=== PATIENT | female | born 1950 | race Caucasian/White ===

== ENCOUNTER → 2017-09-10 09:46 | Outpatient (CLI) | payer MEDICARE, OTHER, SELFPAY ==
--- NOTE | 2017-09-10 | DI.MRI.S_ITS ---
PROCEDURE: MR LUMBAR SPINE WO CON INDICATIONS: LUMBAR REGION RADICULOPATHY TECHNIQUE: Noncontrast sagittal T1 spin echo and T2 fast echo, sagittal STIR, axial T1 and T2 fast spin echo through the lumbar spine. In cases with scoliosis, additional coronal T2 fast spin echo may be performed. COMPARISON: [facility], RG, SPINE LUMB 2 OR 3VW, 02/02/2015, 14:52. [facility], MR, L-SPINE W&WO CONTRAST, 10/25/2015, 15:01. [facility], MR, L-SPINE WITHOUT CONTRAST, 09/13/2016, 14:03. FINDINGS: Image quality: Excellent. Alignment and Curvature: There is grade 1 anterolisthesis of L4 on L5 and L5 on S1. Bone Marrow: There is spinal fusion at L4-L5 and L5-S1. Degenerative endplate signal changes are present in lumbar spine. No acute vertebral body compression fractures. Spinal Cord: Conus medullaris terminates at the L1-L2 level. Visualized cord demonstrates normal signal and size. Paraspinous Soft Tissues: No paravertebral masses. L1-L2: Normal appearance. L2-L3: Preserved disc height. Mild disc desiccation. There is minimal posterior disc bulge. Mild bilateral facet arthropathy. No central canal nor foraminal stenosis. L3-L4: Mild loss of disc height and disc desiccation. There is posterior disc bulge and posterior/left posterior lateral disc protrusion. The central canal is moderately narrowed, slightly increased compared to the last exam. Moderate to severe left and mild to moderate right foraminal stenosis, slightly increased compared to the last exam. L4-L5: There is left hemilaminectomy and posterior fusion. There is mild posterior osteophyte. The central canal is patent. Mild bilateral foraminal stenosis, unchanged. L5-S1: There is left hemilaminectomy and posterior fusion. There is mild posterior osteophyte. The central canal is patent. [id number] bilateral foraminal stenosis, unchanged. IMPRESSION: 1. Multilevel degenerative and post surgical changes in lumbar spine as described. 2. Moderate central canal stenosis at L3-L4, increased since the last exam. 3. Moderate to severe left and mild right foraminal stenosis at L3-L4, increased since the last exam. Dictated by: Jeanna Crowe M.D. on 09/10/2017 at 13:57 Approved by: Jeanna Crowe M.D. on 09/10/2017 at 14:57
== END ==
PROVIDERS: PCP Family Medicine; Visit Provider Orthopaedic Surgery
DX: M48.061 Spinal stenosis, lumbar region without neurogenic claudication (principal); M51.16 Intervertebral disc disorders with radiculopathy, lumbar region
CPT/HCPCS: 72148

== ENCOUNTER 2017-10-29 09:12 | Inpatient (IN) | payer MEDICARE, OTHER, SELFPAY ==
[2017-10-15 12:36] VITALS: BMI 48.9
[2017-10-29] VITALS (13 sets, daily range): BP systolic 140–168; BP diastolic 68–91; PULSE 59–73; RESP 11–20; TEMP 36.1–36.8; O2SAT 94–97; BMI 47.7
--- NOTE | 2017-10-29 | DI.RAD.S_ITS ---
PROCEDURE: XR LUMBAR SPINE 2-3V INDICATIONS: LUMBAR STENOSIS AND NEUROGENIC CLAUDICATION H/O LAMINECTOMY TECHNIQUE: AP and lateral views of the lumbar spine were acquired. COMPARISON: [facility], , -SPINE 2-3 VIEWS, 10/02/2011, 8:35. FINDINGS: Intraoperative fluoroscopy was provided for the referring service. Total fluoroscopy time was 142.9 seconds with a total cumulative dose of 140.73 mGy. Provided fluoroscopic images document the presence of intervertebral disc spacer devices and posterior spinal fusion hardware involving the lower lumbar spine. IMPRESSION: Intraoperative fluoroscopy was provided for the referring service. Please consult the operative note for further details. Dictated by: Ilan Caro M.D. on 10/29/2017 at 15:50 Approved by: Ilan Caro M.D. on 10/29/2017 at 15:52
--- NOTE | 2017-10-29 10:35 | PM.PREOP ---
Pre-operative Note Interval Note Pre-op Check: Yes History & Physical Reviewed by Physician and Yes Exam Performed Changes: No
--- NOTE | 2017-10-29 10:36 | PM.OP.1 ---
Operative Date/Time/Diagnoses Date of procedure: 10/29/17 Time of procedure: 13:55 Pre-op diagnosis: Lumbar stenosis Lumbar spondylolisthesis History of lumbar laminectomy Post-op diagnosis: same Procedure & Clinicians Procedure: L3-4 anterior fusion with cage L3-4 posterior fusion with screws Iliac crest bone graft L3-4 revision laminectomy Use of microscope Placement of epidural catheter Same procedure as scheduled: Yes Indications: [age] year old female with intractable pain from stenosis. They had failed conservative management and requested operative intervention. Risks and benefits of surgery were discussed and appropriate consents were obtained. Surgeon: Rohan Steel Social Insurance Specialist: Paula Driver Anesthesia Type: General Operative Notes Findings: None Closure Type: primary Specimen(s): none sent Implants & Drains: Nuvasive XLIF cage and MAS Reline screws Applied: catheter Estimated Blood Loss (mL): 30 Blood products transfused: none Procedure in detail: Patient was brought to the operating room and intubated on the table. Time-out was performed. They were then rolled over to the lateral decubitus position with the [id number]. The table was bent and they were taped down in the correct position. X-rays were taken to confirm a true AP and lateral. Preoperative antibiotics were given. The left flank was prepped and draped in standard sterile fashion. Using fluoroscopy, a 3 cm incision was made above the iliac crest. We bluntly dissected down with Metzenbaum scissors and split the 3 abdominal muscle layers. We dissected out the retroperitoneal space and using finger guidance, brought our 1st dilator down to the psoas muscle. Using neuromonitoring and fluoroscopy, we placed it through the psoas onto the L3-4 disc space in an anterior position and gradually pulled the dilator posteriorly along the disc space. We placed our guidewire and measured our depth for the retractor. We then dilated with the next 2 dilators and then placed our retractor over the dilators. Position was confirmed with fluoroscopy and the retractor was locked down to the bar. We opened up the retractor and checked with neuro monitoring. We then placed the maria victoria and again checked with neuro monitoring. The retractor was opened further and the ALL retractor was placed. An annulotomy was performed. We then performed a complete diskectomy with ring curette, pituitary, box osteotome. A Wilson was advanced across the disc space under fluoroscopy to release the lateral annulus on the opposite side. We then used sequentially larger trials and confirmed under fluoroscopy. An XLIF cage was packed with Osteocell bone graft and impacted into the L3-4 disc space with fluoroscopy for the anterior fusion at this level. The wound was irrigated. The retractor was closed down. The maria victoria was removed. We carefully removed the retractor with direct visualization to make sure there was no neurovascular or abdominal injury. Final x-rays were taken. The muscle fascia was closed, superficial tissue was closed. The skin was closed. Sterile dressing was placed. The patient was then rolled over on the well-padded prone position on the Irwin table. Using fluoroscopy for localization, a 4 cm incision was made to the right of the midline. We used Bovie to split the fascia. We then percutaneously placed Jamshidi needles down the right pedicles of L3 and L4 with neural monitoring and fluoroscopy. These were changed out 2 guidewires and then we tapped and placed our screw shanks. The retractor was opened and we cleared the transverse processes and lamina. The transverse processes were decorticated with a bur. We then brought in the microscope. A revision laminectomy was performed at L3-4 level with a bur and Kerrison rongeurs. We carefully depressed the dura but could just get past midline due to scarring from her previous surgery. We also completed a near total facetectomy. In the in the ball probe could be swept out to the neural foramen cephalad and caudally and everything was opened. An epidural catheter was primed with 4mL of 0.5% bupivacaine, 100 mcg fentanyl, 4 mg Duramorph, 1 mg Stadol. The dura was depressed under the cephalad lamina with a ball probe and the epidural catheter was gently advanced 2cm cephalad. It wouldn't go any futher from her previous scar tissue but this was what we could get. The wound was copiously irrigated. The retractor was removed and the screw heads placed. We measured and placed a benny and locked it down. A small stab incision was made over the PSIS and a Jamshidi needle was placed into the iliac crest and several mL of bone marrow was aspirated. This was mixed with our locally harvested bone graft as well as the remaining Osteocell and placed in the posterolateral gutter for fusion at L3-4. The fascia was then closed. The epidural was then injected without resistance. The catheter was pulled and we closed more over the fascia. Vancomycin powder was placed in the wound. The superficial and skin were closed. Sterile dressing was placed. The patient was then rolled over, extubated, brought to the recovery room with no complications. Complications: none Condition: stable Disposition: PACU Plan for aftercare: Inpatient. Up with physical therapy
[2017-10-29] MEDS: LACTATED RINGERS 1,000 ML 42 ML IV ×2 (10:37→13:18)
[2017-10-29] MEDS: CEFAZOLIN 2 GM/100 ML FROZ.PIGGY IV ×2 (11:07→18:28)
--- NOTE | 2017-10-29 12:15 | SUR.OPER ---
Right lateral on padded OR table. Head on pillow, gel axillary roll, pillow to support left arm. Legs flexed, pillows between legs, gel pad under down leg and ankle. Multiple passes of 3 inch cloth tape across shoulder, hip, upper and lower legs to secure patient on OR table.
--- NOTE | 2017-10-29 12:15 | SUR.OPER ---
Prone on spine table, head in foam head support, padded chest and pelvic supports, gel pad at knees, lower legs supported by pillows; nipples, genitalia and toes free of pressure, arms secured on foam padded arm boards at <90 degrees abduction. Tape over blanket at thigh secured to table.
[2017-10-29] MEDS: VANCOMYCIN 1,000 MG VIAL 1000 MG TOP (12:47)
[2017-10-29] MEDS: THROMBIN (BOVINE) 5,000 UNIT VIAL 5000 UNIT TOP (12:47)
[2017-10-29] MEDS: BUPIVACAINE 0.5% (PF) 4 ML, MORPHINE-PF 4 MG, BUTORPHANOL 1 MG, fentaNYL 100 MCG INJ (12:48)
[2017-10-29] MEDS: SODIUM CHLORIDE 0.9% 1,000 ML, GENTAMICIN 80 MG IRR (12:50)
[2017-10-29] MEDS: HYDROCODONE/ACET 5/325 TABLET 1 TAB PO (17:10)
[2017-10-29] MEDS: LACTATED RINGERS 1,000 ML 125 ML IV (17:11)
[2017-10-29] MEDS: CELECOXIB 200 MG CAPSULE 400 MG PO (18:28)
[2017-10-29] MEDS: DOCUSATE 100 MG CAPSULE PO (20:40)
[2017-10-29] MEDS: LOSARTAN 25 MG TABLET PO (20:41)
[2017-10-29] MEDS: SENNOSIDES 8.6 MG TABLET 17.2 MG PO (20:41)
[2017-10-29] MEDS: ESCITALOPRAM 10 MG TABLET PO (20:41)
[2017-10-29] MEDS: HYDROCODONE/ACET 5/325 TABLET 2 TAB PO (22:02)
[2017-10-30] MEDS: CEFAZOLIN 2 GM/100 ML FROZ.PIGGY IV (02:49)
--- NOTE | 2017-10-30 04:10 | PC.NURSE ---
shift note- Pt AOx3, reports no numbness beyond normal home baseline. Pedal pulses equal bilaterally. Dressings are CDI. Mcdonald clear yellow. Pt appears relaxed, appropriate, cooperative. Reports pain 5/10 and declines PO PRN pain meds. Educated pt about medications available. Call light in hand.
[2017-10-30] MEDS: HYDROCODONE/ACET 5/325 TABLET 2 TAB PO ×4 (04:25→21:11)
[2017-10-30 04:35] VITALS: BP 126/61; PULSE 61; RESP 18; TEMP 36.9; O2SAT 97
[2017-10-30 05:39] LABS: Hemoglobin 12.4 g/dL (12.0-16.0)
[2017-10-30] MEDS: LEVOTHYROXINE 75 MCG TABLET PO (05:39)
[2017-10-30 05:47] LABS: Blood Urea Nitrogen 14 mg/dL (7-17); Calcium 9.2 mg/dL (8.4-10.2); Carbon Dioxide 30 mmol/L (22-32); Chloride 100 mmol/L (98-107); Estimated Glomerular Filt Rate > 60.0 mL/min (>60); Glucose 165 mg/dL (80-110); HEMOLYSIS < 15 (0-50); Potassium 4.1 mmol/L (3.4-5.1); Sodium 139 mmol/L (137-145)
[2017-10-30 07:55] VITALS: BP 122/52; PULSE 60; RESP 16; TEMP 36.4; O2SAT 97
--- NOTE | 2017-10-30 08:02 | P.PN_ITS ---
Subjective Date Patient Seen: 10/30/17 Time Patient Seen: 08:00 Interval history: Pain is down to about a 6/10, mostly across the back. Exam Vital Signs (past 8 hours): - 10/30/17 04:35 Temperature 98.4 F Pulse Rate 61 Respiratory Rate 18 Blood Pressure 126/61 H Pulse Oximetry 97 Oxygen Delivery Method Nasal Cannula Oxygen Flow Rate 4 Const Orientation: alert and oriented x3 Back/Spine/Pelvis Other: Dressing clean dry intact, 5/5 motor both lower extremities except for 4/ 5 left hip flexor Objective Labs Result Diagrams: 10/30/17 05:05 10/30/17 05:05 Labs: Laboratory Results - last 24 hr 10/30/17 10/30/17 05:05 05:05 Hgb 12.4 Hct 37.0 Sodium 139 Potassium 4.1 Chloride 100 Carbon Dioxide 30 BUN 14 Creatinine 0.70 Estimated GFR > 60.0 BUN/Creatinine Ratio 20.0 Glucose 165 H Calcium 9.2 Assessment & Plan Post-op Postoperative Procedures Operation Date: 10/29/17 11:15 Actual Procedures Side Surgeon p L3-4 XLIF with Bone Graft. Redo L3-4 Rohan Steel MD She is progressing as expected. We will get her up with physical therapy and mobilize. Anticipate 1-2 more days. Her glucose is elevated and we will check this and treat with insulin if needed while in the hospital Time Spent With Patient less than 15 minutes Quality VTE Deep Vein Thrombosis/Pulmonary Embolism Present on Admission: No
[2017-10-30] MEDS: DOCUSATE 100 MG CAPSULE PO ×2 (08:57→21:11)
[2017-10-30] MEDS: CELECOXIB 200 MG CAPSULE PO ×2 (08:57→21:11)
[2017-10-30] MEDS: ASPIRIN EC 81 MG TABLET PO (08:58)
--- NOTE | 2017-10-30 10:02 | PT.IIE ---
Current Diagnoses Morbid (severe) obesity due to excess calories (10/29/17) Spinal stenosis, lumbar region with neurogenic claudication (10/29/17) Other specified postprocedural states (10/29/17) Surgery Performed Operation Date: 10/29/17 11:15 Actual Procedures p L3-4 XLIF with Bone Graft. Redo L3-4 - Rohan Steel MD Surgical History (Last Updated 10/15/17 @ 13:44 by Roxanna Maldonado, RN) History of ankle surgery (Acute) History of bilateral cataract extraction (Acute) History of bladder repair surgery (Acute) History of carpal tunnel release (Acute) History of partial hysterectomy (Acute) Hx of BSO (bilateral salpingo-oophorectomy) (Acute) Hx of abdominoplasty (Acute) Hx of bilateral breast reduction surgery (Acute) Hx of vitrectomy (Acute) Medical History (Last Updated 10/15/17 @ 13:45 by Roxanna Maldonado RN) Achilles tendon injury (Acute) Anxiety (Acute) Arthritis (Acute) Atypical chest pain (Acute) CHF (congestive heart failure) (Acute) Carotid artery stenosis (Acute) Chronic back pain (Acute) Chronic neck pain (Acute) Eczema (Acute) Edema extremities (Acute) Fatty liver disease, nonalcoholic (Acute) Fibromyalgia (Acute) Fusion of lumbar spine (Acute) Gout (Acute) HTN (hypertension) (Acute) Heart murmur (Acute) Hyperlipidemia (Acute) Hypothyroid (Acute) IBS (irritable bowel syndrome) (Acute) Kidney stones (Acute) LVH (left ventricular hypertrophy) (Acute) Lipoma (Acute) Migraines (Acute) Mosquito bite (Acute) Perforated ear drum (Acute) Seasonal allergies (Acute) Sleep apnea with use of continuous positive airway pressure (CPAP) (Acute) TIA (transient ischemic attack) (Acute) Venous insufficiency (Acute) Physical Therapy Inpatient Evaluation/Re-Eval M1 PT/OT-IP Prior Functional Status Start: 10/30/17 11:23 Freq: NEEDED Status: Active Protocol: Document 10/30/17 11:23 JOHN (Rec: 10/30/17 11:35 JOHN [id number]) Medical Review Prior Functional Status Medical History Reviewed Yes Diet/Fluid Consistency Regular Communication WNL Activities of Daily Living and IADL's Pt states she was independent with all self care and shared IADL's with . Pt did most of cooking, does cleaning and they grocery shop together. Both drive. Prior Functional Level (Other details) Capable can provide 24 hr assist at d/c. Social History Household Members spouse Living Arrangements House Number of Floors (Floors) One Floor Number of Stairs To Enter/Railing? 2 Home Environment Standard Height Toilet Walk in Shower Home Equipment Front Wheel Walker Four Wheel Walker Straight Cane Shower Seat without Backrest Hand Held Shower Long Handled Sponge Long Handled Shoe Horn Hand Etcher Grab Bars Near Toilet Grab Bars In Shower Additional Social History Comment Pt has adjustable power bed at home. Pt declines sock aid as she never wears socks. M1 PT/OT-IP Prior Functional Status Start: 10/30/17 11:51 Freq: NEEDED Status: Active Protocol: Document 10/30/17 10:02 AB (Rec: 10/30/17 12:05 AB [id number]) Medical Review Prior Functional Status Medical History Reviewed Yes Diet/Fluid Consistency Regular Communication WNL Mobility and Gait modified independent with mobilities and ambulation without AD but occasionally uses a SPC for ambulation depending on level of pain Activities of Daily Living and IADL's Pt states she was independent with all self care and shared IADL's with . Pt did most of cooking, does cleaning and they grocery shop together. Both drive. Prior Functional Level (Other details) Capable can provide 24 hr assist at d/c. Social History Household Members spouse Living Arrangements House Number of Floors (Floors) One Floor Number of Stairs To Enter/Railing? 2 steps with R rail/bench ( per pt) but sometimes uses a SPC on R to do stairs Home Environment Standard Height Toilet Walk in Shower Home Equipment Front Wheel Walker Four Wheel Walker Straight Cane Manual Wheelchair Shower Seat without Backrest Hand Held Shower Long Handled Sponge Long Handled Shoe Horn Hand Etcher Grab Bars Near Toilet Grab Bars In Shower Employment Status Retired Additional Social History Comment Pt has adjustable power bed at home. Pt declines sock aid as she never wears socks. M2 PT-IP Current Condition Start: 10/30/17 11:51 Freq: NEEDED Status: Active Protocol: Document 10/30/17 10:02 AB (Rec: 10/30/17 12:05 AB [id number]) Physical Therapy Current Condition Current Condition Evaluation Date 10/30/17 Treatment Diagnosis s/p L3-4 XLIF with bone graft and L3-4 laminectomy redo; difficulty in walk Onset Date 10/29/17 Precautions Lumbar Precautions Log Roll No Twisting Limit Bending Lifting Restriction of 10 lbs Gait Belt above Incisional Area M3 PT-IP Subjective Start: 10/30/17 11:51 Freq: NEEDED Status: Active Protocol: Document 10/30/17 10:02 AB (Rec: 10/30/17 12:05 AB [id number]) Subjective Physical Therapy Visit Type Type Initial Evaluation Visit Start Time 10:02 Visit Stop Time 10:49 Total Visit Minutes 47 Number of FREIGHT CALLER Visits 0 Physical Therapy Visit Comments Patient Comments pt agreeable to do therapy Therapy Pain Assessment Pain When Pain Assessed During Mobility Pain Present Pain Present Pain Reported Location Back Intensity 6 Scale Used Numeric (1 - 10) Pain Management Techniques Apply Cold Re-positioning Timing of Activity with Medications M4 PT-IP Mobility and Gait Start: 10/30/17 11:51 Freq: NEEDED Status: Active Protocol: Document 10/30/17 10:02 AB (Rec: 10/30/17 12:05 AB [id number]) PT-Bed Mobility Assessment Rolling Type of Rolling Log Rolling Level of Assist Standby Assistance Supine to Sit Supine to Sit Standby Assistance PT-Transfer Assessment Sit to and From Stand Sit to and from Stand Contact Guard Assistance Equipment Transfer Assistive Device Gait Belt Front Wheeled Walker Transfers Transfer Destination Chair Transfer Technique pt ambulated to the chair using FWW Transfer Ability Level of Assist Contact Guard Assistance Minimal Assistance Comments Mobility Comments pt with c/o lightheadedness during ambulation. BP prior to tx: 117/59 after ambulation: 129/61 Gait Assessment Gait Gait Assistance Required: Contact Guard Assist Minimum Assistance Distance (Feet) (feet) 15 Able to Maintain Weight Bearing Status Yes During Gait Assistive Devices Assistive Device Gait Belt Front Wheeled Walker Orthotic/Prosthetic Devices or Brace: No Gait Deviations General Gait Pattern Decreased Stride Length Decreased Feet Clearance Factors Limiting Gait Function Factors Limiting Gait Function Decreased Activity Tolerance Decreased Strength Pain Poor Balance Poor Safety Awareness PT-Balance Assessment Sitting Balance and Reactions Static Sitting Balance Ability Good Dynamic Sitting Balance Ability Good Standing Balance and Reactions Static Standing Balance Ability Fair Dynamic Standing Balance Ability Fair Device Used FWW M5 PT-IP Objective Assessments Start: 10/30/17 11:51 Freq: NEEDED Status: Active Protocol: Document 10/30/17 10:02 AB (Rec: 10/30/17 12:05 AB [id number]) Orientation Orientation/Cognition Level of Alertness Alert Orientation Name Age Birthday Month Date Year Day of Week Place Situation Safety Awareness Understands Safety Issues Gross Range of Motion Lower Extremity ROM Assessment Within Functional Limits Strength Lower Extremity Strength Assessment Bilaterally Impaired Hip 3+/5 Knee 4-/5 Sensation Assessment Sensation Gross Sensation Right LE Impaired Left LE Impaired Sensation Description Numbness Tingling Muscle Tone Muscle Tone WNL Yes M6 PT-IP Treatment Start: 10/30/17 11:51 Freq: NEEDED Status: Active Protocol: Document 10/30/17 10:02 AB (Rec: 10/30/17 12:05 AB [id number]) Physical Therapy Treatment Education Education Provided Precautions Weight Bearing Status Post-Op Packet Safety M7 PT-IP Assessment and Plan Start: 10/30/17 11:51 Freq: NEEDED Status: Active Protocol: Document 10/30/17 10:02 AB (Rec: 10/30/17 12:05 AB [id number]) PT Summary Assessment and Plan Potential Rehabilitation Potential Good Status of Condition at Evaluation Evolving Summary Impairments Pain ROM Strength Balance Coordination Sensation Tone Cognition Bed Mobility Transfers Gait Activity Tolerance Assessment Summary pt unable to tolerate much ambulation due to d/o lightheadedness but BP readyin/54. pt plans to go home with spouse to assist her. stair climbing training will be completed prior to d/c Goals Bed Mobility Goal Standby Assistance Transfer Goal Standby Assistance Gait Goal Standby Assistance Gait Distance 150 Other Goals up/down 2 steps with R rail ascending Frequency of Treatment Frequency Of Treatment Twice a Day Treatment Plan Physical Therapy Treatment Plan Bed Mobility Training Transfer Training Gait Training Therapeutic Exercise Balance Retraining Post Op Education Discharge Planning Hot or Cold Pack Neuromuscular Re-ed Coordination Retraining Manual Therapy Recommendations To Nursing Amount of Assist Needed 1 Person Assist Discharge Recommendations PT Discharge Recommendations Home with Assistance
--- NOTE | 2017-10-30 11:15 | OT.IP.EVAL ---
Current Diagnoses Morbid (severe) obesity due to excess calories (10/29/17) Spinal stenosis, lumbar region with neurogenic claudication (10/29/17) Other specified postprocedural states (10/29/17) Surgery Performed Operation Date: 10/29/17 11:15 Actual Procedures p L3-4 XLIF with Bone Graft. Redo L3-4 - Rohan Steel MD Past Medical History (Last Updated 10/15/17 @ 13:45 by Roxanna Maldonado, RN) Achilles tendon injury (Acute) Anxiety (Acute) Arthritis (Acute) Atypical chest pain (Acute) CHF (congestive heart failure) (Acute) Carotid artery stenosis (Acute) Chronic back pain (Acute) Chronic neck pain (Acute) Eczema (Acute) Edema extremities (Acute) Fatty liver disease, nonalcoholic (Acute) Fibromyalgia (Acute) Fusion of lumbar spine (Acute) Gout (Acute) HTN (hypertension) (Acute) Heart murmur (Acute) Hyperlipidemia (Acute) Hypothyroid (Acute) IBS (irritable bowel syndrome) (Acute) Kidney stones (Acute) LVH (left ventricular hypertrophy) (Acute) Lipoma (Acute) Migraines (Acute) Mosquito bite (Acute) Perforated ear drum (Acute) Seasonal allergies (Acute) Sleep apnea with use of continuous positive airway pressure (CPAP) (Acute) TIA (transient ischemic attack) (Acute) Venous insufficiency (Acute) Surgical History (Last Updated 10/15/17 @ 13:44 by Roxanna Maldonado, RN) History of ankle surgery (Acute) History of bilateral cataract extraction (Acute) History of bladder repair surgery (Acute) History of carpal tunnel release (Acute) History of partial hysterectomy (Acute) Hx of BSO (bilateral salpingo-oophorectomy) (Acute) Hx of abdominoplasty (Acute) Hx of bilateral breast reduction surgery (Acute) Hx of vitrectomy (Acute) Occupational Therapy Inpatient Evaluation/Re-Eval M1 PT/OT-IP Prior Functional Status Start: 10/30/17 11:23 Freq: NEEDED Status: Active Protocol: Document 10/30/17 11:23 JOHN (Rec: 10/30/17 11:35 JOHN [id number]) Medical Review Prior Functional Status Medical History Reviewed Yes Diet/Fluid Consistency Regular Communication WNL Activities of Daily Living and IADL's Pt states she was independent with all self care and shared IADL's with . Pt did most of cooking, does cleaning and they grocery shop together. Both drive. Prior Functional Level (Other details) Capable can provide 24 hr assist at d/c. Social History Household Members spouse Living Arrangements House Number of Floors (Floors) One Floor Number of Stairs To Enter/Railing? 2 Home Environment Standard Height Toilet Walk in Shower Home Equipment Front Wheel Walker Four Wheel Walker Straight Cane Shower Seat without Backrest Hand Held Shower Long Handled Sponge Long Handled Shoe Horn Dairy Tester Grab Bars Near Toilet Grab Bars In Shower Additional Social History Comment Pt has adjustable power bed at home. Pt declines sock aid as she never wears socks. M2 OT-IP Current Condition Start: 10/30/17 11:23 Freq: Status: Active Protocol: Document 10/30/17 11:23 PJM (Rec: 10/30/17 11:35 PJM [id number]) Occupational Therapy Current Condition Current Condition Evaluation Date 10/30/17 Treatment Diagnosis decreased self care/functional mobility after L 3-4 XLIF, redo lami Diagnosis Onset Date 10/29/17 Post Operative Precautions Lumbar Precautions Log Roll No Twisting Limit Bending Lifting Restriction of 10 lbs Gait Belt above Incisional Area M3 OT- IP Subjective and Pain Start: 10/30/17 11:23 Freq: Status: Active Protocol: Document 10/30/17 11:23 PJM (Rec: 10/30/17 11:35 PJM [id number]) OT- Subjective Occupational Therapy Visit Type Type Initial Evaluation Visit Start Time 10:40 Visit Stop Time 11:15 Total Visit Minutes 35 Occupational Therapy Visit Comments Patient Comments 'I don't want to go home until Saturday or Saturday in case something goes wrong. Patient/Caregiver Goals to go home, have less pain OT Pain Assessment Pain When Pain Assessed At Rest Pain Present Pain Present Pain Reported Location Back Intensity 7 Description Aching M4 OT- IP ADL's Start: 10/30/17 11:23 Freq: Status: Active Protocol: Document 10/30/17 11:23 PJM (Rec: 10/30/17 11:35 PJM [id number]) OT [id number] General Evaluation Self-Feeding Ability Independent OT ADL-Grooming General Evaluation Grooming Ability Standby Assistance Areas Needing Assistance Retrieving/Set-up of Grooming Items Comments OT Grooming Comments seated in chair OT ADL-Oral Care General Eval Oral Care Ability Standby Assistance Comments Oral Care Comments seated in chair after set up OT ADL-Dressing General Eval Upper Body Dressing Ability Standby Assistance Areas Needing Assistance Retrieving/Set-up of Clothing Comments OT Dressing Comments lower body dressing to be assessed after saldivar removed OT ADL-Toileting Comments OT Toileting Comments to be assessed after saldivar removed; provided education re : toilet paper aids and body mechanics OT ADL-Bathing Comments OT Bathing Comments to be assessed as activity tolerance improves, pt has long bath sponge and all necessary DME at home M5 OT- IP IADL's Start: 10/30/17 11:23 Freq: Status: Active Protocol: Document 10/30/17 11:23 PJ (Rec: 10/30/17 11:35 [facility] [id number]) OT-Instrumental Activities of Daily Living Deficits IADL Deficits Identified Deficits Home Safety Awareness Awareness of Need for Assistance at Home Good Awareness Ability to Problem Solve Emergency Able to Problem Solve Situations Medication Management Medication Management No Deficits Identified Money Management Money Management No Deficits Identified Meal Preparation Meal Preparation Caregiver Provides Assist Meal Preparation Comments can assist PRN until pt able Grade Checker Grade Checker Caregiver Provides Assist Grade Checker Comments can assist PRN until pt able Driving Driving Caregiver Provides Assist Driving Comments can assist PRN until pt able M6 OT- IP Functional Cognition Start: 10/30/17 11:23 Freq: Status: Active Protocol: Document 10/30/17 11:23 PJM (Rec: 10/30/17 11:35 [facility] [id number]) Cognitive Factors Limiting Selfcare Function Cognitive Ability Level of Alertness Drowsy Patient Orientation Name Age Birthday Month Date Year Day of Week Place Situation Attention Span Ability Capable of Focused Attention Ability to Follow Commands Able to Follow One Step Commands Memory Description No Deficits Noted Safety Awareness No Deficits Noted Problem Solving Ability No deficits Noted Cognitive Comments Cognitive Assessment Comments Pt recalls 3/3 lumbar precautions and familiar with them from previous lumbar surgery 6 years ago. OT- Vision and Hearing OT- Hearing Assessment OT- Hearing Assessment WFL OT- Vision Assessment Visual Acuity WFL Glasses All The Time M7 OT- IP Mobility and Balance Start: 10/30/17 11:23 Freq: Status: Active Protocol: Document 10/30/17 11:23 PJM (Rec: 10/30/17 11:35 [facility] [id number]) OT-Transfer Assessment Comments Mobility Comments see P.T. note OT- Gait Assessment Comments Gait Ability Comments see P.T. note OT- Balance Assessment Comments Other Balance Tests/Deviations/Treatment see P.T. note : M8 OT- IP Objective Assessments Start: 10/30/17 11:23 Freq: Status: Active Protocol: Document 10/30/17 11:23 PJM (Rec: 10/30/17 11:35 PJM [email or web address]) OT Gross Range of Motion Upper Extremity Range of Motion Assessment Within Functional Limits OT Strength Upper Extremity Strength Assessment Within Functional Limits OT- Coordination Assessment Comments Coordination Comments BUE WFL OT-Muscle Tone Assessment Muscle Tone WNL Yes OT Sensation Assessment Comments Summary Comments Pt denies deficits in BUE M9 OT- IP Assessment and Plan Start: 10/30/17 11:23 Freq: Status: Active Protocol: Document 10/30/17 11:23 PJM (Rec: 10/30/17 11:35 PJM [email or web address]) OT Summary Assessment and Plan Potential Rehabilitation Potential Good Analytic Complexity at Evaluation Low Summary OT Impairments Pain Functional Mobility Grooming Dressing Toileting Bathing Toilet Transfers Shower Transfers Assessment Summary Low complexity OT assessment completed with emphasis on self care skills within lumbar spine precautions. Began education re: adapted ADL techniques. Pt currently has performance deficits in standing grooming, lower body dressing, bathing and toileting and will benefit from 1-2 additional OT visits to address goals below. Anticipate pt will d/c home with 24 hr assist from capable at d/c. Goals Grooming Goal Independent Dressing Goal Independent Dairy Tester Toileting Goal Independent Toilet Paper Aid Bathing Goal Standby Assistance Toilet Transfer Goal Independent Shower Transfer Goal Standby Assistance Patient/Caregiver Education Goal Demonstrate Post-Op Precautions Caregiver Independent Assisting Patient OT-Other Goals Grooming to be done in standing with good body mechanics. Days to Meet Goals 3 Frequency of Treatment Frequency Of Treatment Once a Day Treatment Plan OT Treatment Plan ADL Training Functional Mobility Patient/Family Education Discharge Planning Discharge Recommendations OT Discharge Recommendations Home with Assistance Home Equipment Needs pt has all necessary equipt except possible need for toilet paper aid.
[2017-10-30 12:00] VITALS: BP 129/64; PULSE 51; RESP 18; TEMP 36.8; O2SAT 95
--- NOTE | 2017-10-30 14:08 | PT.IPTN ---
Current Diagnoses Morbid (severe) obesity due to excess calories (10/29/17) Spinal stenosis, lumbar region with neurogenic claudication (10/29/17) Other specified postprocedural states (10/29/17) Surgery Performed Operation Date: 10/29/17 11:15 Actual Procedures p L3-4 XLIF with Bone Graft. Redo L3-4 - Rohan Steel MD Physical Therapy Treatment Note M2 PT-IP Current Condition Start: 10/30/17 11:51 Freq: NEEDED Status: Active Protocol: Document 10/30/17 10:02 AB (Rec: 10/30/17 12:05 AB [id number]) Physical Therapy Current Condition Current Condition Evaluation Date 10/30/17 Treatment Diagnosis s/p L3-4 XLIF with bone graft and L3-4 laminectomy redo; difficulty in walk Onset Date 10/29/17 Precautions Lumbar Precautions Log Roll No Twisting Limit Bending Lifting Restriction of 10 lbs Gait Belt above Incisional Area M3 PT-IP Subjective Start: 10/30/17 11:51 Freq: NEEDED Status: Active Protocol: Document 10/30/17 14:08 AB (Rec: 10/30/17 14:55 AB [id number]) Subjective Physical Therapy Visit Type Type Treatment Note Visit Start Time 14:08 Visit Stop Time 14:28 Total Visit Minutes 20 Number of TAPE CUTTING MACHINE OPERATOR Visits 0 Physical Therapy Visit Comments Patient Comments pt agreeable to do therapy Therapy Pain Assessment Pain When Pain Assessed During Mobility Pain Present Pain Present Pain Reported Location Back Intensity 7 Scale Used Numeric (1 - 10) Pain Management Techniques Apply Cold Timing of Activity with Medications M4 PT-IP Mobility and Gait Start: 10/30/17 11:51 Freq: NEEDED Status: Active Protocol: Document 10/30/17 14:08 AB (Rec: 10/30/17 14:55 AB [id number]) PT-Transfer Assessment Sit to and From Stand Sit to and from Stand Contact Guard Assistance Equipment Transfer Assistive Device Gait Belt Front Wheeled Walker Orthotic/Prosthetic Devices or Brace: No Gait Assessment Gait Gait Assistance Required: Contact Guard Assist Distance (Feet) (feet) 50 Able to Maintain Weight Bearing Status Yes During Gait Assistive Devices Assistive Device Gait Belt Front Wheeled Walker Orthotic/Prosthetic Devices or Brace: No Gait Deviations General Gait Pattern Antalgic Factors Limiting Gait Function Factors Limiting Gait Function Decreased Activity Tolerance Decreased Strength Limited Range of Motion Pain Poor Balance M5 PT-IP Objective Assessments Start: 10/30/17 11:51 Freq: NEEDED Status: Active Protocol: Document 10/30/17 10:02 AB (Rec: 10/30/17 12:05 AB [id number]) Orientation Orientation/Cognition Level of Alertness Alert Orientation Name Age Birthday Month Date Year Day of Week Place Situation Safety Awareness Understands Safety Issues Gross Range of Motion Lower Extremity ROM Assessment Within Functional Limits Strength Lower Extremity Strength Assessment Bilaterally Impaired Hip 3+/5 Knee 4-/5 Sensation Assessment Sensation Gross Sensation Right LE Impaired Left LE Impaired Sensation Description Numbness Tingling Muscle Tone Muscle Tone WNL Yes M6 PT-IP Treatment Start: 10/30/17 11:51 Freq: NEEDED Status: Active Protocol: Document 10/30/17 14:08 AB (Rec: 10/30/17 14:55 AB [id number]) Physical Therapy Treatment Education Education Provided Precautions Weight Bearing Status Post-Op Packet Safety M7 PT-IP Assessment and Plan Start: 10/30/17 11:51 Freq: NEEDED Status: Active Protocol: Document 10/30/17 14:08 AB (Rec: 10/30/17 14:55 AB [id number]) PT Summary Assessment and Plan Potential Rehabilitation Potential Good Summary Impairments Pain ROM Strength Balance Sensation Bed Mobility Transfers Gait Activity Tolerance Progress Towards Goals Progressing Toward Goals Assessment Summary pt requiring one person CGA with transfers and ambulation using FWW. caregiver training set up for tomorrow at 930 am with spouse. plan for stair training also discussed with pt and pt is agreeable. Goals Bed Mobility Goal Standby Assistance Transfer Goal Standby Assistance Front Wheeled Walker Gait Goal Standby Assistance Front Wheel Walker Gait Distance 150 Other Goals up/down 2 steps with R rail ascending Frequency of Treatment Frequency Of Treatment Twice a Day Treatment Plan Physical Therapy Treatment Plan Bed Mobility Training Transfer Training Gait Training Therapeutic Exercise Balance Retraining Post Op Education Discharge Planning Hot or Cold Pack Neuromuscular Re-ed Coordination Retraining Manual Therapy Recommendations To Nursing Amount of Assist Needed 1 Person Assist Discharge Recommendations PT Discharge Recommendations Home with Assistance
--- NOTE | 2017-10-30 15:22 | PC.NURSE ---
Pt up with P.T twice this shift--1PA, pain controlled with po vicodin. 3 drsgs remain CDI. Plan to continue with P.T and d/c in the next 1-2 days.
[2017-10-30 15:25] VITALS: BP 122/62; PULSE 51; RESP 18; TEMP 36.6; O2SAT 95
[2017-10-30 20:30] VITALS: BP 122/53; PULSE 57; RESP 16; TEMP 36.4; O2SAT 97
[2017-10-30] MEDS: ESCITALOPRAM 10 MG TABLET PO (21:12)
[2017-10-30] MEDS: LOSARTAN 25 MG TABLET PO (21:12)
[2017-10-30] MEDS: SENNOSIDES 8.6 MG TABLET 17.2 MG PO (21:12)
[2017-10-30 23:53] VITALS: BP 114/52; PULSE 58; RESP 16; TEMP 36.7; O2SAT 94
[2017-10-31] VITALS (7 sets, daily range): BP systolic 111–130; BP diastolic 55–62; PULSE 52–61; RESP 16–18; TEMP 36.4–37.1; O2SAT 91–97
[2017-10-31] MEDS: LEVOTHYROXINE 75 MCG TABLET PO (06:04)
--- NOTE | 2017-10-31 07:39 | PM.PNPO.1 ---
Subjective Date Patient Seen: 10/31/17 Time Patient Seen: 07:40 Interval history: Much better today. Pain level 3/10. Still requiring assist with physical therapy Exam Vital Signs (past 8 hours): - 10/30/17 23:53 10/31/17 06:08 Temperature 98.1 F 97.6 F Pulse Rate 58 L 59 L Respiratory Rate 16 16 Blood Pressure 114/52 L 118/55 L Pulse Oximetry 94 94 Oxygen Delivery Method Room Air Oxygen Flow Rate 0 Back/Spine/Pelvis Other: Dressing CDI. 5/5 motor both lower extremities Objective Labs Result Diagrams: 10/30/17 05:05 10/30/17 05:05 Assessment & Plan Post-op Postoperative Procedures Operation Date: 10/29/17 11:15 Actual Procedures Side Surgeon p L3-4 XLIF with Bone Graft. Redo L3-4 Rohan Steel MD she is doing very well at this point. Continue mobilizing with physical therapy. Anticipate discharge home tomorrow Time Spent With Patient less than 15 minutes Quality VTE Deep Vein Thrombosis/Pulmonary Embolism Present on Admission: No
[2017-10-31] MEDS: HYDROCODONE/ACET 5/325 TABLET 2 TAB PO ×4 (08:21→22:15)
[2017-10-31] MEDS: DOCUSATE 100 MG CAPSULE PO ×2 (08:21→22:14)
[2017-10-31] MEDS: ASPIRIN EC 81 MG TABLET PO (08:21)
[2017-10-31] MEDS: CELECOXIB 200 MG CAPSULE PO ×2 (08:21→22:14)
[2017-10-31] MEDS: ONDANSETRON 4 MG/2 ML INJ IV (09:17)
--- NOTE | 2017-10-31 12:08 | OT.IP.TRT ---
Current Diagnoses Morbid (severe) obesity due to excess calories (10/29/17) Spinal stenosis, lumbar region with neurogenic claudication (10/29/17) Other specified postprocedural states (10/29/17) Surgery Performed Operation Date: 10/29/17 11:15 Actual Procedures p L3-4 XLIF with Bone Graft. Redo L3-4 - Rohan Steel MD Occupational Therapy Treatment Note M2 OT-IP Current Condition Start: 10/30/17 11:23 Freq: Status: Active Protocol: Document 10/30/17 11:23 PJM (Rec: 10/30/17 11:35 PJM [id number]) Occupational Therapy Current Condition Current Condition Evaluation Date 10/30/17 Treatment Diagnosis decreased self care/functional mobility after L 3-4 XLIF, redo lami Diagnosis Onset Date 10/29/17 Post Operative Precautions Lumbar Precautions Log Roll No Twisting Limit Bending Lifting Restriction of 10 lbs Gait Belt above Incisional Area M3 OT- IP Subjective and Pain Start: 10/30/17 11:23 Freq: Status: Active Protocol: Document 10/31/17 16:47 PJM (Rec: 10/31/17 16:53 PJM [id number]) OT- Subjective Occupational Therapy Visit Type Type Treatment Note Visit Start Time 11:45 Visit Stop Time 12:08 Total Visit Minutes 23 Notes Pt performs slowly; extra time needed to monitor vital signs during functional mobility as pt had episode of low BP and nausea with RN in bathroom earlier this AM Occupational Therapy Visit Comments Patient Comments I feel better now, but I almost passed out this morning . Patient/Caregiver Goals to go home when she feels better OT Pain Assessment Pain When Pain Assessed After Treatment Pain Present Pain Present Pain Reported Location Back Intensity 6 Scale Used Numeric (1 - 10) Description Aching M4 OT- IP ADL's Start: 10/30/17 11:23 Freq: Status: Active Protocol: Document 10/31/17 16:47 PJM (Rec: 10/31/17 16:53 PJM [id number]) OT [id number] General Evaluation Self-Feeding Ability Independent OT ADL-Grooming General Evaluation Grooming Ability Standby Assistance Areas Needing Assistance Retrieving/Set-up of Grooming Items Face Washing OT ADL-Oral Care Comments Oral Care Comments pt declined this session OT ADL-Toileting Comments OT Toileting Comments pt declined this session Cognitive Comments Cognitive Assessment Comments Pt recalls 3/3 lumbar precautions and familiar with them from previous lumbar surgery 6 years ago. Freq: Status: Active Protocol: Document 10/31/17 16:47 PJM (Rec: 10/31/17 16:53 PJ [id number]) OT- Bed Mobility Assessment Rolling Type of Rolling Roll to Left Level of Assistance Standby Assistance Supine to Sit Supine to Sit Assist Minimal Assistance Scooting Scooting to Edge of Bed Standby Assistance OT-Transfer Assessment Sit to and From Stand Sit to and from Stand Contact Guard Assistance Transfers Transfer Ability Contact Guard Assistance Technique Transfer Destination Chair Transfer Technique Stand Step Pivot Devices Transfer Assistive Devices Gait Belt Front Wheeled Walker Comments Mobility Comments Pt performs slowly. BP 113/52 HR 54 in supine; BP 130/61 HR 64 sitting EOB, slight dizziness reoslved quickly. OT- Balance Assessment Sitting Balance and Reactions Static Sitting Balance Ability Good Standing Balance and Reactions Static Standing Balance Ability Good M9 OT- IP Assessment and Plan Start: 10/30/17 11:23 Freq: Status: Active Protocol: Document 10/31/17 16:47 PJ (Rec: 10/31/17 16:53 [facility] [id number]) OT Summary Assessment and Plan Potential Rehabilitation Potential Good Summary OT Impairments Pain Progress Towards Goals Slow Progress due to Activity Tolerance Assessment Summary Pt's participation limited by dizziness and nausea this AM. Pt motivated to regain independence. Plan to work on grooming at sink, toileting, and shower in AM as medical status permits. Goals Grooming Goal Independent Dressing Goal Independent Deburrer Machine Toileting Goal Independent Toilet Paper Aid Bathing Goal Standby Assistance Toilet Transfer Goal Independent Shower Transfer Goal Standby Assistance Patient/Caregiver Education Goal Demonstrate Post-Op Precautions Caregiver Independent Assisting Patient OT-Other Goals Grooming to be done in standing with good body mechanics. Days to Meet Goals 2 Frequency of Treatment Frequency Of Treatment Once a Day Treatment Plan OT Treatment Plan ADL Training Functional Mobility Patient/Family Education Discharge Planning Discharge Recommendations OT Discharge Recommendations Home with Assistance Home Equipment Needs pt has all necessary equipt except possible need for toilet paper aid.
--- NOTE | 2017-10-31 12:43 | PT.IPTN ---
Current Diagnoses Morbid (severe) obesity due to excess calories (10/29/17) Spinal stenosis, lumbar region with neurogenic claudication (10/29/17) Other specified postprocedural states (10/29/17) Surgery Performed Operation Date: 10/29/17 11:15 Actual Procedures p L3-4 XLIF with Bone Graft. Redo L3-4 - Rohan Steel MD Physical Therapy Treatment Note M2 PT-IP Current Condition Start: 10/30/17 11:51 Freq: NEEDED Status: Active Protocol: Document 10/30/17 10:02 AB (Rec: 10/30/17 12:05 AB [id number]) Physical Therapy Current Condition Current Condition Evaluation Date 10/30/17 Treatment Diagnosis s/p L3-4 XLIF with bone graft and L3-4 laminectomy redo; difficulty in walk Onset Date 10/29/17 Precautions Lumbar Precautions Log Roll No Twisting Limit Bending Lifting Restriction of 10 lbs Gait Belt above Incisional Area M3 PT-IP Subjective Start: 10/30/17 11:51 Freq: NEEDED Status: Active Protocol: Document 10/31/17 12:42 AB (Rec: 10/31/17 12:43 AB [id number]) Subjective Physical Therapy Visit Type Type Patient Refusal Notes pt stated that she is not feeling well. spouse in room and stated that pt's BP was low this morning. pt want to rest at this time but agreeable to do therapy later in the afternoon. M4 PT-IP Mobility and Gait Start: 10/30/17 11:51 Freq: NEEDED Status: Active Protocol: Document 10/30/17 14:08 AB (Rec: 10/30/17 14:55 AB [id number]) PT-Transfer Assessment Sit to and From Stand Sit to and from Stand Contact Guard Assistance Equipment Transfer Assistive Device Gait Belt Front Wheeled Walker Orthotic/Prosthetic Devices or Brace: No Gait Assessment Gait Gait Assistance Required: Contact Guard Assist Distance (Feet) (feet) 50 Able to Maintain Weight Bearing Status Yes During Gait Assistive Devices Assistive Device Gait Belt Front Wheeled Walker Orthotic/Prosthetic Devices or Brace: No Gait Deviations General Gait Pattern Antalgic Factors Limiting Gait Function Factors Limiting Gait Function Decreased Activity Tolerance Decreased Strength Limited Range of Motion Pain Poor Balance M5 PT-IP Objective Assessments Start: 10/30/17 11:51 Freq: NEEDED Status: Active Protocol: Document 10/30/17 10:02 AB (Rec: 10/30/17 12:05 AB [id number]) Orientation Orientation/Cognition Level of Alertness Alert Orientation Name Age Birthday Month Date Year Day of Week Place Situation Safety Awareness Understands Safety Issues Gross Range of Motion Lower Extremity ROM Assessment Within Functional Limits Strength Lower Extremity Strength Assessment Bilaterally Impaired Hip 3+/5 Knee 4-/5 Sensation Assessment Sensation Gross Sensation Right LE Impaired Left LE Impaired Sensation Description Numbness Tingling Muscle Tone Muscle Tone WNL Yes M6 PT-IP Treatment Start: 10/30/17 11:51 Freq: NEEDED Status: Active Protocol: Document 10/30/17 14:08 AB (Rec: 10/30/17 14:55 AB [id number]) Physical Therapy Treatment Education Education Provided Precautions Weight Bearing Status Post-Op Packet Safety M7 PT-IP Assessment and Plan Start: 10/30/17 11:51 Freq: NEEDED Status: Active Protocol: Document 10/30/17 14:08 AB (Rec: 10/30/17 14:55 AB [id number]) PT Summary Assessment and Plan Potential Rehabilitation Potential Good Summary Impairments Pain ROM Strength Balance Sensation Bed Mobility Transfers Gait Activity Tolerance Progress Towards Goals Progressing Toward Goals Assessment Summary pt requiring one person CGA with transfers and ambulation using FWW. caregiver training set up for tomorrow at 930 am with spouse. plan for stair training also discussed with pt and pt is agreeable. Goals Bed Mobility Goal Standby Assistance Transfer Goal Standby Assistance Front Wheeled Walker Gait Goal Standby Assistance Front Wheel Walker Gait Distance 150 Other Goals up/down 2 steps with R rail ascending Frequency of Treatment Frequency Of Treatment Twice a Day Treatment Plan Physical Therapy Treatment Plan Bed Mobility Training Transfer Training Gait Training Therapeutic Exercise Balance Retraining Post Op Education Discharge Planning Hot or Cold Pack Neuromuscular Re-ed Coordination Retraining Manual Therapy Recommendations To Nursing Amount of Assist Needed 1 Person Assist Discharge Recommendations PT Discharge Recommendations Home with Assistance
--- NOTE | 2017-10-31 14:03 | CM.IDA ---
Addendum entered by MASON Quintero 11/01/17 15:17: DC Note: Home today w/spouse. Pt confident about DCP; RN/PT have no concerns re: safety. Original Note: DCP Assessment: Pt is a 67 yo female, resident of [place]. Pt is admitted for a scheduled spinal surgery w/Dr Steel. Pt's PCP is Priti Hightower; Insurance is Medicare/[employer]. Pt lives w/her , indp at baseline. Pt's spouse does most of the cleaning and pt cooks. PT has assessed and recommendation is to return home w/capable spouse. No barriers to safe DC home expected. No addtl. DME needed. This RECIPROCATING DRILL OPERATOR available if DC needs or concerns arise. 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 Is this patient on Medicare? Yes Prior Living Arrangements House Household Members spouse Type of transporation used prior to Drives own vehicle admit Independent with ADL's Yes Is patient alert and oriented? Yes Caregiver for Another No Referrals Initiated None needed Discharge Plan Home Transportation Arrangement Spouse Review Status In Process Next Review Type Discharge Review
--- NOTE | 2017-10-31 14:21 | PT.IPTN ---
Current Diagnoses Morbid (severe) obesity due to excess calories (10/29/17) Spinal stenosis, lumbar region with neurogenic claudication (10/29/17) Other specified postprocedural states (10/29/17) Surgery Performed Operation Date: 10/29/17 11:15 Actual Procedures p L3-4 XLIF with Bone Graft. Redo L3-4 - Rohan Steel MD Physical Therapy Treatment Note M2 PT-IP Current Condition Start: 10/30/17 11:51 Freq: NEEDED Status: Active Protocol: Document 10/30/17 10:02 AB (Rec: 10/30/17 12:05 AB [id number]) Physical Therapy Current Condition Current Condition Evaluation Date 10/30/17 Treatment Diagnosis s/p L3-4 XLIF with bone graft and L3-4 laminectomy redo; difficulty in walk Onset Date 10/29/17 Precautions Lumbar Precautions Log Roll No Twisting Limit Bending Lifting Restriction of 10 lbs Gait Belt above Incisional Area M3 PT-IP Subjective Start: 10/30/17 11:51 Freq: NEEDED Status: Active Protocol: Document 10/31/17 14:21 AB (Rec: 10/31/17 15:36 AB [id number]) Subjective Physical Therapy Visit Type Type Treatment Note Visit Start Time 14:21 Visit Stop Time 14:48 Total Visit Minutes 27 Number of CRANBERRY BOG SUPERVISOR Visits 0 Physical Therapy Visit Comments Patient Comments pt agreeable to do therapy Therapy Pain Assessment Pain When Pain Assessed During Mobility Pain Present Pain Present Pain Reported Location Back Intensity 8 Scale Used Numeric (1 - 10) Pain Management Techniques Apply Cold Timing of Activity with Medications M4 PT-IP Mobility and Gait Start: 10/30/17 11:51 Freq: NEEDED Status: Active Protocol: Document 10/31/17 14:21 AB (Rec: 10/31/17 15:36 AB [id number]) PT-Transfer Assessment Sit to and From Stand Sit to and from Stand Contact Guard Assistance Equipment Transfer Assistive Device Gait Belt Front Wheeled Walker Transfers Transfer Destination Chair Wheelchair Transfer Technique Stand Step Pivot Transfer Ability Level of Assist Minimal Assistance 1 Person Assistance Gait Assessment Gait Gait Assistance Required: Contact Guard Assist 1 Person Assist Distance (Feet) (feet) 40 Able to Maintain Weight Bearing Status Yes During Gait Assistive Devices Assistive Device Gait Belt Front Wheeled Walker Factors Limiting Gait Function Factors Limiting Gait Function Decreased Activity Tolerance Decreased Strength Pain Poor Balance Poor Safety Awareness Comments Gait Comments pt c/o dizziness after 40 ft of ambulation and assisted to sit down on chair. provided w /c for pt and transferred to w /c using FWW min A and cues. wheeled pt back to room and transferred from w/c to chair using FWW min A and cues. pt c/o nausea and increase pain of 8/10. informed nurse regarding pt. BP prior to ambulation: 131/49 IA 56 O2 sat 95% BP after transferring to chair / after ambulation: 130/54 IA 56. M5 PT-IP Objective Assessments Start: 10/30/17 11:51 Freq: NEEDED Status: Active Protocol: Document 10/30/17 10:02 AB (Rec: 10/30/17 12:05 AB [id number]) Orientation Orientation/Cognition Level of Alertness Alert Orientation Name Age Birthday Month Date Year Day of Week Place Situation Safety Awareness Understands Safety Issues Gross Range of Motion Lower Extremity ROM Assessment Within Functional Limits Strength Lower Extremity Strength Assessment Bilaterally Impaired Hip 3+/5 Knee 4-/5 Sensation Assessment Sensation Gross Sensation Right LE Impaired Left LE Impaired Sensation Description Numbness Tingling Muscle Tone Muscle Tone WNL Yes M6 PT-IP Treatment Start: 10/30/17 11:51 Freq: NEEDED Status: Active Protocol: Document 10/31/17 14:21 AB (Rec: 10/31/17 15:36 AB [id number]) Physical Therapy Treatment Education Education Provided Precautions Safety M7 PT-IP Assessment and Plan Start: 10/30/17 11:51 Freq: NEEDED Status: Active Protocol: Document 10/31/17 14:21 AB (Rec: 10/31/17 15:36 AB [id number]) PT Summary Assessment and Plan Potential Rehabilitation Potential Good Summary Impairments Pain ROM Strength Balance Bed Mobility Transfers Gait Activity Tolerance Progress Towards Goals Slow Progress due to Medical Issues Assessment Summary pt with decrease activity tolerance and unable to do much ambulation. will attempt caregiver training tomorrow as caregiver training not conducted today due to pt not feeling too good. pt also refused to do stair climbing training. will continue to assess pt. Goals Bed Mobility Goal Standby Assistance Transfer Goal Standby Assistance Front Wheeled Walker Gait Goal Standby Assistance Front Wheel Walker Gait Distance 150 Other Goals up/down 2 steps with R rail ascending Frequency of Treatment Frequency Of Treatment Twice a Day Treatment Plan Physical Therapy Treatment Plan Bed Mobility Training Transfer Training Gait Training Therapeutic Exercise Balance Retraining Post Op Education Discharge Planning Hot or Cold Pack Neuromuscular Re-ed Coordination Retraining Manual Therapy Recommendations To Nursing Amount of Assist Needed 1 Person Assist Discharge Recommendations PT Discharge Recommendations Home with Assistance
--- NOTE | 2017-10-31 14:50 | PC.NURSE ---
Ortho: Feeling well this am. Got up to bathroom to try and have a bowel movement when she felt dizzy and lightheaded. Returned to her chair and became nauseated, had dry heaves and thought she would pass out. BP 101/51 p 51. Given zofran and laid back in chair to give med some time to work, 15mins later she was assisted back to bed w/2 people. Dizziness and nausea resolved. In the afternoon got up w/PT and had some sl dizziness but no nausea or dry heaves. BP when checked was back to her base line. Heart rate has been running from 50's to 60's. Ortho's - has been doing well. Does have peripheral neuropathy in her feet which is base line. PPP, feet =/warm. Brisk cap refill. Po pain meds x2 have been effective for pain. Have left [place] in per pt request due to poss. vagal episode this am. Resting in the chair at the moment. Cont w/poc
[2017-10-31] MEDS: SENNOSIDES 8.6 MG TABLET 17.2 MG PO (22:14)
[2017-10-31] MEDS: ESCITALOPRAM 10 MG TABLET PO (22:14)
[2017-10-31] MEDS: LOSARTAN 25 MG TABLET PO (22:14)
--- NOTE | 2017-10-31 23:47 | PC.NURSE ---
Christal shift note: Patient awake, alert and pleasant. No c/o of dizziness this shift. Medicated for pain with Conifer 2 tabs for lower back pain, described as an ache 8/10 with adequate pain control. Up in chair prior to sleeping, CMS intact to BLE. Baseline neuropathy to LLE. Calls appropriately for assistance.
--- NOTE | 2017-11-01 04:06 | PC.NURSE ---
Addendum entered by Delia Valentino R.N. 11/01/17 05:57: Discussed removing Mcdonald catheter while administering 0600 Synthroid. Patient wants some time to think about her options (before or after morning PT). Original Note: NOC shift pt resting, calmly, with CPAP on. Awakes to voice, appropriate, and receptive to nursing care. Logged rolled in bed, pt able to assist with transfer. Dressing to back and left hip cdi. Patient reports pain to lower back at a 6/10, but did not want pain medications and states she is able to tolerate the pain. I reminded to patient that she has pain medications if she is in need and she knows to call when needed.
[2017-11-01] MEDS: LEVOTHYROXINE 75 MCG TABLET PO (05:54)
[2017-11-01 06:05] VITALS: BP 116/59; PULSE 50; RESP 16; O2SAT 94
--- NOTE | 2017-11-01 07:55 | PM.PNPO.1 ---
Subjective Date Patient Seen: 11/01/17 Time Patient Seen: 07:55 Interval history: Was nauseated and dizzy yesterday while trying to go to the bathroom. Also nauseated through other parts of the day but much better with Zofran. Pain is manageable and she is mobilizing. Exam Vital Signs (past 8 hours): - 10/31/17 23:56 11/01/17 06:05 Temperature 98.7 F Pulse Rate 54 L 50 L Respiratory Rate 16 16 Blood Pressure 111/55 L 116/59 L Pulse Oximetry 91 94 Oxygen Delivery Method Room Air Oxygen Flow Rate 0 Back/Spine/Pelvis Other: 5/5 motor both lower extremities. Dressing CDI Objective Labs Result Diagrams: 10/30/17 05:05 10/30/17 05:05 Assessment & Plan Post-op Postoperative Procedures Operation Date: 10/29/17 11:15 Actual Procedures Side Surgeon p L3-4 XLIF with Bone Graft. Redo L3-4 Rohan Steel MD She had some nausea but seems to have resolved. Will plan on sending home today as long as she does well. Time Spent With Patient less than 15 minutes Quality VTE Deep Vein Thrombosis/Pulmonary Embolism Present on Admission: No
--- NOTE | 2017-11-01 07:56 | PM.DS.1 ---
History of Present Illness Date Patient Seen: 11/01/17 Time Patient Seen: 07:56 Chief complaint: L34 XLIF w/bone graft redo laminectomy notes/codes Narrative: Presented with right lower extremity pain and spinal stenosis Discharge Providers Date of admission: 10/29/17 09:12 Primary care physician: Priti Hightower MD Consults: 10/29/17 16:33 Consult to Occupational Therapy Evaluate & Treat Comment: Physician Instructions: Evaluate and treat Consult to Physical Therapy Evaluate & Treat Comment: Physician Instructions: Evaluate and Treat Discharge provider: Rohan Steel MD Summary Discharge Diagnosis: Lumbar stenosis Hospital Course: Was admitted on 10/29/17 for a L3-4 laminectomy and fusion. Pain was rough the 1st night and gradually began getting under control. She began mobilizing well with physical therapy. Had some nausea on postop day 2. But resolved. Time Spent with Patient Less than 30 minutes Exam Vital Signs (past 8 hours): - 11/01/17 06:05 Pulse Rate 50 L Respiratory Rate 16 Blood Pressure 116/59 L Pulse Oximetry 94 Oxygen Delivery Method Room Air Oxygen Flow Rate 0 Back/Spine/Pelvis Other: 5/5 motor both lower extremities Objective Labs Result Diagrams: 10/30/17 05:05 10/30/17 05:05 Discharge Plan Discharge Plan Patient Disposition: Home, Self-Care Discharge Med Rec/Prescriptions Prescriptions: New hydrocodone-acetaminophen 5-325 mg Tablet See Label Instructions .ROUTE .COMPLEX PRN (Reason: Pain, Severe (7-10)) Qty: 50 RF: 0 hydroxyzine pamoate 25 mg Capsule 25 mg PO Q4HR PRN (Reason: Nausea And Vomiting) Qty: 20 RF: 0 ondansetron HCl [Zofran] 4 mg tablet 4 mg PO .qh6 PRN (Reason: nausea and vomiting) Qty: 20 RF: 0 Continue furosemide [Lasix] 40 mg Tablet 40 mg PO DAILY PRN (Reason: Edema) RF: 0 levothyroxine [Synthroid] 75 mcg Tablet 75 mcg PO DAILY RF: 0 diazepam [Valium] 10 mg Tablet 10 mg PO PRN PRN (Reason: medical procedures) RF: 0 loratadine [Claritin] 10 mg Tablet 10 mg PO DAILY PRN (Reason: seasonal allergies) RF: 0 escitalopram oxalate [Lexapro] 10 mg Tablet 10 mg PO BEDTIME RF: 0 aspirin 81 mg Tablet,Delayed Release (Dr/Ec) 81 mg PO DAILY RF: 0 naproxen sodium [Aleve] 220 mg Capsule 2 tab PO DAILY PRN (Reason: pain) RF: 0 losartan 25 mg Tablet 25 mg PO BEDTIME RF: 0 fluticasone [Flonase Allergy Relief] 50 mcg/actuation [place],Suspension 1 spr/day Intranasal DAILY PRN (Reason: Allergic Symptoms) RF: 0 Provider Discharge Instructions Activity: 10 lbs lift. limited BLT Wound Care Dressing: may change dressing and shower POD #5 Discharge Data Primary Care Provider: Priti Hightower Attending Provider: Rohan Steel Admit Date/Time: 10/29/17 09:12 Quality VTE Deep Vein Thrombosis/Pulmonary Embolism Present on Admission: No
[2017-11-01 08:00] VITALS: BP 118/50; PULSE 56; RESP 14; TEMP 36.4; O2SAT 97
[2017-11-01] MEDS: CELECOXIB 200 MG CAPSULE PO (08:58)
[2017-11-01] MEDS: DOCUSATE 100 MG CAPSULE PO (08:58)
[2017-11-01] MEDS: LORATADINE 10 MG TABLET PO (08:58)
[2017-11-01] MEDS: ASPIRIN EC 81 MG TABLET PO (08:58)
[2017-11-01] MEDS: MAGNESIUM HYDROXIDE 30 ML UDC PO (09:01)
[2017-11-01] MEDS: HYDROCODONE/ACET 5/325 TABLET 2 TAB PO ×2 (09:01→13:15)
--- NOTE | 2017-11-01 09:22 | PT.IPTN ---
Current Diagnoses Morbid (severe) obesity due to excess calories (10/29/17) Spinal stenosis, lumbar region with neurogenic claudication (10/29/17) Other specified postprocedural states (10/29/17) Surgery Performed Operation Date: 10/29/17 11:15 Actual Procedures p L3-4 XLIF with Bone Graft. Redo L3-4 - Rohan Steel MD Physical Therapy Treatment Note M2 PT-IP Current Condition Start: 10/30/17 11:51 Freq: NEEDED Status: Active Protocol: Document 10/30/17 10:02 AB (Rec: 10/30/17 12:05 AB [id number]) Physical Therapy Current Condition Current Condition Evaluation Date 10/30/17 Treatment Diagnosis s/p L3-4 XLIF with bone graft and L3-4 laminectomy redo; difficulty in walk Onset Date 10/29/17 Precautions Lumbar Precautions Log Roll No Twisting Limit Bending Lifting Restriction of 10 lbs Gait Belt above Incisional Area M3 PT-IP Subjective Start: 10/30/17 11:51 Freq: NEEDED Status: Active Protocol: Document 11/01/17 09:22 AB (Rec: 11/01/17 12:40 AB [id number]) Subjective Physical Therapy Visit Type Type Treatment Note Visit Start Time 09:22 Visit Stop Time 12:12 Total Visit Minutes 65 Notes conducted split treatment for caregiver training with spouse Number of HOUSEHOLD PERSONAL ASSISTANT Visits 0 Physical Therapy Visit Comments Patient Comments pt agreeable to do therapy Therapy Pain Assessment Pain When Pain Assessed At Rest Pain Present Pain Present Pain Reported Location Back Intensity 7 Scale Used Numeric (1 - 10) Pain Management Techniques Timing of Activity with Medications M4 PT-IP Mobility and Gait Start: 10/30/17 11:51 Freq: NEEDED Status: Active Protocol: Document 11/01/17 09:22 AB (Rec: 11/01/17 12:40 AB [id number]) PT-Bed Mobility Assessment Rolling Level of Assist Standby Assistance Supine to Sit Supine to Sit Standby Assistance 1 Person Assistance Head of Bed Elevated Sit to Supine Sit to Supine Minimal Assistance 1 Person Assistance Scooting Scooting to Edge of Bed Standby Assistance PT-Transfer Assessment Sit to and From Stand Sit to and from Stand Contact Guard Assistance Equipment Transfer Assistive Device Gait Belt Front Wheeled Walker Transfers Transfer Destination Toilet Transfer Technique pt ambulated to the toilet Transfer Ability Level of Assist Contact Guard Assistance 1 Person Assistance Comments Mobility Comments caregiver training conducted for bed mobility and transfers , donning/doffing of safety belt. spouse was able to assist pt safely. Gait Assessment Gait Gait Assistance Required: Contact Guard Assist Distance (Feet) (feet) 100 Able to Maintain Weight Bearing Status Yes During Gait Assistive Devices Assistive Device Gait Belt Front Wheeled Walker Orthotic/Prosthetic Devices or Brace: Yes Gait Deviations General Gait Pattern Antalgic Decreased Stride Length Decreased Feet Clearance Factors Limiting Gait Function Factors Limiting Gait Function Decreased Activity Tolerance Decreased Strength Pain Poor Balance Comments Gait Comments caregiver training conducted with spouse and spouse was able to assist pt with ambulation using FWW providing CGA. Stair Climbing Assessment Evaluation Level of Assist On Stairs Minimal Assistance Moderate Assistance 1 Person Assistance Devices Stair Climbing Assistive Devices Straight Cane Left Railing Right Railing Technique/Endurance Stair Climbing Direction Ascend and Descend Stair Climbing Technique Step to Step Number of Steps Climbed 4 Query Text: Stair Climbing Set # Repetitions (reps) 3 Comments Stair Climbing Comments pt completed up/down steps using bilateral rails min A and cues. pt with c/o dizziness during stair climbing and instructed to sit down. pt rested and agreed to do up/down one step using SPC and RECHECKER. PT assisted pt requiring mod A and cues. caregiver training conducted with pt and sposue and spouse was able to assist pt with stairs. M5 PT-IP Objective Assessments Start: 10/30/17 11:51 Freq: NEEDED Status: Active Protocol: Document 10/30/17 10:02 AB (Rec: 10/30/17 12:05 AB [id number]) Orientation Orientation/Cognition Level of Alertness Alert Orientation Name Age Birthday Month Date Year Day of Week Place Situation Safety Awareness Understands Safety Issues Gross Range of Motion Lower Extremity ROM Assessment Within Functional Limits Strength Lower Extremity Strength Assessment Bilaterally Impaired Hip 3+/5 Knee 4-/5 Sensation Assessment Sensation Gross Sensation Right LE Impaired Left LE Impaired Sensation Description Numbness Tingling Muscle Tone Muscle Tone WNL Yes M6 PT-IP Treatment Start: 10/30/17 11:51 Freq: NEEDED Status: Active Protocol: Document 11/01/17 09:22 AB (Rec: 11/01/17 12:40 AB [id number]) Physical Therapy Treatment Education Education Provided Precautions Weight Bearing Status Post-Op Packet Safety Other Treatments Other Treatment Performed caregiver training conducted and spouse was able to assist pt safely. M7 PT-IP Assessment and Plan Start: 10/30/17 11:51 Freq: NEEDED Status: Active Protocol: Document 11/01/17 09:22 AB (Rec: 11/01/17 12:40 AB [id number]) PT Summary Assessment and Plan Potential Rehabilitation Potential Good Summary Impairments Pain ROM Strength Balance Coordination Sensation Tone Cognition Bed Mobility Transfers Gait Activity Tolerance Progress Towards Goals Slow Progress due to Medical Issues Assessment Summary caregiver conducted and spouse was able to assist pt safely. pt plans to go home today. Goals Bed Mobility Goal Standby Assistance Transfer Goal Standby Assistance Front Wheeled Walker Gait Goal Standby Assistance Front Wheel Walker Gait Distance 150 Other Goals up/down 2 steps with R rail ascending Frequency of Treatment Frequency Of Treatment Twice a Day Treatment Plan Physical Therapy Treatment Plan Bed Mobility Training Transfer Training Gait Training Therapeutic Exercise Balance Retraining Post Op Education Discharge Planning Hot or Cold Pack Neuromuscular Re-ed Coordination Retraining Manual Therapy Recommendations To Nursing Amount of Assist Needed 1 Person Assist Discharge Recommendations PT Discharge Recommendations Home with Assistance
--- NOTE | 2017-11-01 11:29 | OT.IP.TRT ---
Current Diagnoses Morbid (severe) obesity due to excess calories (10/29/17) Spinal stenosis, lumbar region with neurogenic claudication (10/29/17) Other specified postprocedural states (10/29/17) Surgery Performed Operation Date: 10/29/17 11:15 Actual Procedures p L3-4 XLIF with Bone Graft. Redo L3-4 - Rohan Steel MD Occupational Therapy Treatment Note M2 OT-IP Current Condition Start: 10/30/17 11:23 Freq: Status: Active Protocol: Document 10/30/17 11:23 PJM (Rec: 10/30/17 11:35 PJM [id number]) Occupational Therapy Current Condition Current Condition Evaluation Date 10/30/17 Treatment Diagnosis decreased self care/functional mobility after L 3-4 XLIF, redo lami Diagnosis Onset Date 10/29/17 Post Operative Precautions Lumbar Precautions Log Roll No Twisting Limit Bending Lifting Restriction of 10 lbs Gait Belt above Incisional Area M3 OT- IP Subjective and Pain Start: 10/30/17 11:23 Freq: Status: Active Protocol: Document 11/01/17 12:31 PJM (Rec: 11/01/17 12:38 PJM [id number]) OT- Subjective Occupational Therapy Visit Type Type Treatment Note Visit Start Time 10:40 Visit Stop Time 11:29 Total Visit Minutes 49 Notes here for education this session. Occupational Therapy Visit Comments Patient Comments I had a good sleep last night . Patient/Caregiver Goals to go home today OT Pain Assessment Pain When Pain Assessed After Treatment Pain Present Pain Present Pain Reported Location Back Intensity 6 Scale Used Numeric (1 - 10) Description Aching M4 OT- IP ADL's Start: 10/30/17 11:23 Freq: Status: Active Protocol: Document 11/01/17 12:31 PJM (Rec: 11/01/17 12:38 PJM [id number]) OT ADL-Grooming General Evaluation Grooming Ability Independent Areas Needing Assistance Combing/Brushing Hair Face Washing Comments OT Grooming Comments provided education re: body mechanics OT ADL-Oral Care General Eval Oral Care Ability Independent Areas of Assistance Brushing Teeth Devices Oral Care Devices Toothbrush Comments Oral Care Comments provided education re: body mechanics OT ADL-Dressing General Eval Upper Body Dressing Ability Independent Lower Body Dressing Ability Standby Assistance Areas Needing Assistance Pull-Over Shirt Pants/Shorts Shoes Comments OT Dressing Comments Pt needs SBA to get underwear over feet with cnc operator programmer. can assist PRN. Pt has multiple reachers at home. Pt wears slip on shoes; never wears socks. OT ADL-Toileting General Evaluation Toileting Ability Independent Areas Needing Assistance Perform Perineal Hygiene Comments OT Toileting Comments provided education re: body mechanics, pt declines toilet tongs OT ADL-Bathing Bathing Type Bathing Type Shower General Evaluation Bathing Ability Minimal Assistance Areas Needing Assistance Wash/Dry Upper Body Devices Bathing Equipment Long Handled Sponge or Supervisor Carpenters Held Shower Sprayer Shower Chair without Arms Grab Bars Comments OT Bathing Comments can assist PRN at home ; provided long bath sponge M7 OT- IP Mobility and Balance Freq: Status: Active Protocol: Document 11/01/17 12:31 PJM (Rec: 11/01/17 12:38 PJ [id number]) OT-Transfer Assessment Sit to and From Stand Sit to and from Stand Independent Transfers Transfer Ability Independent Standby Assistance Technique Transfer Destination Chair Shower Stall Toilet Devices Transfer Assistive Devices Front Wheeled Walker Comments Mobility Comments Pt independent with toilet transfer using grab bar. Pt has counter next to toilet at home. Pt SBA with shower stall transfer. will assist PRN at home. Pt provided with long bath sponge; has all necessary DME at home. OT- Gait Assessment Gait Gait Assistance Required: Standby Assistance Assistive Devices Assistive Device Front Wheeled Walker Comments Gait Ability Comments 25 ft in room this session OT- Balance Assessment Sitting Balance and Reactions Static Sitting Balance Ability Good Dynamic Sitting Balance Ability Good Standing Balance and Reactions Static Standing Balance Ability Good Dynamic Standing Balance Ability Good M9 OT- IP Assessment and Plan Start: 10/30/17 11:23 Freq: Status: Active Protocol: Document 11/01/17 12:31 PJM (Rec: 11/01/17 12:38 PJ [id number]) OT Summary Assessment and Plan Potential Rehabilitation Potential Excellent Summary Assessment Summary All OT education completed with pt/ this session. All OT goals achieved for this admission. Pt plans to d/c home with 24 hr assist from supprotive . Treatment Plan Other Treatment Recommendations and Next D/C OT Treatment Focus Discharge Recommendations OT Discharge Recommendations Home with Assistance Home Equipment Needs none
--- NOTE | 2017-11-01 14:27 | PC.NURSE ---
Discharge: Feels ready to d/c home today. Spouse present at time of teaching. Seen by PT/OT and given final instructions. OT did help pt shower and showed her how to use assistive devices. Dressing to lt flank and low back were changed after shower today, no drainage for either, wound edges approx. New dressings applied. Mom given this am and pt finally did have a small bm. Has received discharge instructions for constipation. Mcdonald d/c this am and has voided. Po pain meds have been effective for pain. Has tolerated diet today and not needed any zofran. Reviewed instructions for surgical procedure and then - since pt had been feeling a little faint yesterday - she was given instruction sheet for fainting and the different things she could do to stop feeling faint. Pt given rx's. Questions answered. D/c instructions completed. Pt d/c home via auto w/spouse.
== END 2017-11-01 13:30 | disposition home or self-care (01) | DRG 454 ==
PROVIDERS: Admitting Provider Orthopaedic Surgery; PCP Family Medicine; Visit Provider Orthopaedic Surgery
PROC: 0SG00A0 Fusion of Lumbar Vertebral Joint with Interbody Fusion Device, Anterior Approach, Anterior Column, Open Approach (ICD-10-PCS; CPT 22558; principal; 2017-10-29 11:15)
DX: M48.062 Spinal stenosis, lumbar region with neurogenic claudication (principal); Z68.42 Body mass index [BMI] 45.0-49.9, adult; Z98.1 Arthrodesis status; E66.01 Morbid (severe) obesity due to excess calories; E78.5 Hyperlipidemia, unspecified; I11.0 Hypertensive heart disease with heart failure; I50.9 Heart failure, unspecified; R01.1 Cardiac murmur, unspecified; I87.2 Venous insufficiency (chronic) (peripheral); I25.10 Atherosclerotic heart disease of native coronary artery without angina pectoris; G43.909 Migraine, unspecified, not intractable, without status migrainosus; G47.33 Obstructive sleep apnea (adult) (pediatric); Z86.73 Personal history of transient ischemic attack (TIA), and cerebral infarction without residual deficits; M79.7 Fibromyalgia; E89.0 Postprocedural hypothyroidism; G62.9 Polyneuropathy, unspecified; I67.9 Cerebrovascular disease, unspecified; M43.16 Spondylolisthesis, lumbar region; M96.1 Postlaminectomy syndrome, not elsewhere classified; R11.0 Nausea
CPT/HCPCS: 36415; 72100; 76001; 80048; 82962; 85014; 85018; 97116; 97162; 97165; 97530; 97535; C1776; C1788; J0330; J0595; J0690; J1100; J1170; J2274; J2405; J2704; J3010

== ENCOUNTER → 2017-11-26 13:19 | Outpatient (CLI) | payer MEDICARE, OTHER, SELFPAY ==
[2017-10-29 15:55] VITALS: BMI 47.7
--- NOTE | 2017-11-26 | DI.MG.S_ITS ---
UNILATERAL LEFT DIGITAL DIAGNOSTIC MAMMOGRAM 3D/2D SHORT-TERM FOLLOW-UP: 11/26/2017 CLINICAL: Patient returns for a 6 month follow up of the left breast. Family history of breast cancer. Comparison is made to exams dated: 05/23/2017 mammogram - [facility], 03/14/2017 mammogram, and 03/08/2016 mammogram - [facility]. The tissue of the left breast is predominantly fatty. Subcentimeter grouped heterogeneous calcifications in the left breast at 3 o'clock middle depth are stable. No other significant masses, calcifications, or other findings are seen in the breast. IMPRESSION: INCOMPLETE: NEEDS ADDITIONAL IMAGING EVALUATION Subcentimeter grouped heterogeneous calcifications in the left breast at 3 o'clock middle depth are stable. A targeted ultrasound is recommended for further evaluation. This exam was interpreted at Station ID: [id number]. NOTE: For mammograms, a report in lay terms will be sent to the patient. Approximately 15% of breast malignancies will not be visualized mammographically. In the management of a palpable breast mass, a negative mammogram must not discourage biopsy of a clinically suspicious lesion. Electronically Signed By: Ilan Caro M.D. ecl/:11/26/2017 14:02:53 letter sent: Additional Imaging Needed ACR BI-RADS Category 0: Incomplete [id number]
--- NOTE | 2017-11-26 | DI.US.S_ITS ---
ULTRASOUND OF LEFT BREAST: 11/26/2017 CLINICAL: Follow up from addtional views. Comparison is made to exams dated: 11/26/2017 mammogram, 05/23/2017 mammogram - [facility], and 03/14/2017 mammogram - [facility]. Real-time and Doppler ultrasound of the left breast along the 3 o'clock radian were performed. Muse scale images of the real-time examination were reviewed. No suspicious masses or abnormalities were identified. IMPRESSION: PROBABLY BENIGN - FOLLOW-UP RECOMMENDED Subcentimeter grouped heterogeneous calcifications seen on diagnostic mammography in the left breast at 3 o'clock middle depth are stable. There is no correlating mass or abnormality on ultrasound. A follow-up mammogram in 6 months is recommended to demonstrate stability of the calcifications. This exam was interpreted at Station ID: [id number]. Electronically Signed By: Ilan Caro M.D. ecl/:11/26/2017 16:59:41 letter sent: Followup Recommended Ultrasound BI-RADS: 3 Probably benign
== END ==
PROVIDERS: PCP Family Medicine; Visit Provider Family Medicine
DX: R92.1 Mammographic calcification found on diagnostic imaging of breast (principal); Z80.3 Family history of malignant neoplasm of breast
CPT/HCPCS: 76642; 77065; G0279

== ENCOUNTER → 2018-01-25 14:21 | Outpatient (CLI) | payer MEDICARE, OTHER, SELFPAY ==
[2017-10-29 15:55] VITALS: BMI 47.7
--- NOTE | 2018-01-25 | DI.MRI.S_ITS ---
PROCEDURE: MR CERVICAL SPINE WO CON INDICATIONS: SPINAL STENOSIS OF CERVICAL REGION TECHNIQUE: Noncontrast sagittal T1 spin echo and T2 fast spin echo, sagittal STIR, foraminal oblique sagittal T2 fast spin echo, and axial gradient echo or T2 fast spin echo through the cervical spine. COMPARISON: [facility], MR, C-SPINE WITHOUT CONTRAST, 05/06/2015, 9:54. FINDINGS: Image quality: Excellent. Alignment and Curvature: Straightening of the normal cervical lordosis. Trace anterolisthesis of C7 on T1 Bone Marrow: Diffuse endplate degenerative signal changes and spurring. Spinal Cord: Visualized spinal cord has normal size and signal. No cerebellar tonsillar herniation. Paraspinous Soft Tissues: No paravertebral masses. Prevertebral soft tissues are normal in thickness. C2-C3: Bilateral uncovertebral arthropathy and posterior intervening disc osteophyte complex, and bilateral facet disease. No definite canal stenosis. No definite left foraminal stenosis. Mild right foraminal narrowing. No interval change C3-C4: Bilateral uncovertebral arthropathy and posterior intervening disc osteophyte complex, and bilateral facet disease. No canal stenosis. Mild right foraminal stenosis. Mild left foraminal narrowing. No interval change. C4-C5: Bilateral uncovertebral arthropathy and posterior intervening disc osteophyte complex, and bilateral facet arthropathy. Mild canal narrowing. Moderate bilateral foraminal narrowing. No definite interval change. C5-C6: Bilateral uncovertebral arthropathy and posterior intervening disc osteophyte complex, and bilateral facet disease. Mild canal narrowing Moderate to severe right and severe left foraminal stenoses. No interval change C6-C7: Bilateral uncovertebral arthropathy and posterior intervening disc osteophyte complex, and bilateral facet disease. Mild canal narrowing. Moderate right and severe left foraminal stenoses, which appear unchanged. C7-T1: No canal stenosis. No foraminal narrowing. IMPRESSION: Overall, unchanged examination since 05/06/15. Mild midcervical canal narrowing as detailed above, primarily from C4-C6. Bilateral foraminal stenoses, most pronounced at C4-C5, C5-C6 and C6-C7, however no definite interval change. Straightening of the normal cervical lordosis and trace anterolisthesis of C7 on T1 as before. Dictated by: Teto Alfaro M.D. on 01/27/2018 at 9:10 Approved by: Teto Alfaro M.D. on 01/27/2018 at 9:51
== END ==
PROVIDERS: PCP Family Medicine; Visit Provider Orthopaedic Surgery
DX: M48.02 Spinal stenosis, cervical region (principal)
CPT/HCPCS: 72141

== ENCOUNTER → 2018-06-02 08:23 | Outpatient (CLI) | payer MEDICARE, OTHER, SELFPAY ==
[2017-10-29 15:55] VITALS: BMI 47.7
--- NOTE | 2018-06-02 | DI.US.S_ITS ---
PROCEDURE: US ARTERIAL DUPLEX LE BI INDICATIONS: VASCULAR DISEASE TECHNIQUE: Color and pulse Doppler interrogation was performed of both lower extremity arterial systems, with image documentation. COMPARISON: [facility], CT, ANGIOGRAPHY CHEST AND ABDOMEN, 03/25/2013, 16:08. FINDINGS: Right lower extremity: Common femoral artery: 137 cm/sec, with biphasic flow. Deep femoral artery: 106 cm/sec, with biphasic flow. Proximal superficial femoral artery: 136 cm/sec, with biphasic flow. Mid superficial femoral artery: 109 cm/sec, with biphasic flow. Distal superficial femoral artery: 106 cm/sec, with biphasic flow. Popliteal artery: 85 cm/sec, with biphasic flow. Posterior tibial artery: At its midpoint, 273 cm/sec, with biphasic flow. Anterior tibial artery/dorsalis pedis: 109 cm/sec, with 2 biphasic flow. Muse-scale imaging description: Atherosclerotic irregularity can be seen. Left lower extremity: Common femoral artery: 168 cm/sec, with biphasic flow. Deep femoral artery: 108 cm/sec, with biphasic flow. Proximal superficial femoral artery: 144 cm/sec, with biphasic flow. Mid superficial femoral artery: 140 cm/sec, with biphasic flow. Distal superficial femoral artery: 105 cm/sec, with biphasic flow. Popliteal artery: 123 cm/sec, with biphasic flow. Posterior tibial artery: 115 cm/sec, with biphasic flow. Anterior tibial artery/dorsalis pedis: 111 cm/sec, with biphasic flow. Muse-scale imaging description: Atherosclerotic change can be seen. IMPRESSION: There is focal increased flow velocity seen within the mid right posterior tibial artery, which is consistent with a greater than 50% stenosis at this site. Dictated by: Torey Wheatley M.D. on 06/02/2018 at 14:20 Approved by: Torey Wheatley M.D. on 06/02/2018 at 14:23
== END ==
PROVIDERS: PCP Family Medicine; Visit Provider Family Medicine
DX: I70.291 Other atherosclerosis of native arteries of extremities, right leg (principal); I70.202 Unspecified atherosclerosis of native arteries of extremities, left leg
CPT/HCPCS: 93925

== ENCOUNTER 2018-06-21 16:18 | Observation (INO) | payer MEDICARE, OTHER, SELFPAY ==
[2017-10-29 15:55] VITALS: BMI 47.7
[2018-06-21] VITALS (12 sets, daily range): BP systolic 117–142; BP diastolic 38–75; PULSE 51–58; RESP 12–20; TEMP 36.2–36.4; O2SAT 94–98; BMI 45.6
--- NOTE | 2018-06-21 16:22 | DI.CT.S_ITS ---
PROCEDURE: CT HEAD/BRAIN WO CON INDICATIONS: TIA symptoms TECHNIQUE: Noncontrast 4.5 mm thick angled axial sections acquired from the foramen magnum to the vertex, with coronal and sagittal reformats. For radiation dose reduction, the following was used: automated exposure control, adjustment of mA and/or kV according to patient size. COMPARISON: None. FINDINGS: Image quality: Excellent. CSF spaces: Basal cisterns are patent. No extra-axial fluid collections. The ventricles are symmetric in size and shape. Brain: No intracranial bleeds or masses. There is cerebral volume loss for age, with resultant ventricular and sulcal prominence. There are periventricular and deep white matter chronic small vessel ischemic changes. There is intracranial internal carotid artery atherosclerosis. Skull and face: Calvarium and visualized facial bones appear intact, without suspicious lesions. Sinuses: Visualized sinuses and mastoids are clear. IMPRESSION: No acute intracranial disease process. Dictated by: Radha Brock MD, PhD on 06/21/2018 at 17:01 Approved by: Radha Brock MD, PhD on 06/21/2018 at 17:02
--- NOTE | 2018-06-21 16:34 | DI.CT.S_ITS ---
PROCEDURE: CT ANGIO HEAD AND NECK INDICATIONS: cva TECHNIQUE: Pre-contrast 4.5 mm thick sections acquired from the foramen magnum to the vertex. After the administration of intravenous contrast, 1 mm thick sections acquired from the aortic arch through the [employer]. Post-contrast 4.5 mm thick sections then re-acquired from the foramen magnum to the vertex. 3-dimensional pxogsyf-boxbtnsma-rojixsmhob (MIP) and/or volume rendering reformats were acquired of the central intracranial vasculature and neck separately. COMPARISON: [facility], , ANGIO HEAD WITHOUT CONTRAST, 05/23/2017, 15:25. FINDINGS: Image quality: Excellent. BRAIN: CSF spaces: Ventricles are normal in size and shape. Basal cisterns are patent. No extra-axial fluid collections. Brain: No midline shift. No intracranial bleeds or masses. Muse-white matter interface appears intact. Skull and face: Calvarium and facial bones appear intact, without suspicious lesions. Orbits appear normal. Sinuses: Sinuses and mastoids are clear. HEAD CT ANGIOGRAPHY: Anterior circulation: Intracranial internal carotid arteries are normal in flow. High-grade stenosis is noted in the supraclinoid segment of the right internal carotid artery which is not simply changed compared to prior MRA. Moderate atherosclerotic stenosis noted in the supraclinoid segment of the left internal carotid artery which is not significantly changed compared to prior examination. Multifocal moderate stenoses noted in the M1 segments of the middle cerebral arteries bilaterally. High-grade stenosis noted in the origin of the right anterior cerebral artery. There is diminished flow within the right anterior middle cerebral arteries likely related to high-grade supraclinoid right internal carotid artery stenosis. Moderate stenosis of the origin of the left anterior cerebral artery. No aneurysms are seen. Posterior circulation: Visualized portions of the vertebral arteries demonstrate normal caliber, and join to form a normal appearing basilar artery. Flow within the posterior cerebral arteries is normal and symmetric. No aneurysms are seen. NECK CT ANGIOGRAPHY: Carotid system: The great vessels demonstrate a conventional anatomy as they arise from the aortic arch. The origins of the common carotid arteries appear patent. The common carotid arteries demonstrate normal caliber and courses. Calcified and noncalcified atherosclerotic plaque noted in the origin and proximal internal carotid arteries bilaterally which causes less than 50% stenosis of the vessels. Posterior circulation: The origins of the vertebral arteries both appear widely patent. The more superior extracranial portions of both vertebral arteries also demonstrate normal courses and calibers. They join to form a normal appearing basilar artery. Soft tissues: Visualized neck soft tissues demonstrate no suspicious abnormalities. Bones: No suspicious bony lesions. Visualized cervical spine appears normally aligned. IMPRESSION: 1. No acute intracranial disease process. 2. High-grade stenosis involving the supraclinoid segment of the right internal carotid artery stable compared to 05/23/2017. 3. Moderate stenosis involving the supraclinoid segment of the left internal carotid artery stable compared to 05/23/2017. 4. Moderate multifocal stenoses involving the M1 segments of the middle cerebral arteries bilaterally. 5. High-grade stenosis involving the origin of the right anterior cerebral artery. 6. Diminished flow in the right anterior and middle cerebral arteries secondary to high-grade right internal carotid artery stenosis as well as high-grade stenosis of the origin of the right anterior cerebral artery and moderate multifocal stenoses involving the right middle cerebral artery. 7. The vertebral arteries are fully patent. Any quantitative measurements of stenosis were performed using NASCET criteria. Dictated by: Radha Brock MD, PhD on 06/21/2018 at 17:16 Approved by: Radha Brock MD, PhD on 06/21/2018 at 17:26
[2018-06-21] MEDS: SODIUM CHLORIDE 0.9% 1,000 ML 150 ML IV ×2 (16:46→21:22)
--- NOTE | 2018-06-21 16:52 | PC.NURSE ---
States released from [facility] this morning
--- NOTE | 2018-06-21 17:14 | ED_ITS ---
HPI - Neuro Symptoms/Deficit General Chief Complaint: Neuro Symptoms/Deficit Stated Complaint: TIA Symptoms Time Seen by Provider: 06/21/18 16:31 Source: patient, family () and other (friend) Mode of arrival: EMS Limitations: no limitations History of Present Illness HPI Narrative: This is a 68-year-old female who comes to the emergency department for concern for stroke. Patient states that she had slurred speech, she was not making any sense. She states she has had trouble using her left arm and she had sort of tunnel vision and squiggly in her right vision. As stated her right vision had gone away. She states that it is getting better she cannot talk, she is making sense. She states her squeezes a little less on the left but it has been rapidly improving. She states she felt like she was going to pass out but she did not. She did have a headache but it is gone. She denies any chest pain, shortness of breath. She did feel quite nauseated. No vomiting. No issues with bowel movement. She has chronic urinary incontinence. She just got out of the hospital at [facility] this morning she was there for elevated blood pressures and had her heart rate also low in the 20 range at times. They changed her blood pressure medications and increase her losartan. She does take an aspirin 81 mg daily. She has had TIAs in the past. She is treated for hypertension, dyslipidemia she denies any diabetes. She takes medicine for gout and thyroid. On Anticoagulants: No Related Data Home Medications Medication Instructions Recorded Confirmed aspirin 81 mg PO DAILY 10/15/17 10/29/17 diazepam [Valium] 10 mg PO PRN PRN 10/15/17 10/29/17 escitalopram oxalate [Lexapro] 10 mg PO BEDTIME 10/15/17 10/29/17 furosemide [Lasix] 40 mg PO DAILY PRN 10/15/17 04/04/18 levothyroxine [Synthroid] 75 mcg PO DAILY 10/15/17 10/29/17 loratadine [Claritin] 10 mg PO DAILY PRN 10/15/17 04/04/18 losartan 25 mg PO BEDTIME 10/15/17 04/04/18 naproxen sodium [Aleve] 2 tab PO DAILY PRN 10/15/17 10/15/17 fluticasone [Flonase Allergy 1 spr/day INTRANASAL DAILY PRN 10/29/17 10/29/17 Relief] allopurinol 100 mg tablet 100 mg PO DAILY 04/04/18 04/04/18 atorvastatin 40 mg tablet 40 mg PO DAILY 04/04/18 04/04/18 levothyroxine 75 mcg tablet 75 mcg PO DAILY 04/04/18 04/04/18 magnesium 200 mg tablet 100 mg PO DAILY tab 04/04/18 04/04/18 temazepam 7.5 mg capsule 7.5 mg PO BEDTIME PRN 04/04/18 04/04/18 Previous Rx's Medication Instructions Recorded hydrocodone-acetaminophen See Rx Instructions .ROUTE 11/01/17 .COMPLEX PRN #50 tab hydrocodone-acetaminophen [[place]] 1 tab PO Q4-6H PRN #50 tab 11/01/17 hydroxyzine pamoate 25 mg PO Q4HR PRN #20 cap 11/01/17 ondansetron HCl [Zofran] 4 mg PO .qh6 PRN #20 tab 11/01/17 methylprednisolone 4 mg tablets in See Rx Instructions PO PER PKG DIR 04/04/18 a dose pack #21 each Allergies Allergy/AdvReac Type Severity Reaction Status Date / Time pregabalin Allergy Severe Swelling Verified 10/15/17 13:13 all over body tetracycline Allergy Intermediate HIVES Verified 10/29/17 10:01 adhesive tape Allergy Mild Rash with Verified 10/15/17 13:16 prolonged use, (electrodes) chocolate flavor Allergy Mild Rash, Verified 10/15/17 13:13 Gastrointestinal Upset, migraines [place] And Derivatives Allergy Mild Rash, Verified 10/15/17 13:13 Gastrointestinal Upset latex [LATEX] Allergy Mild RASH Verified 10/29/17 10:01 ciprofloxacin AdvReac Severe achilles Verified 10/15/17 13:13 tendon rupture guaifenesin [From ENTEX LA] AdvReac Severe CHEST PAIN Verified 10/29/17 10:01 levofloxacin AdvReac Severe Achilles Verified 10/29/17 10:01 tendon rupture lisinopril AdvReac Severe Cough Verified 10/15/17 13:13 phenylephrine AdvReac Severe CHEST PAIN Verified 10/29/17 10:01 phenylpropanolamine AdvReac Severe CHEST PAIN Verified 10/29/17 10:01 [From ENTEX [place]] pseudoephedrine AdvReac Severe CHEST PAIN Verified 10/29/17 10:01 [From SUDAFED] shellfish derived AdvReac Severe GOUT Verified 10/15/17 13:16 codeine AdvReac Intermediate Nausea, Verified 10/29/17 10:01 vomiting duloxetine AdvReac Mild Causes Verified 10/15/17 13:13 increased anxiety hydromorphone AdvReac Mild STOMACH Verified 10/29/17 10:01 UPSET morphine AdvReac Mild STOMACH Verified 10/29/17 10:01 UPSET IV CONTRAST Allergy Severe Hives, Uncoded 10/15/17 13:13 difficulty breathing [id number] Allergy Severe Anaphylaxis Uncoded 10/15/17 13:00 phenylephrine-guaifenesin AdvReac Severe Chest Uncoded 10/15/17 13:13 Pain, SOB phenylpropanolamine AdvReac Severe Chest Pain Uncoded 10/15/17 13:13 Review of Systems Review of Systems ROS Unobtainable: All systems reviewed & are unremarkable except as noted in HPI and below Constitutional Denies chills, Denies fever(s), Reports headache(s), Denies lethargy and Denies weakness Eyes Reports change in vision ENT Ears, Nose, Mouth, and Throat: Reports headache(s), Denies disequilibrium and Denies other (facial droop) Cardiovascular Denies chest pain, Denies diaphoresis, Denies syncope, Denies edema, Denies irregular heart rhythm, Reports lightheadedness, Denies palpitations, Denies dyspnea, Denies dyspnea on exertion and Denies orthopnea Respiratory Denies change in phlegm color, Denies chest congestion, Denies cough, Denies excessive phlegm production, Denies dyspnea, Denies dyspnea on exertion and Denies wheezing Gastrointestinal Gastrointestinal: Denies abdominal pain, Denies change in bowel habits, Denies diarrhea, Reports nausea and Denies vomiting Genitourinary Denies hematuria, Denies urinary frequency, Denies flank pain, Reports urinary incontinence (Chronic) and Denies urinary urgency Musculoskeletal Denies numbness and Denies tingling Integumentary/Breasts Denies rash Neurologic Reports abnormal speech, Reports confusion, Denies syncope, Reports headache(s), Reports focal weakness (Left arm), Denies numbness, Denies tingling, Denies disequilibrium and Denies weakness Psychiatric Reports confusion Endocrine Denies palpitations Allergic/Immunologic Denies wheezing [facility] Medical History Achilles tendon injury (Acute) Anxiety (Acute) Arthritis (Acute) Atypical chest pain (Acute) CHF (congestive heart failure) (Acute) Carotid artery stenosis (Acute) Chronic back pain (Acute) Chronic neck pain (Acute) Eczema (Acute) Edema extremities (Acute) Fatty liver disease, nonalcoholic (Acute) Fibromyalgia (Acute) Fusion of lumbar spine (Acute) Gout (Acute) HTN (hypertension) (Acute) Heart murmur (Acute) Hyperlipidemia (Acute) Hypothyroid (Acute) IBS (irritable bowel syndrome) (Acute) Kidney stones (Acute) LVH (left ventricular hypertrophy) (Acute) Lipoma (Acute) Migraines (Acute) Mosquito bite (Acute) Perforated ear drum (Acute) Seasonal allergies (Acute) Sleep apnea with use of continuous positive airway pressure (CPAP) (Acute) TIA (transient ischemic attack) (Acute) Venous insufficiency (Acute) Surgical History History of ankle surgery (Acute) History of bilateral cataract extraction (Acute) History of bladder repair surgery (Acute) History of carpal tunnel release (Acute) History of partial hysterectomy (Acute) Hx of BSO (bilateral salpingo-oophorectomy) (Acute) Hx of abdominoplasty (Acute) Hx of bilateral breast reduction surgery (Acute) Hx of vitrectomy (Acute) Social History household members: spouse Smoking Status: Never smoker alcohol intake: never Social History household members: spouse Smoking Status: Never smoker alcohol intake: never Exam Narrative Exam Narrative: GEN: well nourished, well appearing female, alert and oriented x 3, patient appears to be in no acute distress. HEENT: Atraumatic, pupils are equal round reactive to light, extraocular movements are intact, nares are clear, TMs are clear with no fluid, there is no conjunctival pallor. Throat is clear without any exudates, erythema, tonsillar enlargement or uvular deviation, no facial droop. HEART: Regular rate and rhythm without murmur, clicks, rubs. LUNGS:Lungs clear to auscultation, no wheezes, rales, crackles, chest moves symmetrically ABD:bowel sounds normal, soft, non-tender, no guarding, rebound, rigidity, no masses noted, no hepatosplenomegaly :No CVA tenderness MSCL: Non-tender, no muscle atrophy, muscles strength 5/5 upper and lower extremities, patient has slightly decreased overnight cashier on left, able to hold arm 10/10, full range of motion, normal gait NEURO:CN 2-12 intact, sensation normal, reflexes 2/4 upper and lower extremities. finger nose finger test normal, heel mccormack test normal Initial Vital Signs Initial Vital Signs: Vital Signs Temperature 97.6 F 06/21/18 16:23 Pulse Rate 51 L 06/21/18 16:23 Respiratory Rate 20 06/21/18 16:23 Blood Pressure 131/39 L 06/21/18 16:23 Pulse Oximetry 98 06/21/18 16:23 Scores NIH Stroke Scale Level of Conciousness: Alert, keenly responsive Ask month/age: Answers both questions correctly. Open/close eyes, close hand: Performs both tasks correctly Best gaze horizontal: Normal Visual hall: Partial hemianopia Facial palsy: Normal symetrical movement Left arm drift: No drift for full 10 sec Right arm drift: No drift for full 10 sec Left leg drift: No drift for full 10 sec Right leg drift: No drift for full 10 sec Limb ataxia: Absent Sensory on face/arms/legs: Normal, no sensory loss Best language: No aphasia, normal Dysarthria: Normal Extinction or inattention: No abnormality Total NIH Stroke scale score: 1 Course Orders Ordered: ED Orders 06/21/18 16:20 EKG-12 Lead Stat 06/21/18 16:22 CT head/brain wo con Stat 06/21/18 16:34 CT angio head and neck Stat 06/21/18 17:30 CMP [Comprehensive Metabolic Panel] Stat Complete Blood Count AUTO DIFF Stat Partial Thromboplastin Time Stat Prothrombin Time INR Stat Troponin I Stat Sodium Chloride (Normal Saline 0.9%) 1,000 mls @ 150 mls/hr IV CONT BURKE Last Admin: 06/21/18 16:46 Dose: 150 mls/hr Discontinued Medications Aspirin (Aspirin Chew) 243 mg PO NOW ONE Stop: 06/21/18 17:26 Last Admin: 06/21/18 17:31 Dose: 243 mg Atorvastatin Calcium (Lipitor) 80 mg PO NOW ONE Stop: 06/21/18 19:05 Last Admin: 06/21/18 19:24 Dose: 80 mg Clopidogrel Bisulfate (Plavix) 75 mg PO NOW ONE Stop: 06/21/18 19:05 Last Admin: 06/21/18 19:14 Dose: 75 mg Vital Signs - 8 hr 06/21/18 16:23 Temperature 97.6 F Pulse Rate 51 L Respiratory Rate 20 Blood Pressure 131/39 L Pulse Oximetry 98 MDM - Neuro Symptoms/Deficit Lab Data Attestation: I reviewed the patient's lab results. Result diagrams: 06/21/18 17:30 06/21/18 17:30 Lab Results 06/21/18 06/21/18 06/21/18 Range/Units 17:30 17:30 17:30 WBC 10.9 (4.5-11.0) X10^3/uL RBC 5.10 (4.0-5.2) X10^6/uL Hgb 14.7 (12.0-16.0) g/dL Hct 45.0 (36-46) % MCV 88.2 (80-100) fL MCH 28.9 (26-34) PG MCHC 32.7 (30-36) % RDW 13.8 (11.6-14.8) % Plt Count 366 (150-400) X10^3/uL Neut % (Auto) 79.4 H (50-75) % Lymph % (Auto) 13.8 L (25-40) % Campbell % (Auto) 5.0 (3-14) % Eos % (Auto) 1.4 L (2-4) % Baso % (Auto) 0.4 (0-2) % Neut # (Auto) 8600 H (1806-9664) /uL Lymph # (Auto) 1500 (1010-7920) /uL Campbell # (Auto) 500 (0-900) /uL Eos # (Auto) 100 (0-450) /uL Baso # (Auto) 0 (0-100) /uL PT 11.7 (10.1-12.7) SECONDS INR 1.0 (0.9-1.3) APTT 25 L (26.4-36.2) SECONDS Sodium 138 (137-145) mmol/L Potassium 3.9 (3.4-5.1) mmol/L Chloride 96 L (98-107) mmol/L Carbon Dioxide 31 (22-32) mmol/L BUN 25 H (7-17) mg/dL Creatinine 0.90 (0.52-1.04) mg/dL Estimated GFR > 60.0 (>60) mL/min BUN/Creatinine Ratio 27.8 H (6-22) Glucose 113 H (80-110) mg/dL Calcium 9.7 (8.4-10.2) mg/dL Total Bilirubin 0.5 (0.2-1.3) mg/dL AST 21 (14-36) IU/L ALT 29 (9-52) IU/L Alkaline Phosphatase 89 (38-126) U/L Troponin I < 0.012 (0.01-0.034) ng/mL Total Protein 7.6 (6.3-8.2) g/dL Albumin 4.4 (3.5-5.0) g/dL Globulin 3.2 (1.7-4.1) g/dL Albumin/Globulin Ratio 1.4 (1.0-2.8) Point of Care Testing Glucose POC [address] scan - head: Radiologist's impression: [place] [address] CT Scan Report Signed Patient: Paula Restrepo KMR#: [id number] : 1950Acct:[id number] Age/Sex: 68 / FDate of Service: 06/21/18 Loc: ED Accession Number: [id number] Procedure: CT head/brain wo con Ordering Provider: Angelica Garner D.O. PROCEDURE: CT HEAD/BRAIN WO CON INDICATIONS: TIA symptoms TECHNIQUE: Noncontrast 4.5 mm thick angled axial sections acquired from the foramen magnum to the vertex, with coronal and sagittal reformats. For radiation dose reduction, the following was used: automated exposure control, adjustment of mA and/or kV according to patient size. COMPARISON: None. FINDINGS: Image quality: Excellent. CSF spaces: Basal cisterns are patent. No extra-axial fluid collections. The ventricles are symmetric in size and shape. Brain: No intracranial bleeds or masses. There is cerebral volume loss for age, with resultant ventricular and sulcal prominence. There are periventricular and deep white matter chronic small vessel ischemic changes. There is intracranial internal carotid artery atherosclerosis. Skull and face: Calvarium and visualized facial bones appear intact, without suspicious lesions. Sinuses: Visualized sinuses and mastoids are clear. IMPRESSION: No acute intracranial disease process. Dictated by: Radha Brock MD, PhD on 06/21/2018 at 17:01 Approved by: Radha Brock MD, PhD on 06/21/2018 at 17:02 CTA Head: Radiologist's impression: [facility] DATE TYPE STATUS AUTHOR Hx 06/21/18 16:34 Radha Brock 06/21/18 16:22 Radha Brock 06/02/18 00:00 CorryTorey 01/25/18 00:00 Teto Alfaro 11/26/17 00:00 Caro,Edward 11/26/17 00:00 Caro,Edward 10/29/17 09:12 10/29/17 00:00 Caro,Edward 09/10/17 00:00 Dexter Crowe Kimber Restreposhemar Miller 68, F104/12/1949 [facility] ER, ED.LOC - Main ED: R06 Neuro Symptoms/Deficit Search Chart Swelling all over body HIVES Rash with prolonged use, (electrodes) Rash, Gastrointestinal Upset, migraines Rash, Gastrointestinal Upset RASH achilles tendon rupture CHEST PAIN Achilles tendon rupture Cough CHEST PAIN CHEST PAIN CHEST PAIN GOUT Nausea, vomiting Causes increased anxiety STOMACH UPSET STOMACH UPSET Hives, difficulty breathing Anaphylaxis Chest Pain, SOB Chest Pain ONSET Today 16:23 Lauro,Paula Miller 68 F 1950 [place] [address] CT Scan Report Signed Patient: Paula Restrepo KMR#: [id number] : 1950Acct:[id number] Age/Sex: 68 / FDate of Service: 06/21/18 Loc: ED Accession Number: [id number] Procedure: CT angio head and neck Ordering Provider: Angelica Garner D.O. PROCEDURE: CT ANGIO HEAD AND NECK INDICATIONS: cva TECHNIQUE: Pre-contrast 4.5 mm thick sections acquired from the foramen magnum to the vertex. After the administration of intravenous contrast, 1 mm thick sections acquired from the aortic arch through the [place] of [place]. Post-contrast 4.5 mm thick sections then re- acquired from the foramen magnum to the vertex. 3-dimensional ujmeikp-zsgjjahau-vunljukpxt (MIP) and/or volume rendering reformats were acquired of the central intracranial vasculature and neck separately. COMPARISON: [facility], MR, ANGIO HEAD WITHOUT CONTRAST, 05/23/2017, 15:25. FINDINGS: Image quality: Excellent. BRAIN: CSF spaces: Ventricles are normal in size and shape. Basal cisterns are patent. No extra-axial fluid collections. Brain: No midline shift. No intracranial bleeds or masses. Muse-white matter interface appears intact. Skull and face: Calvarium and facial bones appear intact, without suspicious lesions. Orbits appear normal. Sinuses: Sinuses and mastoids are clear. HEAD CT ANGIOGRAPHY: Anterior circulation: Intracranial internal carotid arteries are normal in flow. High-grade stenosis is noted in the supraclinoid segment of the right internal carotid artery which is not simply changed compared to prior MRA. Moderate atherosclerotic stenosis noted in the supraclinoid segment of the left internal carotid artery which is not significantly changed compared to prior examination. Multifocal moderate stenoses noted in the M1 segments of the middle cerebral arteries bilaterally. High- grade stenosis noted in the origin of the right anterior cerebral artery. There is diminished flow within the right anterior middle cerebral arteries likely related to high- grade supraclinoid right internal carotid artery stenosis. Moderate stenosis of the origin of the left anterior cerebral artery. No aneurysms are seen. Posterior circulation: Visualized portions of the vertebral arteries demonstrate normal caliber, and join to form a normal appearing basilar artery. Flow within the posterior cerebral arteries is normal and symmetric. No aneurysms are seen. NECK CT ANGIOGRAPHY: Carotid system: The great vessels demonstrate a conventional anatomy as they ar ise from the aortic arch. The origins of the common carotid arteries appear patent. The common carotid arteries demonstrate normal caliber and courses. Calcified and noncalcified atherosclerotic plaque noted in the origin and proximal internal carotid arteries bilaterally which causes less than 50% stenosis of the vessels. Posterior circulation: The origins of the vertebral arteries both appear widely patent. The more superior extracranial portions of both vertebral arteries also demo nstrate normal courses and calibers. They join to form a normal appearing basilar artery. Soft tissues: Visualized neck soft tissues demonstrate no suspicious abnormalities. Bones: No suspicious bony lesions. Visualized cervical spine appears normally aligned. IMPRESSION: 1. No acute intracranial disease process. 2. High-grade stenosis involving the supraclinoid segment of the right internal carotid artery stable compared to 05/23/2017. 3. Moderate stenosis involving the supraclinoid segment of the left internal carotid artery stable compared to 05/23/2017. 4. Moderate multifocal stenoses involving the M1 segments of the middle cerebral arteries bilaterally. 5. High-grade stenosis involving the origin of the right anterior cerebral artery. 6. Diminished flow in the right anterior and middle cerebral arteries secondary to high-grade right internal carotid artery stenosis as well as high-grade stenosis of the origin of the right anterior cerebral artery and moderate multifocal stenoses involving the right middle cerebral artery. 7. The vertebral arteries are fully patent. Any quantitative measurements of stenosis were performed using NASCET criteria. Dictated by: Radha Brock MD, PhD on 06/21/2018 at 17:16 Approved by: Radha Brock MD, PhD on 06/21/2018 at 17:26 ECG Data Attestation: I personally reviewed and interpreted this ECG as follows: Interpretation: Sinus bradycardia with 1st degree AV block. Rate of 46 LA interval at 2:13 a.m. QRS of 104 and QTC of 425. No ST elevation patient has 2 of inversion in 1 and aVL MDM Narrative Medical decision making narrative: I discussed with patient she still has a little bit decreased overnight cashier although she is able her hands on her NIH equally out. Patient also states she has a little bit of difficulty with her vision but she is able to read and visualized without issue. Patient an 80-1 for a partial hemianopsia. Patient and I discussed tPA with her rapidly improving symptoms which she states her vision and the weakness in her hand or continuing to improve tPA is deferred. She has an 81 mg aspirin today, 243 mg additional ordered. patient's head CT is negative, CTA shows multiple areas of stenosis some of which are high grade. Patient states she was told there was nothing to do. She has prior imaging for comparison which shows similar areas. I did speak with Neurology at [facility] and reviewed patient's CTA images had been pushed for them to review as well. They do recommend changing her medications to a dual anti-platelet therapy 325 mg along with Plavix 75 mg. They do not wish the patient to be loaded with Plavix. They recommend this for 3 months and then to stop aspirin and patient to continue Plavix 75 mg only. They also recommend increasing increased since patient's statin from 40 mg to 80 mg of atorvastatin. They do not recommend any intervention at this time. Spoke with Estuardo CHAN, who accepts. BP has been appropriate in the department. asa 243 given as patient had 81mg at home and plavix 75mg given. Discharge Plan Departure Clinical Impression: Acute CVA (cerebrovascular accident) Prescriptions: No Action levothyroxine [Synthroid] 75 mcg tablet 75 mcg PO DAILY RF: 0 allopurinol 100 mg tablet 100 mg PO DAILY RF: 0 atorvastatin 40 mg tablet 40 mg PO DAILY RF: 0 magnesium 200 mg tablet 100 mg PO DAILY RF: 0 temazepam 7.5 mg capsule 7.5 mg PO BEDTIME PRNRF: 0 methylprednisolone [Medrol (Joce)] 4 mg tablets,dose pack See Rx Instructions PO PER PKG DIR Qty: 21 RF: 1 furosemide [Lasix] 40 mg Tablet 40 mg PO DAILY PRN (Reason: Edema) RF: 0 levothyroxine [Synthroid] 75 mcg Tablet 75 mcg PO DAILY RF: 0 diazepam [Valium] 10 mg Tablet 10 mg PO PRN PRN (Reason: medical procedures) RF: 0 loratadine [Claritin] 10 mg Tablet 10 mg PO DAILY PRN (Reason: seasonal allergies) RF: 0 escitalopram oxalate [Lexapro] 10 mg Tablet 10 mg PO BEDTIME RF: 0 aspirin 81 mg Tablet,Delayed Release (Dr/Ec) 81 mg PO DAILY RF: 0 naproxen sodium [Aleve] 220 mg Capsule 2 tab PO DAILY PRN (Reason: pain) RF: 0 losartan 25 mg Tablet 25 mg PO BEDTIME RF: 0 fluticasone [Flonase Allergy Relief] 50 mcg/actuation [place],Suspension 1 spr/day Intranasal DAILY PRN (Reason: Allergic Symptoms) RF: 0 hydrocodone-acetaminophen 5-325 mg Tablet See Rx Instructions .ROUTE .COMPLEX PRN (Reason: Pain, Severe (7-10)) Qty: 50 RF: 0 hydroxyzine pamoate 25 mg Capsule 25 mg PO Q4HR PRN (Reason: Nausea And Vomiting) Qty: 20 RF: 0 ondansetron HCl [Zofran] 4 mg tablet 4 mg PO .qh6 PRN (Reason: nausea and vomiting) Qty: 20 RF: 0 hydrocodone-acetaminophen [[place]] 5-325 mg tablet 1 tab PO Q4-6H PRN (Reason: pain) Qty: 50 RF: 0 Referrals: Priti Hightower MD [Primary Care Provider] -
[2018-06-21] MEDS: ASPIRIN 81 MG TAB 243 MG PO (17:31)
[2018-06-21 17:50] LABS: Add Manual Diff / Slide Review NO; Basophils Absolute Auto 0 /uL (0-100); Basophils Percent Auto 0.4 % (0-2); Eosinophils Absolute Auto 100 /uL (0-450); Eosinophils Percent Auto 1.4 % (2-4); Hemoglobin 14.7 g/dL (12.0-16.0); Lymphocytes Absolute Auto 1500 /uL (1100-4500); Lymphocytes Percent Auto 13.8 % (25-40); Mean Corpuscular HGB Conc 32.7 % (30-36); Mean Corpuscular Hemoglobin 28.9 PG (26-34); Mean Corpuscular Volume 88.2 fL (80-100); Monocytes Absolute Auto 500 /uL (0-900); Neutrophils Absolute Auto 8600 /uL (1500-7000); Neutrophils Percent Auto 79.4 % (50-75); Platelet Count 366 X10^3/uL (150-400); Prothrombin Time 11.7 SECONDS (10.1-12.7); Red Cell Distribution Width 13.8 % (11.6-14.8); White Blood Cell Count 10.9 X10^3/uL (4.5-11.0)
[2018-06-21 17:53] LABS: PTT Partial Thromboplastin Tim 25 SECONDS (26.4-36.2)
[2018-06-21 17:54] LABS: Alanine Aminotransferase 29 IU/L (9-52); Albumin 4.4 g/dL (3.5-5.0); Albumin Globulin Ratio 1.4 (1.0-2.8); Alkaline Phosphatase 89 U/L (38-126); Aspartate Aminotransferase 21 IU/L (14-36); BUN Creatinine Ratio 27.8 (6-22); Bilirubin Total 0.5 mg/dL (0.2-1.3); Blood Urea Nitrogen 25 mg/dL (7-17); Calcium 9.7 mg/dL (8.4-10.2); Carbon Dioxide 31 mmol/L (22-32); Chloride 96 mmol/L (98-107); Estimated Glomerular Filt Rate > 60.0 mL/min (>60); Globulin 3.2 g/dL (1.7-4.1); Glucose 113 mg/dL (80-110); HEMOLYSIS 18 (0-50); Potassium 3.9 mmol/L (3.4-5.1); Sodium 138 mmol/L (137-145); Total Protein 7.6 g/dL (6.3-8.2)
[2018-06-21 18:06] LABS: Troponin I < 0.012 ng/mL (0.01-0.034)
[2018-06-21] MEDS: CLOPIDOGREL 75 MG TABLET PO (19:14)
[2018-06-21] MEDS: ATORVASTATIN 20 MG TABLET 80 MG PO (19:24)
--- NOTE | 2018-06-21 22:20 | PC.NURSE ---
2104: Pt A&OX3. 96%RA. cont pulse ox. cpap at bedside. no n/v. pt denied pain. L. side weakness but no drift. SBA to the BR with cane. tele monitor. oriented patient to the room. call light in reach. IVF infusing.
[2018-06-21] MEDS: ENOXAPARIN 40 MG/0.4 ML SYRINGE SUBCUT (22:34)
[2018-06-22] VITALS (12 sets, daily range): BP systolic 125–161; BP diastolic 41–76; PULSE 49–60; RESP 12–18; TEMP 36.5–36.9; O2SAT 93–97
--- NOTE | 2018-06-22 | DI.MRI.S_ITS ---
PROCEDURE: MR HEAD/BRAIN WO CON INDICATIONS: TIA TECHNIQUE: Non-contrast axial T1 spin echo, axial T2 fast spin echo, sagittal and axial FLAIR, coronal T2 fast spin echo, axial gradient echo, axial diffusion and ADC through the brain. COMPARISON: [facility], MR, BRAIN WITHOUT CONTRAST, 05/23/2017, 15:44. FINDINGS: Image quality: Excellent. CSF spaces: Ventricles appear symmetric in size and shape. Basal cisterns are patent. No extra-axial fluid collections. Brain: No intracranial bleeds or mass effects. There is cerebral volume loss for age. There are periventricular and deep white matter chronic small vessel ischemic changes. Brainstem appears normal. Diffusion-weighted images show no acute ischemic insults. No chronic ischemic insults. Normal intravascular flow voids are present. Skull and face: Calvarial bone marrow is normal in signal. Orbits are normal. Sinuses: Sinuses and mastoids are clear. IMPRESSION: No evidence of acute ischemia. Unremarkable unenhanced examination. Dictated by: Teto Alfaro M.D. on 06/23/2018 at 12:51 Approved by: Teto Alfaro M.D. on 06/23/2018 at 12:58
--- NOTE | 2018-06-22 | DI.ECHO.S_ITS ---
[facility]---------+ [facility] +---------+ : : [address] : : : : [id number] : : : : Phone: [phone]+ Echocardiogram Report + + :Name: DINA MARTÍNEZ Study Date: 06/22/2018 Height: 60 in : :[facility] Weight: 225 lb: : Gender: Female BSA: 2.0 m2 : :: 1950 Age: 68 yrs : :Reason For Study: TIA : : Performed By: Alexa Garrison : :Referring: AKANKSHA DUFFY : + + Interpretation Summary A two-dimensional transthoracic echocardiogram with color flow and Doppler was performed in limited views only to assess for an interatrial shunt in a TIA patient. Injection of contrast documented no interatrial shunt. For other details, refer to echocardiogram done on June 20, 2018. Procedure: A two-dimensional transthoracic echocardiogram with color flow and Doppler was performed in limited views only to assess for an interatrial shunt in a TIA patient. The study quality was technically adequate. Comparison is made with the echocardiogram of 06/20/2018. A saline contrast injection was performed to assess for cardiac shunting. The heart rate ranged between 55-60 bpm during the study. The patient was in normal sinus rhythm during the exam. Left Ventricle: There is no thrombus. The ejection fraction is estimated to be 65-70%. Atria: Injection of contrast documented no interatrial shunt. Reading Physician:JANUARY
--- NOTE | 2018-06-22 01:28 | PM.HP.1 ---
History of Present Illness Date Patient Seen: 06/21/18 Time Patient Seen: 20:00 Chief complaint: TIA Symptoms Narrative: Paula Grubbs this 60-year-old female patient with a history significant for carotid artery stenosis, prior TIAs, atypical chest pain, CHF, cardiac murmur, gout, hyperlipidemia, hypothyroidism, migraines and obstructive sleep apnea who presents to the ER with complaints of a sudden onset of aphasia and left-sided weakness, numbness and tingling. 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 Patient states her blood pressure had normalized and she was discharged today at 12:30 p.m.. At 1:30 a.m. she began experiencing difficulty speaking with aphasia, visual scotoma with what she describes as tunnel vision and loss of her right visual field, left-sided weakness numbness and tingling. By the time the patient presented to the ER her symptoms were beginning to clear. Onset of the patient's symptoms while she was making lunch for . She had no prodromal symptoms has had no headaches and denies fevers or chills head congestion or sore throat. She denies developing chest pain or shortness of breath. She has no cough but did feel nauseous without vomiting. She does have a history of IBS and reports chronic will level abdominal pain that will wax and wane with a her IBS symptoms. She has had no recent constipation or diarrhea reports no difficulty urinating. At the time of evaluation the patient has mild persistent alteration in sensation in the left hand vision has returned to normal and cranial nerves are intact without deficit. Patient arrived in the ER at 4:23 p.m. at which time she was afebrile at 97.6 heart rate of 51, blood pressure of 131/39, respiratory rate of 20 and oxygenation at 90%. She had a CT of the head completed which showed no acute intracranial processes followed by a CT a which demonstrates diminished flowed in the right anterior cerebral artery and middle cerebral artery related to high-grade stenosis involving the origin of the right anterior cerebral artery and multifocal moderate stenosis of the M1 segments of both middle cerebral arteries. On laboratory analysis the patient is found have an unremarkable CBC and electrolytes within normal limits. Her BUN is 25 and creatinine is 0.9 with an EGFR 60 and BUN creatinine ratio of 27.81. Her PT is 11.7 with an INR of 1.0 with a PTT of 25. Her troponin is negative at 0.012. Tele neurology is consulted. Patient is not appropriate for tPA. The patient is admitted for TIA. Patient History Medical History Achilles tendon injury (Acute) Anxiety (Acute) Arthritis (Acute) Atypical chest pain (Acute) CHF (congestive heart failure) (Acute) Carotid artery stenosis (Acute) Chronic back pain (Acute) Chronic neck pain (Acute) Eczema (Acute) Edema extremities (Acute) Fatty liver disease, nonalcoholic (Acute) Fibromyalgia (Acute) Fusion of lumbar spine (Acute) Gout (Acute) HTN (hypertension) (Acute) Heart murmur (Acute) Hyperlipidemia (Acute) Hypothyroid (Acute) IBS (irritable bowel syndrome) (Acute) Kidney stones (Acute) LVH (left ventricular hypertrophy) (Acute) Lipoma (Acute) Migraines (Acute) Mosquito bite (Acute) Perforated ear drum (Acute) Seasonal allergies (Acute) Sleep apnea with use of continuous positive airway pressure (CPAP) (Acute) TIA (transient ischemic attack) (Acute) Venous insufficiency (Acute) Surgical History History of ankle surgery (Acute) History of bilateral cataract extraction (Acute) History of bladder repair surgery (Acute) History of carpal tunnel release (Acute) History of partial hysterectomy (Acute) Hx of BSO (bilateral salpingo-oophorectomy) (Acute) Hx of abdominoplasty (Acute) Hx of bilateral breast reduction surgery (Acute) Hx of vitrectomy (Acute) Social History household members: spouse Smoking Status: Never smoker alcohol intake: never Family & Social History Family History Father Medical history unknown Mother Cancer Cardiovascular disease Lymphoma Brother Diabetes mellitus Daughter Lupus Multiple sclerosis Social History: household members spouse Prior Living Arrangements House Safety & Behavioral: Feels Safe in Current Yes Environment Been Physically Hurt or No Threatened By a Person Suicidal Ideation Description None Suicide Plan Description No Plan Tobacco & Substance use: Smoking Status Never smoker alcohol intake never Substance Use Type does not use Comment: The patient lives in a single family home with her to whom she has been for 47 years. She has never know her father and her mother had uterine and ovarian cancer as well as lymphoma and cardiovascular disease. She had 2 brothers with diabetes. 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 Smoking: Never smoker Alcohol: The patient does not drink alcohol Substance use: No recreational pharmaceuticals, herbal supplements or cannabis products Advanced directives: Patient wishes to be a full code Meds Home Medications Medication Instructions Recorded Confirmed Type aspirin 81 mg PO DAILY 10/15/17 06/21/18 History diazepam [Valium] 10 mg PO PRN PRN 10/15/17 06/21/18 History escitalopram oxalate [Lexapro] 10 mg PO BEDTIME 10/15/17 06/21/18 History furosemide [Lasix] 40 mg PO DAILY PRN 10/15/17 06/21/18 History loratadine [Claritin] 10 mg PO DAILY PRN 10/15/17 06/21/18 History losartan 25 mg PO BEDTIME 10/15/17 06/21/18 History naproxen sodium [Aleve] 2 tab PO DAILY PRN 10/15/17 06/21/18 History fluticasone [Flonase Allergy 1 spr/day INTRANASAL DAILY PRN 10/29/17 06/21/18 History Relief] hydrocodone-acetaminophen See Rx Instructions .ROUTE 11/01/17 06/21/18 Rx .COMPLEX PRN #50 tab hydrocodone-acetaminophen [Sun] 1 tab PO Q4-6H PRN #50 tab 11/01/17 06/21/18 Rx hydroxyzine pamoate 25 mg PO Q4HR PRN #20 cap 11/01/17 06/21/18 Rx ondansetron HCl [Zofran] 4 mg PO .qh6 PRN #20 tab 11/01/17 06/21/18 Rx allopurinol 100 mg tablet 100 mg PO DAILY 04/04/18 06/21/18 History atorvastatin 40 mg tablet 40 mg PO DAILY 04/04/18 06/21/18 History levothyroxine 75 mcg tablet 75 mcg PO DAILY 04/04/18 06/21/18 History magnesium 200 mg tablet 100 mg PO DAILY tab 04/04/18 06/21/18 History methylprednisolone 4 mg tablets in See Rx Instructions PO PER PKG DIR 04/04/18 06/21/18 Rx a dose pack #21 each Allergies Allergy/AdvReac Type Severity Reaction Status Date / Time pregabalin Allergy Severe Swelling Verified 10/15/17 13:13 all over body tetracycline Allergy Intermediate HIVES Verified 10/29/17 10:01 adhesive tape Allergy Mild Rash with Verified 10/15/17 13:16 prolonged use, (electrodes) chocolate flavor Allergy Mild Rash, Verified 10/15/17 13:13 Gastrointestinal Upset, migraines [facility] [employer] Allergy Mild Rash, Verified 10/15/17 13:13 Gastrointestinal Upset latex [LATEX] Allergy Mild RASH Verified 10/29/17 10:01 ciprofloxacin AdvReac Severe achilles Verified 10/15/17 13:13 tendon rupture guaifenesin [From ENTEX LA] AdvReac Severe CHEST PAIN Verified 10/29/17 10:01 levofloxacin AdvReac Severe Achilles Verified 10/29/17 10:01 tendon rupture lisinopril AdvReac Severe Cough Verified 10/15/17 13:13 phenylephrine AdvReac Severe CHEST PAIN Verified 10/29/17 10:01 phenylpropanolamine AdvReac Severe CHEST PAIN Verified 10/29/17 10:01 [From ENTEX LA] pseudoephedrine AdvReac Severe CHEST PAIN Verified 10/29/17 10:01 [From SUDAFED] shellfish derived AdvReac Severe GOUT Verified 10/15/17 13:16 codeine AdvReac Intermediate Nausea, Verified 10/29/17 10:01 vomiting duloxetine AdvReac Mild Causes Verified 10/15/17 13:13 increased anxiety hydromorphone AdvReac Mild STOMACH Verified 10/29/17 10:01 UPSET morphine AdvReac Mild STOMACH Verified 10/29/17 10:01 UPSET IV CONTRAST Allergy Severe Hives, Uncoded 10/15/17 13:13 difficulty breathing [id number] Allergy Severe Anaphylaxis Uncoded 10/15/17 13:00 phenylephrine-guaifenesin AdvReac Severe Chest Uncoded 10/15/17 13:13 Pain, SOB phenylpropanolamine AdvReac Severe Chest Pain Uncoded 10/15/17 13:13 Review of Systems Review of Systems All systems reviewed & are unremarkable except as noted in HPI and below Exam Vital Signs (past 8 hours): - 06/21/18 17:30 06/21/18 18:00 06/21/18 18:30 Temperature Pulse Rate 51 L 53 L 51 L Respiratory Rate 16 15 13 Blood Pressure Blood Pressure [Left Arm] 129/47 L 127/39 L 117/57 L Pulse Oximetry 96 98 95 06/21/18 19:00 06/21/18 19:30 06/21/18 20:00 Temperature Pulse Rate 54 L 58 L 58 L Respiratory Rate 15 16 15 Blood Pressure Blood Pressure [Left Arm] 124/38 L 123/75 141/57 H Pulse Oximetry 94 96 96 06/21/18 20:30 06/21/18 21:05 06/21/18 21:14 Temperature Pulse Rate 52 L 56 L Respiratory Rate 12 14 Blood Pressure 142/56 H Blood Pressure [Left Arm] 142/56 H Pulse Oximetry 97 96 96 06/21/18 21:40 Temperature 97.2 F L Pulse Rate 55 L Respiratory Rate 18 Blood Pressure 130/72 Blood Pressure [Left Arm] Pulse Oximetry 95 Oxygen Delivery Method Room Air Narrative Exam Narrative: GENERAL APPEARANCE: well developed, obese female with a BMI of 45.6 who is afebrile and in no acute distress. HEAD: Normocephalic, atraumatic, no scalp lesions. EYES: pupils equal, round, reactive to light and accommodation, sclera non-icteric, extraocular movement intact without nystagmus . EARS: normal external structures, no ear pain NOSE: sinuses non tender to percussion, no rhinorrhea ORAL CAVITY: mucosa moist without lesions or exudate, palate normal, tongue in midline. THROAT: normal, no erythema, no exudate, pharynx normal, uvula midline. NECK/THYROID: neck supple, no jugular venous distention, no carotid bruit, no thyromegaly, trachea midline. LYMPH NODES: no cervical or supraclavicular lymphadenopathy. SKIN: warm and dry, no suspicious lesions, no rashes, good turgor. HEART: regular rate and rhythm, S1-S2 with 2/6 systolic murmur, without rubs rubs or gallops, brisk capillary refill, trace edema LUNGS: Breath sounds with faint crackles in the right base, no coarseness or wheezing, no cough present CHEST: Symmetrical movement, no retractions or accessory muscle use. ABDOMEN: Soft, obese, generalized mild abdominal tenderness on palpation without guarding or peritoneal signs, no organomegaly, no flank or suprapubic tenderness BACK: Normal curvature, nontender to palpation EXTREMITIES: moves all extremities, strength is 5/5 and symmetrical, well perfused, +1 dorsalis pedis pulses, trace edema. NEUROLOGIC: AAO x4, cranial nerves II-XII grossly intact, motor strength normal upper and lower extremities, no pronator drift no drift with lower extremities picker operator are equal except for inability to form a complete grasped with left hand with decreased movement of the 1st finger, slight tingling still present in the left digits, bilateral lower extremity neuropathy to the mid leg, hearing grossly normal to speech. PSYCH: alert, cognitive function intact, good eye contact, stable mood with congruent affect Objective Labs Result Diagrams: 06/21/18 17:30 06/21/18 17:30 Labs: Laboratory Results - last 24 hr 06/21/18 06/21/18 06/21/18 17:30 17:30 17:30 WBC 10.9 RBC 5.10 Hgb 14.7 Hct 45.0 MCV 88.2 MCH 28.9 MCHC 32.7 RDW 13.8 Plt Count 366 Neut % (Auto) 79.4 H Lymph % (Auto) 13.8 L [place] % (Auto) 5.0 Eos % (Auto) 1.4 L Baso % (Auto) 0.4 Neut # (Auto) 8600 H Lymph # (Auto) 1500 [place] # (Auto) 500 Eos # (Auto) 100 Baso # (Auto) 0 PT 11.7 INR 1.0 APTT 25 L Sodium 138 Potassium 3.9 Chloride 96 L Carbon Dioxide 31 BUN 25 H Creatinine 0.90 Estimated GFR > 60.0 BUN/Creatinine Ratio 27.8 H Glucose 113 H Calcium 9.7 Total Bilirubin 0.5 AST 21 ALT 29 Alkaline Phosphatase 89 Troponin I < 0.012 Total Protein 7.6 Albumin 4.4 Globulin 3.2 Albumin/Globulin Ratio 1.4 Assessment & Plan Assessment & Plan narrative: 1. Transitory ischemic attack, acute -patient with prior TIAs and has been under the care of neurology -known history of internal carotid stenosis identified on CT a with diminished flow in the right anterior cerebral artery and middle cerebral arteries related to multiple stenoses as outlined on the CTA report. -patient with pre-existing motor deficit left 1st finger prior to today's events. Slight tingling remains in left fingers. All other neurological symptoms have resolved -NIH score is 1 -will obtain an echocardiogram and will obtain MR stroke -patient will be on dual anti-platelet therapy with aspirin and Plavix -atorvastatin is increased to 80 mg daily. 2. Hypertension, chronic -patient discharged 12 30 today following hospitalization at [facility] for hypertensive urgency. -1 hr following being home patient developed symptoms and upon arrival blood pressure was 131/39 -symptoms more consistent with a flow deficit related to low mean arterial pressure resolving once pressures normalized -will continue losartan 25 mg daily 3. Congestive heart failure, chronic -patient with history of CHF with faint basilar crackles on the right, no dyspnea, no chest pain, no shortness of breath -will continue Lasix 40 mg daily 4. Hyperlipidemia, chronic -patient with cerebrovascular disease, atorvastatin is increased 80 mg daily The patient is admitted to the hospital due to the severity of symptoms and the high risk complications. Patient is admitted observation status with expected length of stay less than 2 midnights. Time Spent With Patient Time with patient: 25 - 35 minutes Scores GCS Aidan coma scale eye opening: Spontaneous Aidan coma scale verbal response: Orientated [place] coma scale motor response: Obey commands [place] coma scale total score: 15 ABCD2 Age >= 60 years: yes Initial BP. Either SBP >= 140 or DBP >= 90.: no Clinical features of the TIA: other symptoms Duration of symptoms: >= 60 minutes History of diabetes: no ABCD2 Score: 3 NIHSS Level of Conciousness: Alert, keenly responsive Ask month/age: Answers both questions correctly. Open/close eyes, close hand: Performs both tasks correctly Best gaze horizontal: Normal Visual hall: No visual loss Facial palsy: Normal symetrical movement Left arm drift: No drift for full 10 sec Right arm drift: No drift for full 10 sec Left leg drift: No drift for full 10 sec Right leg drift: No drift for full 10 sec Limb ataxia: Absent Sensory on face/arms/legs: Mild to moderate sensory loss, can tell touch (Residual tingling left hand) Best language: No aphasia, normal Dysarthria: Normal Extinction or inattention: No abnormality Total NIH Stroke scale score: 1
--- NOTE | 2018-06-22 03:44 | PC.NURSE ---
0330 Assisted pt. to the BR. did well. Denies any dizziness & bilateral extremities weakness, gait steady. Voided 225 cc + 1 she missed the hat of dark yellow urine. Urine specimen collected & sent to the lab. Will cont. POC & monitor, denies any CP or CASTRO.
[2018-06-22 04:17] LABS: RBC Urine None Seen (0-5/HPF)
[2018-06-22] MEDS: SODIUM CHLORIDE 0.9% 1,000 ML 150 ML IV (04:18)
[2018-06-22 04:29] LABS: Appearance Urine UA CLEAR; Bilirubin Urine UA NEGATIVE (NEGATIVE); Color Urine UA YELLOW; Glucose Urine UA NEGATIVE (Negative); Ketones Urine UA NEGATIVE (NEGATIVE); Leukocyte Esterase Urine UA 1+ (NEGATIVE); Nitrite Urine UA NEGATIVE (Negative); Occult Blood Urine UA NEGATIVE (Negative); Protein Urine UA NEGATIVE (Negative); Urobilinogen Urine UA 0.2 E.U./dL (0.2); pH Urine UA 5.5 (4.5-8.0)
[2018-06-22 05:13] LABS: Bacteria Urine Few (2-10); Culture Indicated Urine Specimen Cultured; WBC Urine 5-10/HPF (0-5/HPF)
[2018-06-22] MEDS: PANTOPRAZOLE 20 MG TABLET PO (05:42)
[2018-06-22 06:26] LABS: Add Manual Diff / Slide Review NO; Basophils Absolute Auto 0 /uL (0-100); Basophils Percent Auto 0.3 % (0-2); Eosinophils Absolute Auto 300 /uL (0-450); Eosinophils Percent Auto 3.1 % (2-4); Hematocrit 40.4 % (36-46); Hemoglobin 13.6 g/dL (12.0-16.0); Lymphocytes Absolute Auto 2700 /uL (1100-4500); Lymphocytes Percent Auto 32.8 % (25-40); Mean Corpuscular HGB Conc 33.5 % (30-36); Mean Corpuscular Hemoglobin 29.5 PG (26-34); Monocytes Absolute Auto 700 /uL (0-900); Neutrophils Absolute Auto 4700 /uL (1500-7000); Neutrophils Percent Auto 55.8 % (50-75); Platelet Count 316 X10^3/uL (150-400); Red Cell Distribution Width 13.8 % (11.6-14.8); White Blood Cell Count 8.4 X10^3/uL (4.5-11.0)
[2018-06-22 06:34] LABS: Blood Urea Nitrogen 20 mg/dL (7-17); Calcium 9.2 mg/dL (8.4-10.2); Carbon Dioxide 30 mmol/L (22-32); Chloride 101 mmol/L (98-107); Cholesterol 229 mg/dL (140-199); Estimated Glomerular Filt Rate > 60.0 mL/min (>60); Glucose 105 mg/dL (80-110); HDL Cholesterol 32 mg/dL (40-60); HEMOLYSIS < 15 (0-50); LDL Cholesterol Calculated 162 mg/dL (<100); Magnesium 1.8 mg/dL (1.6-2.3); Potassium 3.2 mmol/L (3.4-5.1); Sodium 139 mmol/L (137-145); Triglycerides 175 mg/dL (35-150)
--- NOTE | 2018-06-22 07:50 | PM.PN.1 ---
Subjective Date Patient Seen: 06/22/18 Interval history: Paula Grubbs this 60-year-old female patient with a history significant for carotid artery stenosis, prior TIAs, atypical chest pain, CHF, cardiac murmur, gout, hyperlipidemia, hypothyroidism, migraines and obstructive sleep apnea who presented to the ED with complaints of a sudden onset of aphasia and left-sided weakness, numbness and tingling. The patient is resting in bedside chair comfortably. Her is at the bedside. Her symptoms have completely resolved. She reports she had a TIA in 2017. She was recently hospitalized at [facility] for symptomatic bradycardia. There is concern as she has high-grade stenosis of her right ALIZA and MCA and with symptomatic bradycardia potential that she dropped her blood pressure yesterday provoking TIA symptoms. discussed this with her medication coordinator in detail, and plan to have her transferred to [facility] for pacemaker placement to 06/23/2018. She denies headache, shortness of breath, chest pain, abdominal pain, nausea, vomiting, fever, chills, dysuria, diarrhea or constipation. He or she is voiding and eliminating without difficulty. She is up ambulating without assistance. Exam Vital Signs (past 8 hours): - 06/22/18 00:05 06/22/18 01:28 06/22/18 04:02 Temperature 98.3 F 97.7 F Pulse Rate 52 L 49 L Respiratory Rate 12 16 Blood Pressure 127/51 L 154/41 H Pulse Oximetry 97 93 94 06/22/18 04:08 Temperature Pulse Rate Respiratory Rate Blood Pressure Pulse Oximetry 94 Oxygen Delivery Method Room Air,CPAP Oxygen Flow Rate 0 Narrative Exam Narrative: General: Older female sitting in bedside chair and in no acute distress, appears older than stated age, well-developed, well-nourished, appropriately interactive. HEENT: Normocephalic, atraumatic. External ears without defect. Pupils equal, round, and reactive to light and accommodation. Anicteric sclerae, moist conjunctivae, and no lid lag. Neck: Supple with full range of motion. No jugular venous distension. No bruits. No lymphadenopathy or thyromegaly. Cardiovascular: Regular rate and rhythm without murmurs, rubs, or gallops appreciated Pulmonary: Clear to auscultation bilaterally without crackles, wheezes, or rhonchi. Normal respiratory effort with no use of accessory muscles. Abdomen: Soft, obese, bowel sounds present, nontender, nondistended. No hepatosplenomegaly or masses appreciated. Extremities: No clubbing, cyanosis, or edema. Skin: Normal temperature, turgor, and texture; no rash, ulcers, or subcutaneous nodules appreciated. Neurological: Cranial nerves grossly intact. Normal muscle strength, tone, and bulk. Reflexes, coordination, and sensory function within normal limits. No facial droop. No known gait impairment. Psychiatric: Normal mood and affect. Alert and oriented to person, place, and time. Objective Labs Result Diagrams: 06/22/18 05:58 06/22/18 05:58 Labs: Laboratory Results - last 24 hr 06/21/18 06/21/18 06/21/18 17:30 17:30 17:30 WBC 10.9 RBC 5.10 Hgb 14.7 Hct 45.0 MCV 88.2 MCH 28.9 MCHC 32.7 RDW 13.8 Plt Count 366 Neut % (Auto) 79.4 H Lymph % (Auto) 13.8 L [place] % (Auto) 5.0 Eos % (Auto) 1.4 L Baso % (Auto) 0.4 Neut # (Auto) 8600 H Lymph # (Auto) 1500 [place] # (Auto) 500 Eos # (Auto) 100 Baso # (Auto) 0 PT 11.7 INR 1.0 APTT 25 L Sodium 138 Potassium 3.9 Chloride 96 L Carbon Dioxide 31 BUN 25 H Creatinine 0.90 Estimated GFR > 60.0 BUN/Creatinine Ratio 27.8 H Glucose 113 H Calcium 9.7 Magnesium Total Bilirubin 0.5 AST 21 ALT 29 Alkaline Phosphatase 89 Troponin I < 0.012 Total Protein 7.6 Albumin 4.4 Globulin 3.2 Albumin/Globulin Ratio 1.4 Triglycerides Cholesterol LDL Cholesterol, Calc HDL Cholesterol Urine Color Urine Appearance Urine pH Ur Specific [place] Urine Protein Urine Glucose (UA) Urine Ketones Urine Occult Blood Urine Nitrate Urine Bilirubin Urine Urobilinogen Ur Leukocyte Esterase Urine RBC Urine WBC Urine Bacteria Ur Culture Indicated? 06/22/18 06/22/18 06/22/18 03:30 05:58 05:58 WBC 8.4 RBC 4.60 Hgb 13.6 Hct 40.4 MCV 88.0 MCH 29.5 MCHC 33.5 RDW 13.8 Plt Count 316 Neut % (Auto) 55.8 D Lymph % (Auto) 32.8 [place] % (Auto) 8.0 Eos % (Auto) 3.1 Baso % (Auto) 0.3 Neut # (Auto) 4700 Lymph # (Auto) 2700 [place] # (Auto) 700 Eos # (Auto) 300 Baso # (Auto) 0 PT INR APTT Sodium 139 Potassium 3.2 L Chloride 101 Carbon Dioxide 30 BUN 20 H Creatinine 0.80 Estimated GFR > 60.0 BUN/Creatinine Ratio 25.0 H Glucose 105 Calcium 9.2 Magnesium 1.8 Total Bilirubin AST ALT Alkaline Phosphatase Troponin I Total Protein Albumin Globulin Albumin/Globulin Ratio Triglycerides 175 H Cholesterol 229 H LDL Cholesterol, Calc 162 H HDL Cholesterol 32 L Urine Color Yellow Urine Appearance Clear Urine pH 5.5 Ur Specific [place] 1.020 Urine Protein Negative Urine Glucose (UA) Negative Urine Ketones Negative Urine Occult Blood Negative Urine Nitrate Negative Urine Bilirubin Negative Urine Urobilinogen 0.2 Ur Leukocyte Esterase 1+ H Urine RBC None seen Urine WBC 5-10/hpf H Urine Bacteria Few (2-10) H Ur Culture Indicated? Specimen cultured Assessment & Plan Assessment & Plan narrative: Paula Grubbs this 60-year-old female patient with a history significant for carotid artery stenosis, prior TIAs, atypical chest pain, CHF, cardiac murmur, gout, hyperlipidemia, hypothyroidism, migraines and obstructive sleep apnea who presented to the ED with complaints of a sudden onset of aphasia and left-sided weakness, numbness and tingling. 1. Acute TIA, present on admission. Active. -Patient with prior TIAs and has been under the care of neurology. -Known history of internal carotid stenosis identified on CT a with diminished flow in the right anterior cerebral artery and middle cerebral arteries related to multiple stenoses as outlined on the CTA report. -NIH score is 1. -Limited echocardiogram unchanged With no evidence of intra-atrial shunt. -CTA brain demonstrated high-grade stenosis involving supraclinoid segment of bilateral ICA, moderate multifocal stenosis of M1 segments of MCA bilaterally and high-grade stenosis of right ALIZA with diminished flow. -Continue dual anti-platelet therapy with aspirin and Plavix and increased atorvastatin from 40 mg to 80 mg daily. 2. Hypertension, chronic, present on admission. Stable. -Patient discharged from [facility] for hypertensive urgency /emergency and readmitted the same night With TIA symptoms.. -Upon arrival blood pressure was 131/39 and symptoms more consistent with a flow deficit related to low MAP resolving once pressures normalized. Concerned that patient is bradycardic and when she Kamlesh's down to low 40's dropping blood pressure and hypo perfusing brain where there are high-grade stenosis on right side. -Continue losartan 25 mg daily. 3. Chronic diastolic congestive heart failure, present on admission. Stable. -Does not represent CHF exacerbation. -Continue home Lasix 40 mg daily. 4. Hyperlipidemia, chronic -Patient with cerebrovascular disease, atorvastatin is increased 80 mg daily Disposition: Obtain MR stroke protocol tomorrow morning and transfer to [facility] for pacemaker placement on 06/24/2018.
--- NOTE | 2018-06-22 07:53 | P.PN_ITS ---
Subjective Date Patient Seen: 06/22/18 Interval history: Paula Grubbs this 60-year-old female patient with a history significant for carotid artery stenosis, prior TIAs, atypical chest pain, CHF, cardiac murmur, gout, hyperlipidemia, hypothyroidism, migraines and obstructive sleep apnea who presented to the ED with complaints of a sudden onset of aphasia and left-sided weakness, numbness and tingling. The patient is resting in bedside chair comfortably. Her is at the bedside. Her symptoms have completely resolved. She reports she had a TIA in 2017. She was recently hospitalized at [facility] for symptomatic bradycardia. There is concern as she has high-grade stenosis of her right ALIZA and MCA and with symptomatic bradycardia potential that she dropped her blood pressure yesterday provoking TIA symptoms. discussed this with her party chief in detail, and plan to have her transferred to [facility] for pacemaker placement to 06/23/2018. She denies headache, shortness of breath, chest pain, abdominal pain, nausea, vomiting, fever, chills, dysuria, diarrhea or constipation. He or she is voiding and eliminating without difficulty. She is up ambulating without assistance. Exam Vital Signs (past 8 hours): - 06/22/18 00:05 06/22/18 01:28 06/22/18 04:02 Temperature 98.3 F 97.7 F Pulse Rate 52 L 49 L Respiratory Rate 12 16 Blood Pressure 127/51 L 154/41 H Pulse Oximetry 97 93 94 06/22/18 04:08 Temperature Pulse Rate Respiratory Rate Blood Pressure Pulse Oximetry 94 Oxygen Delivery Method Room Air,CPAP Oxygen Flow Rate 0 Narrative Exam Narrative: General: Older female sitting in bedside chair and in no acute distress, appears older than stated age, well-developed, well-nourished, appropriately interactive. HEENT: Normocephalic, atraumatic. External ears without defect. Pupils equal, round, and reactive to light and accommodation. Anicteric sclerae, moist conjunctivae, and no lid lag. Neck: Supple with full range of motion. No jugular venous distension. No bruits. No lymphadenopathy or thyromegaly. Cardiovascular: Regular rate and rhythm without murmurs, rubs, or gallops appreciated Pulmonary: Clear to auscultation bilaterally without crackles, wheezes, or rhonchi. Normal respiratory effort with no use of accessory muscles. Abdomen: Soft, obese, bowel sounds present, nontender, nondistended. No hepa tosplenomegaly or masses appreciated. Extremities: No clubbing, cyanosis, or edema. Skin: Normal temperature, turgor, and texture; no rash, ulcers, or subcutaneous nodules appreciated. Neurological: Cranial nerves grossly intact. Normal muscle strength, tone, and bulk. Reflexes, coordination, and sensory function within normal limits. No facial droop. No known gait impairment. Psychiatric: Normal mood and affect. Alert and oriented to person, place, and time. Objective Labs Result Diagrams: 06/22/18 05:58 06/22/18 05:58 Labs: Laboratory Results - last 24 hr 06/21/18 06/21/18 06/21/18 17:30 17:30 17:30 WBC 10.9 RBC 5.10 Hgb 14.7 Hct 45.0 MCV 88.2 MCH 28.9 MCHC 32.7 RDW 13.8 Plt Count 366 Neut % (Auto) 79.4 H Lymph % (Auto) 13.8 L [place] % (Auto) 5.0 Eos % (Auto) 1.4 L Baso % (Auto) 0.4 Neut # (Auto) 8600 H Lymph # (Auto) 1500 [place] # (Auto) 500 Eos # (Auto) 100 Baso # (Auto) 0 PT 11.7 INR 1.0 APTT 25 L Sodium 138 Potassium 3.9 Chloride 96 L Carbon Dioxide 31 BUN 25 H Creatinine 0.90 Estimated GFR > 60.0 BUN/Creatinine Ratio 27.8 H Glucose 113 H Calcium 9.7 Magnesium Total Bilirubin 0.5 AST 21 ALT 29 Alkaline Phosphatase 89 Troponin I < 0.012 Total Protein 7.6 Albumin 4.4 Globulin 3.2 Albumin/Globulin Ratio 1.4 Triglycerides Cholesterol LDL Cholesterol, Calc HDL Cholesterol Urine Color Urine Appearance Urine pH Ur Specific [place] Urine Protein Urine Glucose (UA) Urine Ketones Urine Occult Blood Urine Nitrate Urine Bilirubin Urine Urobilinogen Ur Leukocyte Esterase Urine RBC Urine WBC Urine Bacteria Ur Culture Indicated? 06/22/18 06/22/18 06/22/18 03:30 05:58 05:58 WBC 8.4 RBC 4.60 Hgb 13.6 Hct 40.4 MCV 88.0 MCH 29.5 MCHC 33.5 RDW 13.8 Plt Count 316 Neut % (Auto) 55.8 D Lymph % (Auto) 32.8 [place] % (Auto) 8.0 Eos % (Auto) 3.1 Baso % (Auto) 0.3 Neut # (Auto) 4700 Lymph # (Auto) 2700 [place] # (Auto) 700 Eos # (Auto) 300 Baso # (Auto) 0 PT INR APTT Sodium 139 Potassium 3.2 L Chloride 101 Carbon Dioxide 30 BUN 20 H Creatinine 0.80 Estimated GFR > 60.0 BUN/Creatinine Ratio 25.0 H Glucose 105 Calcium 9.2 Magnesium 1.8 Total Bilirubin AST ALT Alkaline Phosphatase Troponin I Total Protein Albumin Globulin Albumin/Globulin Ratio Triglycerides 175 H Cholesterol 229 H LDL Cholesterol, Calc 162 H HDL Cholesterol 32 L Urine Color Yellow Urine Appearance Clear Urine pH 5.5 Ur Specific [place] 1.020 Urine Protein Negative Urine Glucose (UA) Negative Urine Ketones Negative Urine Occult Blood Negative Urine Nitrate Negative Urine Bilirubin Negative Urine Urobilinogen 0.2 Ur Leukocyte Esterase 1+ H Urine RBC None seen Urine WBC 5-10/hpf H Urine Bacteria Few (2-10) H Ur Culture Indicated? Specimen cultured Assessment & Plan Assessment & Plan narrative: Paula Grubbs this 60-year-old female patient with a history significant for carotid artery stenosis, prior TIAs, atypical chest pain, CHF, cardiac murmur, gout, hyperlipidemia, hypothyroidism, migraines and obstructive sleep apnea who presented to the ED with complaints of a sudden onset of aphasia and left-sided weakness, numbness and tingling. 1. Acute TIA, present on admission. Active. -Patient with prior TIAs and has been under the care of neurology. -Known history of internal carotid stenosis identified on CT a with diminished flow in the right anterior cerebral artery and middle cerebral arteries related to multiple stenoses as outlined on the CTA report. -NIH score is 1. -Limited echocardiogram unchanged With no evidence of intra-atrial shunt. -CTA brain demonstrated high-grade stenosis involving supraclinoid segment of bilateral ICA, moderate multifocal stenosis of M1 segments of MCA bilaterally and high-grade stenosis of right ALIZA with diminished flow. -Continue dual anti-platelet therapy with aspirin and Plavix and increased atorvastatin from 40 mg to 80 mg daily. 2. Hypertension, chronic, present on admission. Stable. -Patient discharged from [facility] for hypertensive urgency /emergency and readmitted the same night With TIA symptoms.. -Upon arrival blood pressure was 131/39 and symptoms more consistent with a flow deficit related to low MAP resolving once pressures normalized. Concerned that patient is bradycardic and when she Kamlesh's down to low 40's dropping blood pressure and hypo perfusing brain where there are high-grade stenosis on right side. -Continue losartan 25 mg daily. 3. Chronic diastolic congestive heart failure, present on admission. Stable. -Does not represent CHF exacerbation. -Continue home Lasix 40 mg daily. 4. Hyperlipidemia, chronic -Patient with cerebrovascular disease, atorvastatin is increased 80 mg daily Disposition: Obtain MR stroke protocol tomorrow morning and transfer to [facility] for pacemaker placement on 06/24/2018.
[2018-06-22] MEDS: LEVOTHYROXINE 75 MCG TABLET PO (08:26)
[2018-06-22] MEDS: ASPIRIN EC 81 MG TABLET PO (08:26)
[2018-06-22] MEDS: ENOXAPARIN 40 MG/0.4 ML SYRINGE SUBCUT (08:26)
[2018-06-22] MEDS: ATORVASTATIN 20 MG TABLET 80 MG PO (08:27)
--- NOTE | 2018-06-22 08:58 | CM.DANOTE ---
DCP: Case received, EMR reviewed and met with patient. Introduced self and role. DCP template completed with information currently available. Patient is a 68 year old female who admitted yesterday evening to the care of the hospitalist team. PCP: Dr. Hightower at [facility]. Payer: confirmed: Medicare/[employer] [place]. Patient came to hospital via ambulance due to concerns of TIA symptoms. Patient has history of carotid stenosis. She had some slurred speech at the time, and was having some difficulty with her left arm. Met with patient in her room, her daughter was present. Patient alert and oriented, no noted slurred speech during conversation. She resides in [place] with her , Major. She does use a cane, otherwise, is independent. Patient is under observation at this time. P: DCP to continue to follow. Patient should be able to return home when she is stable. She may be getting P.T. consult as well. Colette Espino RN/Neighborhood Worker
--- NOTE | 2018-06-22 11:12 | PC.NURSE ---
Patient without complaint today. Standby assist, with cane, tolerating well. Denies difficulty swallowing, tolerating meals. Denies weakness, numbness or tingling. Conversant and pleasant. ECHO completed at bedside. Call light within reach.
[2018-06-22] MEDS: SODIUM CHLORIDE 0.9% 1,000 ML 100 ML IV ×2 (12:04→21:10)
--- NOTE | 2018-06-22 12:59 | PT.IIE ---
Surgical History (Last Reviewed 06/22/18 @ 01:44 by ROCIO Cross) History of ankle surgery (Acute) History of bilateral cataract extraction (Acute) History of bladder repair surgery (Acute) History of carpal tunnel release (Acute) History of partial hysterectomy (Acute) Hx of BSO (bilateral salpingo-oophorectomy) (Acute) Hx of abdominoplasty (Acute) Hx of bilateral breast reduction surgery (Acute) Hx of vitrectomy (Acute) Medical History (Last Reviewed 06/22/18 @ 01:44 by ROCIO Cross) Achilles tendon injury (Acute) Anxiety (Acute) Arthritis (Acute) Atypical chest pain (Acute) CHF (congestive heart failure) (Acute) Carotid artery stenosis (Acute) Chronic back pain (Acute) Chronic neck pain (Acute) Eczema (Acute) Edema extremities (Acute) Fatty liver disease, nonalcoholic (Acute) Fibromyalgia (Acute) Fusion of lumbar spine (Acute) Gout (Acute) HTN (hypertension) (Acute) Heart murmur (Acute) Hyperlipidemia (Acute) Hypothyroid (Acute) IBS (irritable bowel syndrome) (Acute) Kidney stones (Acute) LVH (left ventricular hypertrophy) (Acute) Lipoma (Acute) Migraines (Acute) Mosquito bite (Acute) Perforated ear drum (Acute) Seasonal allergies (Acute) Sleep apnea with use of continuous positive airway pressure (CPAP) (Acute) TIA (transient ischemic attack) (Acute) Venous insufficiency (Acute) Physical Therapy Inpatient Evaluation/Re-Eval M1 PT/OT-IP Prior Functional Status Start: 06/22/18 12:44 Freq: NEEDED Status: Active Protocol: Document 06/22/18 09:45 AMB (Rec: 06/22/18 12:58 AMB [email or web address]) Medical Review Prior Functional Status Medical History Reviewed Yes Mobility and Gait Ambulates with a SPC, L knee pain limits gait but ambulates in the community Activities of Daily Living and IADL's Driving, independent with ADLs Social History Household Members spouse Living Arrangements House Number of Floors (Floors) One Floor Number of Stairs To Enter/Railing? 2 stairs to enter, no rail per se but can hold on to a post Home Equipment Straight Cane Employment Status Retired M2 PT-IP Current Condition Start: 06/22/18 12:44 Freq: NEEDED Status: Active Protocol: Document 06/22/18 09:45 AMB (Rec: 06/22/18 12:58 AMB [email or web address]) Physical Therapy Current Condition Current Condition Evaluation Date 06/22/18 Treatment Diagnosis TIA Onset Date 06/21/18 Weight Bearing Status Weight Bearing Status Full Weight Bearing M3 PT-IP Subjective Start: 06/22/18 12:44 Freq: NEEDED Status: Active Protocol: Document 06/22/18 09:45 AMB (Rec: 06/22/18 12:58 AMB [email or web address]) Subjective Physical Therapy Visit Type Type Initial Evaluation Visit Start Time 09:45 Visit Stop Time 10:10 Total Visit Minutes 25 Physical Therapy Visit Comments Patient Comments Pt is feeling good, does not feel significant vision or L sided weakness today Therapy Pain Assessment Pain When Pain Assessed During Mobility Pain Present Pain Present Pain Reported Location Left Knee Intensity 2 Scale Used Numeric (1 - 10) M4 PT-IP Mobility and Gait Start: 06/22/18 12:44 Freq: NEEDED Status: Active Protocol: Document 06/22/18 09:45 AMB (Rec: 06/22/18 12:58 AMB [email or web address]) PT-Transfer Assessment Sit to and From Stand Sit to and from Stand Standby Assistance Equipment Transfer Assistive Device Gait Belt Straight Cane Transfers Transfer Destination Chair Transfer Technique Stand Step Pivot Transfer Ability Level of Assist Standby Assistance Comments Mobility Comments Pt denied any dizziness or lightheaded ness. SpO2 96% on room air. HR 53 Gait Assessment Gait Gait Assistance Required: Standby Assistance Distance (Feet) 200 Assistive Devices Assistive Device Gait Belt Straight Cane Gait Deviations General Gait Pattern Antalgic Decreased Stride Length Comments Gait Comments L knee creates antalgic gait, pt states this is baseline for her. Stair Climbing Assessment Evaluation Level of Assist On Stairs Contact Guard Assistance Devices Stair Climbing Assistive Devices Straight Cane Left Railing Technique/Endurance Stair Climbing Direction Ascend and Descend Stair Climbing Technique Step to Step Number of Steps Climbed 3 Query Text: Stair Climbing Set # Repetitions (reps) 1 Comments Stair Climbing Comments step to due to L knee pain PT-Balance Assessment Sitting Balance and Reactions Static Sitting Balance Ability Normal Dynamic Sitting Balance Ability Normal Standing Balance and Reactions Static Standing Balance Ability Good Dynamic Standing Balance Ability Fair Device Used SPC M5 PT-IP Objective Assessments Start: 06/22/18 12:44 Freq: NEEDED Status: Active Protocol: Document 06/22/18 09:45 AMB (Rec: 06/22/18 12:58 AMB [email or web address]) Gross Range of Motion Upper Extremity ROM Assessment Within Functional Limits Lower Extremity ROM Assessment Within Functional Limits Strength Upper Extremity Strength Assessment Within Functional Limits Lower Extremity Strength Assessment Within Functional Limits M7 PT-IP Assessment and Plan Start: 06/22/18 12:44 Freq: NEEDED Status: Active Protocol: Document 06/22/18 09:45 AMB (Rec: 06/22/18 12:58 AMB [email or web address]) PT Summary Assessment and Plan Potential Rehabilitation Potential Good Status of Condition at Evaluation Stable Summary Impairments Pain Strength Balance Gait Activity Tolerance Assessment Summary Paula feels she is doing well. Her will be able to be home with her. She was able to ambulate and ascend and descend stairs with CGA. Her baseline prior function is limited by her left knee pain. She should do well at home when medically stable. Goals Bed Mobility Goal Independent Transfer Goal Independent Gait Goal Independent Cane Gait Distance 200 Days to Meet Goals 2 Frequency of Treatment Frequency Of Treatment Once a Day Treatment Plan Other Recommendations and Next Treatment Improve gait distance and Focus independence with stairs. Recommendations To Nursing Amount of Assist Needed Standby Assistance Discharge Recommendations PT Discharge Recommendations Home
[2018-06-22] MEDS: CLOPIDOGREL 75 MG TABLET PO (16:51)
--- NOTE | 2018-06-22 17:39 | PC.NURSE ---
Addendum entered and electronically signed by Ned Villalobos R.N. 06/22/18 21:36: Continues to have joanna in 50-60's. NIH 0. MRI tomorrow and Pacemaker at [facility] per Dr. Cerna. Original Note: Pt. has bilateral lower leg/foot edema, non pitting. Pt. has joanna cardia 60BPM. Able to ambulate to bathroom, just stand by assist. Lung sounds clear, denies pain.
[2018-06-22] MEDS: ESCITALOPRAM 10 MG TABLET PO (21:00)
--- NOTE | 2018-06-22 23:55 | PC.NURSE ---
Addendum entered by Haley Valentino R.N. 06/23/18 06:21: Complaining of discomfort at IV site since KCL started; tried warm blanket earlier so now applied ice pack. Denies any pain. Tele readings this shift have been SB. Original Note: Patient is alert and oriented. Breath sounds CTA with RA sat of 94%; uses CPAP for sleep. HRR with rate of 60; last telemetry reading was ST at 1999. Denies nausea. BT present and abdomen is soft. Is incontinent of urine when I feel the urge to go, I'm already going but denies dysuria or frequency. Able to turn self in bed. Ambulates to bathroom with cane and SBA. Neuropathy in bilateral feet. Nonpitting bilateral ankle edema. Scars on bilateral anterior LE which she states are from mosquito bites she received 5 years ago. NIH is 0. Plan for MR stroke protocol in a.m. and then transfer to [facility] for pacemaker placement on Saturday. Denies pain. Fall risk score is high and bed alarm is activated.
[2018-06-23] VITALS (7 sets, daily range): BP systolic 131–167; BP diastolic 70–87; PULSE 54–88; RESP 16–18; TEMP 36.1–36.9; O2SAT 95–98
--- NOTE | 2018-06-23 | DI.MRI.S_ITS ---
PROCEDURE: MR ANGIO HEAD WO CON INDICATIONS: TIA SYMPTOMS TECHNIQUE: Noncontrast axial 3-D [id number] MR angiogram, with 3-dimensional maximum intensity projection (MIP) reformats of the internal carotid arteries and posterior circulation then performed. COMPARISON: [facility], CT, CT ANGIO HEAD AND NECK, 06/21/2018, 16:40. FINDINGS: Image quality: Excellent. Anterior circulation: Intracranial internal carotid arteries demonstrate normal intraluminal flow signal. Atherosclerotic irregularity noted in the communicating segment of the right internal carotid artery which causes focal, high-grade stenosis. Moderate atherosclerotic stenosis involving the distal supraclinoid segment of the left internal carotid artery. The flow within the paired anterior cerebral arteries is normal and symmetric. Atherosclerotic irregularity in the origin of the right intercerebral artery causes focal, high-grade stenosis. Atherosclerotic irregularity in the proximal A1 segment of the left intercerebral artery causes focal, high-grade stenosis. The flow within the middle cerebral arteries is normal and symmetric. Scattered atherosclerotic irregularity noted in the M1 segments of the middle cerebral arteries bilaterally which cause mild multifocal stenoses. The anterior communicating artery is seen. No stenoses, occlusions, or aneurysms. Posterior circulation: Visualized portions of the vertebral arteries demonstrate normal caliber, and join to form a normal appearing basilar artery. The flow within the posterior cerebral arteries is normal and symmetric. Mild atherosclerotic irregularity noted in the P1 segments of the posterior she will arteries bilaterally which cause mild multifocal stenoses. No stenoses, occlusions, or aneurysms. IMPRESSION: 1. High-grade stenosis of the distal supraclinoid segment of the right internal carotid artery. 2. High grade stenosis of the origin of the right anterior cerebral artery. 3. High-grade stenosis of the proximal A1 segment of the left anterior cerebral artery. 4. Multifocal mild stenoses involving the M1 segments of the middle cerebral arteries bilaterally and the P1 segments of the posterior cerebral arteries bilaterally. Dictated by: Radha Brock MD, PhD on 06/23/2018 at 12:30 Approved by: Radha Brock MD, PhD on 06/23/2018 at 12:36
[2018-06-23] MEDS: POTASSIUM CHLORIDE 60 MEQ in SODIUM CHLORIDE 0.9% 500 ML 88.333 ML IV (01:44)
[2018-06-23] MEDS: PANTOPRAZOLE 20 MG TABLET PO (06:18)
[2018-06-23] MEDS: LEVOTHYROXINE 75 MCG TABLET PO (06:18)
[2018-06-23] MEDS: ENOXAPARIN 40 MG/0.4 ML SYRINGE SUBCUT ×2 (09:00→20:18)
[2018-06-23] MEDS: ATORVASTATIN 20 MG TABLET 80 MG PO (09:01)
[2018-06-23] MEDS: ASPIRIN EC 81 MG TABLET PO (09:01)
[2018-06-23] MEDS: CLOPIDOGREL 75 MG TABLET PO (09:01)
--- NOTE | 2018-06-23 10:17 | OT.IP.TRT ---
Occupational Therapy Treatment Note M3 OT- IP Subjective and Pain Start: 06/23/18 10:03 Freq: Status: Active Protocol: Document 06/23/18 10:16 [facility] (Rec: 06/23/18 10:17 [facility] [id number]) OT- Subjective Occupational Therapy Visit Type Type Administrative Note Notes Pt to be going to [facility] on 06/24/18 for pacemaker, therefore not needing to be seen for OT eval at this time.
--- NOTE | 2018-06-23 10:31 | PT.IPTN ---
Physical Therapy Treatment Note M2 PT-IP Current Condition Start: 06/22/18 12:44 Freq: NEEDED Status: Active Protocol: Document 06/22/18 09:45 AMB (Rec: 06/22/18 12:58 AMB [email or web address]) Physical Therapy Current Condition Current Condition Evaluation Date 06/22/18 Treatment Diagnosis TIA Onset Date 06/21/18 Weight Bearing Status Weight Bearing Status Full Weight Bearing M3 PT-IP Subjective Start: 06/22/18 12:44 Freq: NEEDED Status: Active Protocol: Document 06/23/18 10:26 RS (Rec: 06/23/18 10:31 RS [id number]) Subjective Physical Therapy Visit Type Type Discharge Summary Visit Start Time 10:00 Visit Stop Time 10:26 Total Visit Minutes 26 Physical Therapy Visit Comments Patient Comments Pt reports she'll be transferring to [facility] either later today or tomorrow for pacemaker placement. Pt also reports she feels she's at her baseline. M4 PT-IP Mobility and Gait Start: 06/22/18 12:44 Freq: NEEDED Status: Active Protocol: Document 06/22/18 09:45 AMB (Rec: 06/22/18 12:58 AMB [email or web address]) PT-Transfer Assessment Sit to and From Stand Sit to and from Stand Standby Assistance Equipment Transfer Assistive Device Gait Belt Straight Cane Transfers Transfer Destination Chair Transfer Technique Stand Step Pivot Transfer Ability Level of Assist Standby Assistance Comments Mobility Comments Pt denied any dizziness or lightheaded ness. SpO2 96% on room air. HR 53 Gait Assessment Gait Gait Assistance Required: Standby Assistance Distance (Feet) 200 Assistive Devices Assistive Device Gait Belt Straight Cane Gait Deviations General Gait Pattern Antalgic Decreased Stride Length Comments Gait Comments L knee creates antalgic gait, pt states this is baseline for her. Stair Climbing Assessment Evaluation Level of Assist On Stairs Contact Guard Assistance Devices Stair Climbing Assistive Devices Straight Cane Left Railing Technique/Endurance Stair Climbing Direction Ascend and Descend Stair Climbing Technique Step to Step Number of Steps Climbed 3 Query Text: Stair Climbing Set # Repetitions (reps) 1 Comments Stair Climbing Comments step to due to L knee pain PT-Balance Assessment Sitting Balance and Reactions Static Sitting Balance Ability Normal Dynamic Sitting Balance Ability Normal Standing Balance and Reactions Static Standing Balance Ability Good Dynamic Standing Balance Ability Fair Device Used SPC M5 PT-IP Objective Assessments Start: 06/22/18 12:44 Freq: NEEDED Status: Active Protocol: Document 06/22/18 09:45 AMB (Rec: 06/22/18 12:58 AMB [email or web address]) Gross Range of Motion Upper Extremity ROM Assessment Within Functional Limits Lower Extremity ROM Assessment Within Functional Limits Strength Upper Extremity Strength Assessment Within Functional Limits Lower Extremity Strength Assessment Within Functional Limits M7 PT-IP Assessment and Plan Start: 06/22/18 12:44 Freq: NEEDED Status: Active Protocol: Document 06/23/18 10:26 RS (Rec: 06/23/18 10:31 RS [id number]) PT Summary Assessment and Plan Potential Rehabilitation Potential Good Status of Condition at Evaluation Stable Summary Assessment Summary Pt is safe for discharge to home once medically ready. Pt will likely be transferring to [facility] later today or tomorrow for pacemaker placement. Pt may need mobility reassessment after that surgery but is otherwise cleared here in this hospital. Pt has met acute PT goals, will sign off. Frequency of Treatment Frequency Of Treatment Discharge Recommendations To Nursing Amount of Assist Needed Standby Assistance Discharge Recommendations PT Discharge Recommendations Home
[2018-06-23] MEDS: LORazepam 2 MG/ML SYRINGE 1 MG IV (11:18)
--- NOTE | 2018-06-23 17:03 | PM.PN.1 ---
Subjective Date Patient Seen: 06/23/18 Interval history: chart reviewed patient seen and examined. Patient has had no further neurological symptoms. Specifically she reports no visual symptoms or change in her speech. Patient underwent MRI and MR angio. The MRA angio did confirmed high-grade stenosis which is intracranial. There is no definitive treatment for her intracranial stenosis. Patient is scheduled to transfer to [facility] for pacemaker placement. At this time there are no beds available but will continue to work on transfer. Exam Vital Signs (past 8 hours): - 06/23/18 15:45 Temperature 96.9 F L Pulse Rate 88 Respiratory Rate 18 Blood Pressure 145/70 H Pulse Oximetry 98 Oxygen Delivery Method Room Air Oxygen Flow Rate 0 Narrative Exam Narrative: Neuro exam: Cranial nerves 2-12 are intact, strength is symmetric and equal, sensation is grossly intact reflexes are brisk and equal, speech is fluent cardiac exam: Regular rate rhythm normal S1 and S2 lungs: Clear to auscultation abdomen soft nontender extremities no edema Objective Labs Result Diagrams: 06/22/18 05:58 06/22/18 05:58 Assessment & Plan (1) TIA involving carotid artery: Problem details: TIA, present on admission, Acute Symptoms now resolved. Current visit: Yes Status: Acute (2) Essential hypertension: Problem details: continue current therapy Current visit: Yes Status: Acute (3) Bradycardia: Problem details: anticipate transfer to [facility] for pacemaker placement Current visit: Yes Status: Acute (4) Morbid obesity: Current visit: Yes Status: Acute
[2018-06-23] MEDS: ESCITALOPRAM 10 MG TABLET PO (20:17)
--- NOTE | 2018-06-23 22:38 | PC.NURSE ---
Pt up to chair, A/O x3, asking if she is transferring today to [facility]. We are awaiting conformation on a bed avilable for pt to transfer to for cardiac workup and possible pacemaker placement. this continuity writer did not receive any new on transfer this shift. 97%RA, LS clear, denies SOB. NIH score- 0. Pt denies headache, nausea, or any other new pain, chronic pain to neck/back with baseline 6-7/10 pain. Pt reports takes aleve at home for pain. bilat lower leg, ankle, feet non ren edema, pt reports this is baseline. Indep to BRP, SBA for shower this shift. RFA SL. Telemetry in place with SB (55), SB 1 degree AVB (55). Hx TIA's, HTN, and SB. Pt with own CPAP without O2 bleed in. Pt refused calf SCD's. Bed alarm on for safety.
[2018-06-24] VITALS (10 sets, daily range): BP systolic 144–190; BP diastolic 74–91; PULSE 54–62; RESP 16–20; TEMP 36.1–37.3; O2SAT 94–100
[2018-06-24] MEDS: ACETAMINOPHEN 325 MG TABLET 650 MG PO ×2 (00:36→19:18)
--- NOTE | 2018-06-24 01:15 | PC.NURSE ---
Addendum entered by Haley Valentino R.N. 06/24/18 05:39: States she slept well and currently denies pain. BP this morning is more elevated at 174/79. Original Note: Patient is alert and oriented. Breath sounds CTA with RA sat of 98%. HRR with telemetry reading of SB w/1st degree AVB; awaiting transfer to [facility] for pacemaker placement. BP elevated at 143/76. Denies nausea. BT present and abdomen is soft; passing flatus and had BM yesterday. Is incontinent of urine but also voids on toilet; wears pad. Denies dysuria and urine is clear. Able to turn self in bed. Ambulates to/from bathroom with cane and SBA. 1+ bilateral LE edema. Scarring on lower anterior legs noted. Chronic bilateral LE neuropathy. Admits to 5/10 normal generalized pain; requested/medicated with Tylenol. Refusing SCD's so reminded to ankle wave. No neuro deficits noted.
[2018-06-24] MEDS: PANTOPRAZOLE 20 MG TABLET PO (05:35)
[2018-06-24] MEDS: LEVOTHYROXINE 75 MCG TABLET PO (05:35)
[2018-06-24 05:59] LABS: BUN Creatinine Ratio 34.3 (6-22); Blood Urea Nitrogen 24 mg/dL (7-17); Calcium 9.5 mg/dL (8.4-10.2); Carbon Dioxide 27 mmol/L (22-32); Chloride 105 mmol/L (98-107); Estimated Glomerular Filt Rate > 60.0 mL/min (>60); Glucose 106 mg/dL (80-110); HEMOLYSIS < 15 (0-50); Magnesium 1.8 mg/dL (1.6-2.3); Potassium 3.7 mmol/L (3.4-5.1); Sodium 139 mmol/L (137-145)
[2018-06-24] MEDS: ASPIRIN EC 81 MG TABLET PO (08:58)
[2018-06-24] MEDS: ATORVASTATIN 20 MG TABLET 80 MG PO (08:58)
[2018-06-24] MEDS: CLOPIDOGREL 75 MG TABLET PO (08:58)
[2018-06-24] MEDS: ENOXAPARIN 40 MG/0.4 ML SYRINGE SUBCUT ×2 (08:59→21:34)
[2018-06-24] MEDS: SODIUM CHLORIDE 0.9% FLUSH 10 ML IV ×2 (09:00→21:34)
--- NOTE | 2018-06-24 13:46 | CM.DPC ---
DCP: continued: case received yesterday and discussed in Team Rounds. A transfer to [facility] was planned for pacemaker placement. Discussed case again this morning in Rounds. Dr. Maciel noted that [facility] was full yesterday. She and RN Coordinator Michell discussed ? of looking for another facility vs a d/c home with OUTPT Pacemaker planned. Dr. Maciel planned look into this further today.
--- NOTE | 2018-06-24 14:22 | PC.NURSE ---
[facility] midnight and to call in the morning about transferring pt for possible pacemaker placement around noon, Dr Maciel notified and pt's nurse Stephanie
--- NOTE | 2018-06-24 16:20 | P.PN_ITS ---
Subjective Date Patient Seen: 06/24/18 Interval history: patient is a 68-year-old female admitted to the hospital with an acute TIA. Patient is found to have a high-grade intracranial stenosis. She has known bradycardia. There is concern that during her bradycardic episodes she has been hypoperfused her brain leading to TIA symptoms. Since she has been here she has had no recurrent symptoms of slurred speech weakness facial droop or other neurological symptoms. Her heart rate has been in the 55-57 range here in the hospital. Arrangements have been made to transfer her to [facility] for pacemaker placement. Patient will be made NPO after midnight tonight with plans to transfer tomorrow for definitive pacemaker placement. She has no other specific complaints. She is resting comfortably at this Exam Vital Signs (past 8 hours): - 06/24/18 08:50 06/24/18 11:45 06/24/18 15:20 Temperature 97.7 F 98.7 F Pulse Rate 56 L 54 L Respiratory Rate 16 18 Blood Pressure 176/81 H 144/75 H Pulse Oximetry 96 98 100 Oxygen Delivery Method Room Air Oxygen Flow Rate 0 Narrative Exam Narrative: Pleasant female in no obvious distress lungs: Clear to auscultation cardiac exam: Bradycardic regular rate and rhythm normal S1 and S2 with a 2/6 systolic ejection murm ur abdomen: Soft nontender nondistended extremities: No edema Objective Labs Result Diagrams: 06/22/18 05:58 06/24/18 05:28 Labs: Laboratory Results - last 24 hr 06/24/18 05:28 Sodium 139 Potassium 3.7 Chloride 105 Carbon Dioxide 27 BUN 24 H Creatinine 0.70 Estimated GFR > 60.0 BUN/Creatinine Ratio 34.3 H Glucose 106 Calcium 9.5 Magnesium 1.8 Assessment & Plan (1) TIA involving carotid artery: Problem details: TIA, present on admission, Acute Symptoms now resolved. awaiting pacemaker placement Current visit: Yes Status: Acute (2) Essential hypertension: Problem details: continue current therapy Current visit: Yes Status: Acute (3) Morbid obesity: Current visit: Yes Status: Acute (4) Bradycardia: Problem details: anticipate transfer to [facility] for pacemaker placement plan for pacemaker placement tomorrow. Patient will be made NPO after midnight tonight Current visit: Yes Status: Acute
[2018-06-24] MEDS: ESCITALOPRAM 10 MG TABLET PO (21:34)
[2018-06-25] VITALS (13 sets, daily range): BP systolic 140–173; BP diastolic 67–97; PULSE 53–61; RESP 16–20; TEMP 36–37.1; O2SAT 95–100
--- NOTE | 2018-06-25 02:02 | PC.NURSE ---
Assumed care of pt at 2300 on 06/24/18. Pt resting in bed during bedside hand-off. BP elevated pulse joanna. Denies chest pain, pressure, dizziness or headache. BP lower upon recheck. NIH 0; GCS 15. Able to reposition independently in bed. Pt aware to notify staff of any s/s of CVA. Calling appropriately for needs.
[2018-06-25 06:09] LABS: Add Manual Diff / Slide Review NO; Basophils Absolute Auto 0 /uL (0-100); Basophils Percent Auto 0.3 % (0-2); Eosinophils Absolute Auto 400 /uL (0-450); Eosinophils Percent Auto 4.2 % (2-4); Hematocrit 40.6 % (36-46); Hemoglobin 13.4 g/dL (12.0-16.0); Lymphocytes Absolute Auto 1800 /uL (1100-4500); Lymphocytes Percent Auto 18.6 % (25-40); Monocytes Absolute Auto 700 /uL (0-900); Neutrophils Absolute Auto 6800 /uL (1500-7000); Neutrophils Percent Auto 69.9 % (50-75); Platelet Count 288 X10^3/uL (150-400); Red Blood Cell Count 4.61 X10^6/uL (4.0-5.2); White Blood Cell Count 9.7 X10^3/uL (4.5-11.0)
[2018-06-25] MEDS: LEVOTHYROXINE 75 MCG TABLET PO (06:09)
[2018-06-25] MEDS: PANTOPRAZOLE 20 MG TABLET PO (06:09)
[2018-06-25 06:11] LABS: Prothrombin Time 11.1 SECONDS (10.1-12.7)
[2018-06-25 06:14] LABS: PTT Partial Thromboplastin Tim 37 SECONDS (26.4-36.2)
[2018-06-25 06:16] LABS: Blood Urea Nitrogen 21 mg/dL (7-17); Calcium 9.6 mg/dL (8.4-10.2); Carbon Dioxide 28 mmol/L (22-32); Chloride 105 mmol/L (98-107); Estimated Glomerular Filt Rate > 60.0 mL/min (>60); Glucose 128 mg/dL (80-110); HEMOLYSIS < 15 (0-50); Potassium 3.5 mmol/L (3.4-5.1); Sodium 140 mmol/L (137-145)
--- NOTE | 2018-06-25 08:11 | PC.NURSE ---
Addendum entered by Nu Amaya R.N. 06/25/18 13:00: notified that pacemaker placement will be delayed until tomorrow. MD ordered to give medications that were held this AM and that she would put in a new diet order. Original Note: MD clarified to hold AM meds/blood thinners due to possible pacemaker placement today.
[2018-06-25] MEDS: SODIUM CHLORIDE 0.9% FLUSH 10 ML IV ×2 (08:30→21:18)
--- NOTE | 2018-06-25 10:33 | P.DS_ITS ---
History of Present Illness Date Patient Seen: 06/25/18 Chief complaint: TIA Symptoms Narrative: Paula Grubbs this 60-year-old female patient with a history significant for carotid artery stenosis, prior TIAs, atypical chest pain, CHF, cardiac murmur, gout, hyperlipidemia, hypothyroidism, migraines and obstructive sleep apnea who presents to the ER with complaints of a sudden onset of aphasia and left-sided weakness, numbness and tingling. Patient was at her machine operator hop picker's office 2 days ago which she has found have hypertensive urgency and was admitted to [facility] over night. Patient states her blood pressure had normalized and she was discharged today at 12:30 p.m.. At 1:30 a.m. she began experiencing difficulty speaking with aphasia, visual scotoma with what she describes as tunnel vision and loss of her right visual field, left-sided weakness numbness and tingling. By the time the patient presented to the ER her symptoms were beginning to clear. Onset of the patient's symptoms while she was making lunch for . She had no prodromal symptoms has had no headaches and denies fevers or chills head congestion or sore throat. She denies developing chest pain or shortness of breath. She has no cough but did feel nauseous without vomiting. She does have a history of IBS and reports chronic will level abdominal pain that will wax and wane with a her IBS symptoms. She has had no recent constipation or diarrhea reports no difficulty urinating. At the time of evaluation the patient has mild persistent alteration in sensation in the left hand vision has returned to normal and cranial nerves are intact without deficit. Patient arrived in the ER at 4:23 p.m. at which time she was afebrile at 97.6 heart rate of 51, blood pressure of 131/39, respiratory rate of 20 and oxyge nation at 90%. She had a CT of the head completed which showed no acute intracranial processes followed by a CT a which demonstrates diminished flowed in the right anterior cerebral artery and middle cerebral artery related to high-grade stenosis involving the origin of the right anterior cerebral artery and multifocal moderate stenosis of the M1 segments of both middle cerebral arteries. On laboratory analysis the patient is found have an unremarkable CBC and electrolytes within normal limits. Her BUN is 25 and creatinine is 0.9 with an EGFR 60 and BUN creatinine ratio of 27.81. Her PT is 11.7 with an INR of 1.0 with a PTT of 25. Her troponin is negative at 0.012. Tele neurology is co nsulted. Patient is not appropriate for tPA. The patient is admitted for TIA. Discharge Providers Date of admission: 06/21/18 20:23 Discharge Date: 06/25/18 Primary care physician: Priti Hightower MD Consults: 06/21/18 21:33 Consult to Occupational Therapy Evaluate & Treat Comment: TIA Physician Instructions: Evaluate and treat Consult to Physical Therapy Evaluate & Treat Comment: TIA Physician Instructions: Evaluate and Treat 06/21/18 21:34 Consult to Discharge Planning Routine Comment: Discharge provider: Shani Maciel MD Summary Discharge Diagnosis: TIA, present on admission High grade Carotid Stenosis, present on admission Symptomatic Bradycardia, present on admission Obstructive Sleep Apnea Morbid Obesity Hyperlipidemia Hypertension Gout Chronic Congestive Heart Failure, type unknown Hypothyroidism Hospital Course: Patient was admitted to the hospital for evaluation of a TIA. Her symptoms resolved. MRA findings: High-grade stenosis of the distal supraclinoid segment of the right internal carotid artery. 2. High grade stenosis of the origin of the right anterior cerebral artery. MRI 3. High-grade stenosis of the proximal A1 segment of the left anterior cerebral artery. MRI showed no evidence of acute ischemia Patient was transferred to [facility] for Pacemaker placement for symptomatic bradycardia. It was felt that the bradycardia was causing low flow thru her high grade stenosis resulting in TIA symptoms. Patient is in no acute distress and agreeable to transfer. 4. Multifocal mild stenoses involving the M1 segments of the middle cerebral arteries bilaterally and the P1 segments of the posterior cerebral arteries bilaterally. After discussion with Cardiology plans were made to transfer to [facility] for definitive pacemaker placement. Exam Vital Signs (past 8 hours): - 06/25/18 05:00 06/25/18 05:52 06/25/18 07:45 Temperature 98.2 F 98.1 F Pulse Rate 61 58 L Respiratory Rate 18 16 Blood Pressure 140/78 147/94 H Pulse Oximetry 97 97 97 06/25/18 08:49 Temperature Pulse Rate Respiratory Rate Blood Pressure Pulse Oximetry 97 Oxygen Delivery Method Room Air Oxygen Flow Rate 0 Narrative Exam Narrative: pleasant female resting comfortably Lungs: clear to auscultation CV: RRR, bradycardic, nl Sl S2 2/6 BING Abd: soft/ non tender/ non distended Ext: no edema Neuro: non focal Objective Labs Result Diagrams: 06/25/18 05:35 06/25/18 05:35 Labs: Laboratory Results - last 24 hr 06/25/18 06/25/18 06/25/18 05:35 05:35 05:35 WBC 9.7 RBC 4.61 Hgb 13.4 Hct 40.6 MCV 88.0 MCH 29.0 MCHC 33.0 RDW 14.0 Plt Count 288 Neut % (Auto) 69.9 Lymph % (Auto) 18.6 L [place] % (Auto) 7.0 Eos % (Auto) 4.2 H Baso % (Auto) 0.3 Neut # (Auto) 6800 Lymph # (Auto) 1800 [place] # (Auto) 700 Eos # (Auto) 400 Baso # (Auto) 0 PT 11.1 INR 1.0 APTT 37 H D Sodium 140 Potassium 3.5 Chloride 105 Carbon Dioxide 28 BUN 21 H Creatinine 0.70 Estimated GFR > 60.0 BUN/Creatinine Ratio 30.0 H Glucose 128 H Calcium 9.6 Discharge Plan Discharge Plan Discharge Problem: Acute CVA (cerebrovascular accident) Patient Disposition: [facility] Transfer to: [facility] Discharge Med Rec/Prescriptions Prescriptions: New clopidogrel 75 mg Tablet 75 mg PO DAILY Qty: 30 RF: 0 Continued levothyroxine [Synthroid] 75 mcg tablet 75 mcg PO DAILY RF: 0 allopurinol 100 mg tablet 100 mg PO DAILY RF: 0 atorvastatin 40 mg tablet 40 mg PO DAILY RF: 0 magnesium 200 mg tablet 100 mg PO DAILY RF: 0 methylprednisolone [Medrol (Joce)] 4 mg tablets,dose pack See Rx Instructions PO PER PKG DIR Qty: 21 RF: 1 furosemide [Lasix] 40 mg Tablet 40 mg PO DAILY PRN (Reason: Edema) RF: 0 diazepam [Valium] 10 mg Tablet 10 mg PO PRN PRN (Reason: medical procedures) RF: 0 loratadine [Claritin] 10 mg Tablet 10 mg PO DAILY PRN (Reason: seasonal allergies) RF: 0 escitalopram oxalate [Lexapro] 10 mg Tablet 10 mg PO BEDTIME RF: 0 aspirin 81 mg Tablet,Delayed Release (Dr/Ec) 81 mg PO DAILY RF: 0 naproxen sodium [Aleve] 220 mg Capsule 2 tab PO DAILY PRN (Reason: pain) RF: 0 losartan 25 mg Tablet 25 mg PO BEDTIME RF: 0 fluticasone propionate [Flonase Allergy Relief] 50 mcg/actuation [place],Suspension 1 spr/day Intranasal DAILY PRN (Reason: Allergic Symptoms) RF: 0 hydrocodone-acetaminophen 5-325 mg Tablet See Rx Instructions .ROUTE .COMPLEX PRN (Reason: Pain, Severe (7-10)) Qty: 50 RF: 0 hydroxyzine pamoate 25 mg Capsule 25 mg PO Q4HR PRN (Reason: Nausea And Vomiting) Qty: 20 RF: 0 ondansetron HCl [Zofran] 4 mg tablet 4 mg PO .qh6 PRN (Reason: nausea and vomiting) Qty: 20 RF: 0 hydrocodone-acetaminophen [[place]] 5-325 mg tablet 1 tab PO Q4-6H PRN (Reason: pain) Qty: 50 RF: 0 Follow up/Referrals: Priti Hightower MD [Primary Care Provider] - Discharge Orders: Discharge (Order); Ordered 06/25/18 Ordered By: Shani Maciel Provider Discharge Instructions Diet: Diet as Tolerated and Low-sodium Liquid consistency: Normal/Thin Food texture: Regular Activity: as tolerated Skin/Wound/Dressing Care Report to your healthcare provider any signs of infection, such as:: chills, fever Discharge Data Primary Care Provider: Priti Hightower Attending Provider: Judson Castillo Date/Time: 06/21/18 20:23
[2018-06-25] MEDS: ATORVASTATIN 20 MG TABLET 80 MG PO (12:08)
[2018-06-25] MEDS: CLOPIDOGREL 75 MG TABLET PO (12:09)
[2018-06-25] MEDS: ASPIRIN EC 81 MG TABLET PO (12:09)
[2018-06-25] MEDS: ENOXAPARIN 40 MG/0.4 ML SYRINGE SUBCUT ×2 (12:09→21:17)
--- NOTE | 2018-06-25 19:32 | PC.NURSE ---
Addendum entered and electronically signed by Ned Villalobos R.N. 06/25/18 22:09: Pt reporting 6/10 pain in feet and back. Medicated w/ Tylenol 650 mg @2200. Original Note: Pt is having issues with adhesive tape from tele monitor pads, she was switched to pediatric pads to minimize exposure to adhesive. NIH of 0, has some pain which is chronic. Lung sounds clear bilaterally. Bilateral lower leg edema present, non pitting. Pt is on tele sinus joanna in 50-60's. Pt 95% on RA, BP 149/97.
[2018-06-25] MEDS: ESCITALOPRAM 10 MG TABLET PO (21:17)
[2018-06-25] MEDS: ACETAMINOPHEN 325 MG TABLET 650 MG PO (22:07)
--- NOTE | 2018-06-26 03:02 | PC.NURSE ---
Assumed care of pt at 2300 on 06/25/18. Pt resting in bed during bedside hand-off. Denies pain. NIH 0, pt aware to notify staff for any s/s of stroke. Tele in place. NPO at [place] for pacemaker placement 06/26/18. Oral care set-up. SBA steady on feet. CPAP on. Calling appropriately for needs.
[2018-06-26 04:00] VITALS: O2SAT 97
[2018-06-26 06:03] VITALS: BP 157/74; PULSE 49; RESP 18; TEMP 36.4; O2SAT 99
[2018-06-26] MEDS: LEVOTHYROXINE 75 MCG TABLET PO (06:03)
[2018-06-26] MEDS: PANTOPRAZOLE 20 MG TABLET PO (06:03)
[2018-06-26 09:00] VITALS: BP 168/74; PULSE 57; RESP 18; TEMP 36.5; O2SAT 97
[2018-06-26] MEDS: SODIUM CHLORIDE 0.9% FLUSH 10 ML IV (09:38)
[2018-06-26] MEDS: CLOPIDOGREL 75 MG TABLET PO (09:39)
[2018-06-26] MEDS: ENOXAPARIN 40 MG/0.4 ML SYRINGE SUBCUT (09:39)
[2018-06-26] MEDS: ASPIRIN EC 81 MG TABLET PO (09:39)
[2018-06-26] MEDS: ATORVASTATIN 20 MG TABLET 80 MG PO (09:39)
[2018-06-26 10:00] VITALS: O2SAT 98
[2018-06-26 11:17] VITALS: BP 174/77; PULSE 55; RESP 18; TEMP 36.7; O2SAT 98
--- NOTE | 2018-06-26 11:50 | PC.NURSE ---
THIS RN AT BEDSIDE THIS AM DURING DOCTOR ROUNDS TO SEE PATIENT. PATIENT TO DC HOME AND HAVE PACEMAKER PLACED OUTPATIENT. HAS SPOKEN WITH DR. VERNON TODAY, WHO IS AWARE OF POC. MD INSTRUCTED PATIENT TO CALL HIS OFFICE TO GET AN IDEA OF WHEN THEY WILL BE ABLE TO SCHEDULE HER. PATIENT LEFT BY WC W/ SPOUSE IN NO S/SX'S OF DISTRESS. HER SCRIPT FOR PLAVIX WAS ELECTRONICALLY SENT TO HER PHARMACY BY . SHE WILL PICK THAT UP ON HER WAY HOME.
--- NOTE | 2018-07-30 16:31 | PM.DS.1 ---
History of Present Illness Chief complaint: TIA Symptoms Narrative: Paula Grubbs this 60-year-old female patient with a history significant for carotid artery stenosis, prior TIAs, atypical chest pain, CHF, cardiac murmur, gout, hyperlipidemia, hypothyroidism, migraines and obstructive sleep apnea who presents to the ER with complaints of a sudden onset of aphasia and left-sided weakness, numbness and tingling. Patient was at her aba therapist's office 2 days ago which she has found have hypertensive urgency and was admitted to [facility] over night. Patient states her blood pressure had normalized and she was discharged today at 12:30 p.m.. At 1:30 a.m. she began experiencing difficulty speaking with aphasia, visual scotoma with what she describes as tunnel vision and loss of her right visual field, left-sided weakness numbness and tingling. By the time the patient presented to the ER her symptoms were beginning to clear. Onset of the patient's symptoms while she was making lunch for . She had no prodromal symptoms has had no headaches and denies fevers or chills head congestion or sore throat. She denies developing chest pain or shortness of breath. She has no cough but did feel nauseous without vomiting. She does have a history of IBS and reports chronic will level abdominal pain that will wax and wane with a her IBS symptoms. She has had no recent constipation or diarrhea reports no difficulty urinating. At the time of evaluation the patient has mild persistent alteration in sensation in the left hand vision has returned to normal and cranial nerves are intact without deficit. Patient arrived in the ER at 4:23 p.m. at which time she was afebrile at 97.6 heart rate of 51, blood pressure of 131/39, respiratory rate of 20 and oxygenation at 90%. She had a CT of the head completed which showed no acute intracranial processes followed by a CT a which demonstrates diminished flowed in the right anterior cerebral artery and middle cerebral artery related to high-grade stenosis involving the origin of the right anterior cerebral artery and multifocal moderate stenosis of the M1 segments of both middle cerebral arteries. On laboratory analysis the patient is found have an unremarkable CBC and electrolytes within normal limits. Her BUN is 25 and creatinine is 0.9 with an EGFR 60 and BUN creatinine ratio of 27.81. Her PT is 11.7 with an INR of 1.0 with a PTT of 25. Her troponin is negative at 0.012. Tele neurology is consulted. Patient is not appropriate for tPA. The patient is admitted for TIA. Discharge Providers Date of admission: 06/21/18 20:23 Discharge Date: 06/26/18 Primary care physician: Priti Hightower MD Consults: 06/21/18 21:33 Consult to Occupational Therapy Evaluate & Treat Comment: TIA Physician Instructions: Evaluate and treat Consult to Physical Therapy Evaluate & Treat Comment: TIA Physician Instructions: Evaluate and Treat 06/21/18 21:34 Consult to Discharge Planning Routine Comment: Discharge provider: Shani Maciel MD Summary Discharge Diagnosis: Discharge Diagnosis: TIA, present on admission High grade Carotid Stenosis, present on admission Symptomatic Bradycardia, present on admission Obstructive Sleep Apnea Morbid Obesity Hyperlipidemia Hypertension Gout Chronic Congestive Heart Failure, type unknown Hypothyroidism Hospital Course: Patient was admitted to the hospital for evaluation of a TIA. Her symptoms resolved. MRA findings: High-grade stenosis of the distal supraclinoid segment of the right internal carotid artery. 2. High grade stenosis of the origin of the right anterior cerebral artery. MRI 3. High-grade stenosis of the proximal A1 segment of the left anterior cerebral artery. MRI showed no evidence of acute ischemia Patient was transferred to [facility] for Pacemaker placement for symptomatic bradycardia. It was felt that the bradycardia was causing low flow thru her high grade stenosis resulting in TIA symptoms. Patient is in no acute distress and agreeable to transfer. 4. Multifocal mild stenoses involving the M1 segments of the middle cerebral arteries bilaterally and the P1 segments of the posterior cerebral arteries bilaterally. After discussion with Cardiology plans were made to transfer to [facility] for definitive pacemaker placement. Hospital Course: Patient was admitted to the hospital for TIAs. She had known bradycardia and was scheduled to be seen for an outpatient pacemaker placement. Given her significant bradycardia and repeat TIAs she was referred to [facility] for pacemaker placement. As they accept her in transfer with continued discussion with Dr. Vernon plans were made for her to be discharged home and for her to follow up as an outpatient for pacemaker placement. The patient had no further TIA symptoms during her hospital stay. She was not shown to have significant bradycardia. She was seen and evaluated and felt to be appropriate for discharge home. Status at Discharge Cognitive/behavioral status at discharge: oriented Functional status at discharge: independent ambulation Overall status at discharge: patient is back to baseline Time Spent with Patient Less than 30 minutes Exam Vital Signs (past 8 hours): Oxygen Delivery Method Room Air Oxygen Flow Rate 0 Narrative Exam Narrative: Pleasant female in no acute distress Lungs: Clear to auscultation Cardiac exam: Regular rate and rhythm normal S1-S2 Abdomen: Soft nontender Extremities: No edema Objective Labs Result Diagrams: 06/25/18 05:35 06/25/18 05:35 Discharge Plan Discharge Plan Patient Disposition: Home Discharge comment: CALL DR. VERNON'S OFFICE TO ARRANGE FOR OUTPATIENT PACEMAKER PLACEMENT. [phone] Discharge Med Rec/Prescriptions Prescriptions: New clopidogrel 75 mg Tablet 75 mg PO DAILY Qty: 30 RF: 0 Continued levothyroxine [Synthroid] 75 mcg tablet 75 mcg PO DAILY RF: 0 allopurinol 100 mg tablet 100 mg PO DAILY RF: 0 atorvastatin 40 mg tablet 40 mg PO DAILY RF: 0 magnesium 200 mg tablet 100 mg PO DAILY RF: 0 methylprednisolone [Medrol (Joce)] 4 mg tablets,dose pack See Rx Instructions PO PER PKG DIR Qty: 21 RF: 1 furosemide [Lasix] 40 mg Tablet 40 mg PO DAILY PRN (Reason: Edema) RF: 0 diazepam [Valium] 10 mg Tablet 10 mg PO PRN PRN (Reason: medical procedures) RF: 0 loratadine [Claritin] 10 mg Tablet 10 mg PO DAILY PRN (Reason: seasonal allergies) RF: 0 escitalopram oxalate [Lexapro] 10 mg Tablet 10 mg PO BEDTIME RF: 0 aspirin 81 mg Tablet,Delayed Release (Dr/Ec) 81 mg PO DAILY RF: 0 naproxen sodium [Aleve] 220 mg Capsule 2 tab PO DAILY PRN (Reason: pain) RF: 0 losartan 25 mg Tablet 25 mg PO BEDTIME RF: 0 fluticasone propionate [Flonase Allergy Relief] 50 mcg/actuation [place],Suspension 1 spr/day Intranasal DAILY PRN (Reason: Allergic Symptoms) RF: 0 hydrocodone-acetaminophen 5-325 mg Tablet See Rx Instructions .ROUTE .COMPLEX PRN (Reason: Pain, Severe (7-10)) Qty: 50 RF: 0 hydroxyzine pamoate 25 mg Capsule 25 mg PO Q4HR PRN (Reason: Nausea And Vomiting) Qty: 20 RF: 0 ondansetron HCl [Zofran] 4 mg tablet 4 mg PO .qh6 PRN (Reason: nausea and vomiting) Qty: 20 RF: 0 hydrocodone-acetaminophen [[place]] 5-325 mg tablet 1 tab PO Q4-6H PRN (Reason: pain) Qty: 50 RF: 0 Follow up/Referrals: Priti Hightower MD [Primary Care Provider] - Provider Discharge Instructions Diet: Diet as Tolerated and Low-sodium Activity: as tolerated Skin/Wound/Dressing Care Report to your healthcare provider any signs of infection, such as:: chills, fever Visit Report/Discharge Packet Instructions: Pacemaker Insertion, DI for Transient Ischemic Attack, Clopidogrel Discharge Data Primary Care Provider: Priti Hightower Attending Provider: Judson Castillo Admit Date/Time: 06/21/18 20:23 Discharges patient from system. Discharge Date/Time: 06/26/18 11:50
--- NOTE | 2018-07-30 16:36 | P.DS_ITS ---
History of Present Illness Chief complaint: TIA Symptoms Narrative: Paula Grubbs this 60-year-old female patient with a history significant for carotid artery stenosis, prior TIAs, atypical chest pain, CHF, cardiac murmur, gout, hyperlipidemia, hypothyroidism, migraines and obstructive sleep apnea who presents to the ER with complaints of a sudden onset of aphasia and left-sided weakness, numbness and tingling. Patient was at her ca rdiologist's office 2 days ago which she has found have hypertensive urgency and was admitted to [facility] over night. Patient states her blood pressure had normalized and she was discharged today at 12:30 p.m.. At 1:30 a.m. she began experiencing difficulty speaking with aphasia, visual scotoma with what she describes as tunnel vision and loss of her right visual field, left-sided weakness numbness and tingling. By the time the patient presented to the ER her symptoms were beginning to clear. Onset of the patient's symptoms while she was making lunch for . She had no prodromal symptoms has had no headaches and denies fevers or chills head congestion or sore throat. She denies developing chest pain or shortness of breath. She has no cough but did feel nauseous without vomiting. She does have a history of IBS and reports chronic will level abdominal pain that will wax and wane with a her IBS symptoms. She has had no recent constipation or diarrhea reports no difficulty urinating. At the time of evaluation the patient has mild persistent alteration in sensation i n the left hand vision has returned to normal and cranial nerves are intact without deficit. Patient arrived in the ER at 4:23 p.m. at which time she was afebrile at 97.6 heart rate of 51, blood pressure of 131/39, respiratory rate of 20 and oxygenation at 90%. She had a CT of the head completed which showed no acute intracranial processes followed by a CT a which demonstrates diminished flowed in the right anterior cerebral artery and middle cerebral artery related to high-grade stenosis involving the origin of the right anterior cerebral artery and multifocal moderate stenosis of the M1 segments of both middle cerebral arteries. On laboratory analysis the patient is found have an unremarkable CBC and electrolytes within normal limits. Her BUN is 25 and creatinine is 0.9 with an EGFR 60 and BUN creatinine ratio of 27.81. Her PT is 11.7 with an INR of 1.0 with a PTT of 25. Her troponin is negative at 0.012. Tele neurology is consulted. Patient is not appropriate for tPA. The patient is admitted for TIA. Discharge Providers Date of admission: 06/21/18 20:23 Discharge Date: 06/26/18 Primary care physician: Priti Hightower MD Consults: 06/21/18 21:33 Consult to Occupational Therapy Evaluate & Treat Comment: TIA Physician Instructions: Evaluate and treat Consult to Physical Therapy Evaluate & Treat Comment: TIA Physician Instructions: Evaluate and Treat 06/21/18 21:34 Consult to Discharge Planning Routine Comment: Discharge provider: Shani Maciel MD Summary Discharge Diagnosis: Discharge Diagnosis: TIA, present on admission High grade Carotid Stenosis, present on admission Symptomatic Bradycardia, present on admission Obstructive Sleep Apnea Morbid Obesity Hyperlipidemia Hypertension Gout Chronic Congestive Heart Failure, type unknown Hypothyroidism Hospital Course: Patient was admitted to the hospital for evaluation of a TIA. Her symptoms resolved. MRA findings: High-grade stenosis of the distal supraclinoid segment of the right internal carotid artery. 2. High grade stenosis of the origin of the right anterior cerebral artery. MRI 3. High-grade stenosis of the proximal A1 segment of the left anterior cerebral artery. MRI showed no evidence of acute ischemia Patient was transferred to [facility] for Pacemaker placement for symptomatic bradycardia. It was felt that the bradycardia was causing low flow thru her high grade stenosis resulting in TIA symptoms. Patient is in no acute distress and agreeable to transfer. 4. Multifocal mild stenoses involving the M1 segments of the middle cerebral ar teries bilaterally and the P1 segments of the posterior cerebral arteries bilaterally. After discussion with Cardiology plans were made to transfer to [facility] for definitive pacemaker placement. Hospital Course: Patient was admitted to the hospital for TIAs. She had known bradycardia and was scheduled to be seen for an outpatient pacemaker placement. Given her significant bradycardia and repeat TIAs she was referred to [facility] for pacemaker placement. As they accept her in transfer with continued discussion with Dr. Vernon plans were made for her to be discharged home and for her to follow up as an outpatient for pacemaker placement. The patient had no further TIA symptoms during her hospital stay. She was not shown to have significant bradycardia. She was seen and evaluated and felt to be appropriate for discharge home. Status at Discharge Cognitive/behavioral status at discharge: oriented Functional status at discharge: independent ambulation Overall status at discharge: patient is back to baseline Time Spent with Patient Less than 30 minutes Exam Vital Signs (past 8 hours): Oxygen Delivery Method Room Air Oxygen Flow Rate 0 Narrative Exam Narrative: Pleasant female in no acute distress Lungs: Clear to auscultation Cardiac exam: Regular rate and rhythm normal S1-S2 Abdomen: Soft nontender Extremities: No edema Objective Labs Result Diagrams: 06/25/18 05:35 06/25/18 05:35 Discharge Plan Discharge Plan Patient Disposition: Home Discharge comment: CALL DR. VERNON'S OFFICE TO ARRANGE FOR OUTPATIENT PACEMAKER PLACEMENT. [phone] Discharge Med Rec/Prescriptions Prescriptions: New clopidogrel 75 mg Tablet 75 mg PO DAILY Qty: 30 RF: 0 Continued levothyroxine [Synthroid] 75 mcg tablet 75 mcg PO DAILY RF: 0 allopurinol 100 mg tablet 100 mg PO DAILY RF: 0 atorvastatin 40 mg tablet 40 mg PO DAILY RF: 0 magnesium 200 mg tablet 100 mg PO DAILY RF: 0 methylprednisolone [Medrol (Joce)] 4 mg tablets,dose pack See Rx Instructions PO PER PKG DIR Qty: 21 RF: 1 furosemide [Lasix] 40 mg Tablet 40 mg PO DAILY PRN (Reason: Edema) RF: 0 diazepam [Valium] 10 mg Tablet 10 mg PO PRN PRN (Reason: medical procedures) RF: 0 loratadine [Claritin] 10 mg Tablet 10 mg PO DAILY PRN (Reason: seasonal allergies) RF: 0 escitalopram oxalate [Lexapro] 10 mg Tablet 10 mg PO BEDTIME RF: 0 aspirin 81 mg Tablet,Delayed Release (Dr/Ec) 81 mg PO DAILY RF: 0 naproxen sodium [Aleve] 220 mg Capsule 2 tab PO DAILY PRN (Reason: pain) RF: 0 losartan 25 mg Tablet 25 mg PO BEDTIME RF: 0 fluticasone propionate [Flonase Allergy Relief] 50 mcg/actuation [place],Suspension 1 spr/day Intranasal DAILY PRN (Reason: Allergic Symptoms) RF: 0 hydrocodone-acetaminophen 5-325 mg Tablet See Rx Instructions .ROUTE .COMPLEX PRN (Reason: Pain, Severe (7-10)) Qty: 50 RF: 0 hydroxyzine pamoate 25 mg Capsule 25 mg PO Q4HR PRN (Reason: Nausea And Vomiting) Qty: 20 RF: 0 ondansetron HCl [Zofran] 4 mg tablet 4 mg PO .qh6 PRN (Reason: nausea and vomiting) Qty: 20 RF: 0 hydrocodone-acetaminophen [Massey] 5-325 mg tablet 1 tab PO Q4-6H PRN (Reason: pain) Qty: 50 RF: 0 Follow up/Referrals: Priti Hightower MD [Primary Care Provider] - Provider Discharge Instructions Diet: Diet as Tolerated and Low-sodium Activity: as tolerated Skin/Wound/Dressing Care Report to your healthcare provider any signs of infection, such as:: chills, fever Visit Report/Discharge Packet Instructions: Pacemaker Insertion, DI for Transient Ischemic Attack, Clopidogrel Discharge Data Primary Care Provider: Priti Hightower Attending Provider: Judson Castillo Admit Date/Time: 06/21/18 20:23 Discharges patient from system. Discharge Date/Time: 06/26/18 11:50
== END 2018-06-26 11:50 | disposition home or self-care (01) ==
LOC: ED 17:01 → AC 20:23
PROVIDERS: Internal Medicine; Admitting Provider Nurse Practitioner Adult Health; Emergency Provider Emergency Medicine; PCP Family Medicine; Visit Provider Nurse Practitioner Adult Health
DX: G45.9 Transient cerebral ischemic attack, unspecified (principal); R29.818 Other symptoms and signs involving the nervous system; I10 Essential (primary) hypertension; E66.01 Morbid (severe) obesity due to excess calories; R00.1 Bradycardia, unspecified; G45.1 Carotid artery syndrome (hemispheric); R32 Unspecified urinary incontinence; M10.9 Gout, unspecified; E03.9 Hypothyroidism, unspecified; I50.9 Heart failure, unspecified; I65.29 Occlusion and stenosis of unspecified carotid artery; G47.33 Obstructive sleep apnea (adult) (pediatric)
CPT/HCPCS: 36415; 70450; 70496; 70498; 70544; 70551; 80048; 80053; 80061; 81001; 82962; 83735; 84484; 85025; 85610; 85730; 87086; 93005; 93041; 93307; 96360; 96361; 97161; 97530; 99285; 99291; G0378; J1650; J2060; J3480; Q9967

== ENCOUNTER → 2018-12-17 12:34 | Outpatient (CLI) | payer MEDICARE, OTHER, SELFPAY ==
[2018-06-21 21:05] VITALS: BMI 45.6
[2018-12-17 13:12] LABS: Hematocrit 38.1 % (36-46); Hemoglobin 12.7 g/dL (12.0-16.0); Mean Corpuscular HGB Conc 33.4 % (30-36); Mean Corpuscular Hemoglobin 29.9 PG (26-34); Mean Corpuscular Volume 89.6 fL (80-100); Platelet Count 315 X10^3/uL (150-400); Red Blood Cell Count 4.25 X10^6/uL (4.0-5.2); Red Cell Distribution Width 13.4 % (11.6-14.8); White Blood Cell Count 7.8 X10^3/uL (4.5-11.0)
[2018-12-17 13:49] LABS: Blood Urea Nitrogen 26 mg/dL (7-17); Calcium 9.5 mg/dL (8.4-10.2); Carbon Dioxide 29 mmol/L (22-32); Chloride 103 mmol/L (98-107); Estimated Glomerular Filt Rate > 60.0 mL/min (>60); Glucose 96 mg/dL (80-110); HEMOLYSIS < 15 (0-50); Potassium 4.4 mmol/L (3.4-5.1); Sodium 141 mmol/L (137-145)
== END ==
PROVIDERS: PCP Family Medicine; Visit Provider Orthopaedic Surgery
DX: Z01.818 Encounter for other preprocedural examination (principal)
CPT/HCPCS: 36415; 80048; 85027; 93005; 93010

== ENCOUNTER 2018-12-30 10:01 | Inpatient (IN) | payer MEDICARE, OTHER, SELFPAY ==
[2018-06-21 21:05] VITALS: BMI 45.6
[2018-12-22 08:52] VITALS: BMI 41.7
[2018-12-30] VITALS (19 sets, daily range): BP systolic 112–166; BP diastolic 59–89; PULSE 60–63; RESP 5–18; TEMP 36–37.3; O2SAT 92–100; BMI 42.1
--- NOTE | 2018-12-30 | DI.RAD.S_ITS ---
PROCEDURE: XR CERVICAL SPINE 2V OR 3V INDICATIONS: C5-6 C6-7 ACDF TECHNIQUE: 2 view(s) of the cervical spine were acquired. COMPARISON: [facility], MR, MR CERVICAL SPINE WO CON, 01/25/2018, 15:06. [facility], CR, XR CERVICAL SPINE 2 OR 3 VIEWS, 05/01/2018, 10:40. FINDINGS: 2 intraoperative fluoroscopy images demonstrate discectomy at C5-C6 and C6-C7. Disc prostheses are noted in the intervertebral levels. IMPRESSION: Discectomy at C5-C6 and C6-C7. Dictated by: Jeanna Crowe M.D. on 12/30/2018 at 15:31 Approved by: Jeanna Crowe M.D. on 12/30/2018 at 15:33
--- NOTE | 2018-12-30 12:10 | P.OP_ITS ---
Operative Date/Time/Diagnoses Date of procedure: 12/30/18 Time of procedure: 14:25 Pre-op diagnosis: Cervical stenosis with myelopathy Post-op diagnosis: same Procedure & Clinicians Procedure: C5-6, C6-7 anterior diskectomy and artificial disc replacements Use of microscope Same procedure as scheduled: Yes Indications: [age] year old female with intractable pain from cervical myelopathy. They had failed conservative management and requested operative intervention. Risks and benefits of surgery were discussed and appropriate con sents were obtained. Surgeon: Rohan [employer] Infusion Specialist: Paula Driver Anesthesia Type: General Operative Notes Findings: None Closure Type: primary Specimen(s): none sent Prosthetic devices, grafts, tissues, transplants, or devices: Aquiles Mobi-C ADR Estimated Blood Loss (mL): 5 Procedure in detail: Patient was brought to the operating room and intubated on the table. A time-out was performed. Preoperative antibiotics were given. The neck was prepped and draped in the standard sterile fashion. Using a skin fold, we made a 3 cm oblique incision on the left side. We used Bovie to go through the platysma and then did a standard anterolateral blunt dissection down to the precervical fascia. Fascia was nicked and elevated up. A marker was placed and x-ray was taken for localization. We then subperiosteally elevated up the longus colli muscles. Self-retaining retractors were placed. Donnybrook pins were placed under x-ray guidance to be parallel to the endplates. We then brought in the microscope. A scalpel used to perform an annulotomy. We then used a combination of pituitaries and curettes and Kerrison to perform a complete anterior diskectomy at C6-7. We took down the PLL and used Kerrisons to remove any posterior disc material and osteophytes. At the end we could from the nerve hook cephalad caudally and out the foramen and everything was opened. We distracted open with the parallel carbon dioxide operator. We then used the horseshoes for sizing. We then used the trials. We then inserted a 15 x 15 x 5mm size Mobi-C artificial disc replacement under fluoroscopic guidance for positioning. The traction was released and x-ray was checked again. We then moved up to the C5-6 level. A scalpel used to perform an annulotomy. We then used a combination of pituitaries and curettes and Kerrison to perform a complete anterior diskectomy at C5-6. We took down the PLL and used Kerrison to remove any posterior disc material and osteophytes. At the end we could from the nerve hook cephalad caudally and out the foramen and everything was opened. We distracted open with the parallel carbon dioxide operator. We then used the horseshoes for sizing. We then used the trials. We then inserted a 15x 15 x 5mm size Mobi-C artificial disc replacement under fluoroscopic guidance for positioning. The traction was released and x-ray was checked again. The self-retaining retractors and Donnybrook pins were removed and final x-rays taken. The C6-7 level appeared to have angled down through the superior endplate of C7, but was still centered. On direct visualization it looked even in the endplates. As it was well fixed and centered and her bone was a little soft, I did not want to try to change positioning. The wound was irrigated. There was no bleeding. The carotid was beating nicely. The platysma was closed. The superficial was closed. The skin was closed. A sterile dressing was placed. They were then extubated and brought to recovery room with no complications. Complications: none Post-operative Condition: stable Disposition: PACU Plan for aftercare: Inpatient. Up with physical therapy. Overnight admission.
--- NOTE | 2018-12-30 12:10 | PM.PREOP ---
Pre-operative Note Interval Note History & Physical reviewed/Exam performed by Physician: Yes Changes to H&P: No
[2018-12-30] MEDS: CEFAZOLIN 2 GM/100 ML FROZ.PIGGY IV ×2 (12:51→20:15)
[2018-12-30] MEDS: ACETAMINOPHEN IV 1,000 MG/100 ML VIAL 400 MG IV (13:10)
--- NOTE | 2018-12-30 13:19 | SUR.OPER ---
Supine on padded OR bed, head on gel doughnut, towel roll perpendicular to spine at scapula , arm, padded and tucked at side, legs uncrossed, safety belt at thigh, tape over blanket over lower legs .
[2018-12-30] MEDS: THROMBIN (RECOMBINANT) 5,000 UNIT VIAL 5000 UNIT TOP (13:26)
[2018-12-30] MEDS: BUPIVACAINE 0.25% W/ EPI 30 ML VIAL 60 ML INJ (13:26)
[2018-12-30] MEDS: SODIUM CHLORIDE 0.9% 1,000 ML, GENTAMICIN 80 MG IRR (13:27)
[2018-12-30] MEDS: LACTATED RINGERS 1,000 ML 42 ML IV (15:00)
[2018-12-30] MEDS: hydrOXYzine 50 MG/ML INJ 25 MG IM (15:38)
--- NOTE | 2018-12-30 15:48 | SUR.PHASEI ---
Patient arrived in PACU somnolent. Aroused too noxious stimuli. Patient had difficulty following commands 2 to somnolence. LLE weaker than RLE. Gave IM for c/o pain. Paced. VSS.
[2018-12-30] MEDS: LACTATED RINGERS 1,000 ML 125 ML IV (16:52)
[2018-12-30] MEDS: HYDROCODONE/ACET 5/325 TABLET 2 TAB PO (20:11)
[2018-12-30] MEDS: ATORVASTATIN 20 MG TABLET 40 MG PO (20:11)
[2018-12-30] MEDS: SENNOSIDES 8.6 MG TABLET 17.2 MG PO (20:13)
[2018-12-30] MEDS: MAGNESIUM OXIDE 400 MG TABLET 100 MG PO (20:13)
[2018-12-30] MEDS: DOCUSATE 100 MG CAPSULE PO (20:13)
[2018-12-30] MEDS: LOSARTAN 25 MG TABLET PO (20:14)
[2018-12-30] MEDS: ESCITALOPRAM 10 MG TABLET PO (20:16)
[2018-12-30] MEDS: diazePAM 5 MG TABLET 10 MG PO (23:38)
--- NOTE | 2018-12-30 23:56 | PC.NURSE ---
Addendum entered by Haley Valentino R.N. 12/31/18 05:24: States she was able to sleep well but pain between scapula is again at 7/10; medicated with Vicodin. Original Note: Patient is alert and oriented. Breath sounds CTA with sat of 97%; on oxygen at 2L/min as has sleep apnea and not using CPAP. HRR. Denies nausea. BT present and is passing flatus. Reports urinary incontinence but also voiding on toilet; denies dysuria, frequency or urgency. Dressing to anterior neck is CDI; wearing soft cervical collar. Denies swallowing problems. CMS intact except for chronic neuropathy in bilateral feet which is unchanged from pre-op. Wearing bilateral foot SCD's. Able to move self in bed and is up to bathroom with walker and 1 assist. Complains of 7/10 pain in bilateral scapula; medicated with scheduled Valium and will provide Vicodin when next able to have; patient verbalizes understanding. Declines offer of ice pack. Fall risk score is moderate; states her legs sometimes give out. Bed alarm is activated.
[2018-12-31] MEDS: HYDROCODONE/ACET 5/325 TABLET 2 TAB PO ×2 (00:25→05:22)
[2018-12-31] MEDS: LACTATED RINGERS 1,000 ML 125 ML IV (00:27)
[2018-12-31 05:20] VITALS: BP 145/71; PULSE 60; RESP 18; TEMP 36.4; O2SAT 98
[2018-12-31] MEDS: CEFAZOLIN 2 GM/100 ML FROZ.PIGGY IV (05:20)
--- NOTE | 2018-12-31 06:02 | PM.PNPO.1 ---
Subjective Subjective Date Patient Seen: 12/31/18 Time Patient Seen: 06:02 Interval history: She is doing well. Pain is about a 6/10 in the neck and some in the left arm. No difficulty swallowing. Exam Vital Signs (past 8 hours): - 12/30/18 23:40 12/31/18 05:20 Temperature 99.1 F 97.5 F L Pulse Rate 63 60 Respiratory Rate 18 18 Blood Pressure 145/60 H 145/71 H Pulse Oximetry 97 98 Oxygen Delivery Method Nasal Cannula Oxygen Flow Rate 2 Const Orientation: alert and oriented x3 Back/Spine/Pelvis Other: CDI. 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 We will mobilize her this morning with physical therapy. If she is steady, plan for discharge home. Quality VTE Deep Vein Thrombosis/Pulmonary Embolism Present on Admission: No
[2018-12-31] MEDS: diazePAM 5 MG TABLET 10 MG PO (06:24)
[2018-12-31] MEDS: LEVOTHYROXINE 75 MCG TABLET PO (06:24)
[2018-12-31 08:25] VITALS: BP 119/92; PULSE 61; RESP 16; TEMP 36.5; O2SAT 97
[2018-12-31] MEDS: ONDANSETRON 4 MG/2 ML INJ IV (09:10)
--- NOTE | 2018-12-31 10:01 | PT.IIE ---
Current Diagnoses Spinal stenosis, cervical region (12/30/18) Other cervical disc degeneration, unspecified cervical region (12/30/18) Surgery Performed Operation Date: 12/30/18 12:45 Actual Procedures p C56 & C67 anterior discectomy and artificial disc replacement - Rohan Steel MD Surgical History (Last Updated 12/22/18 @ 09:00 by Roxanna Maldonado RN) History of ankle surgery (Acute) History of bilateral cataract extraction (Acute) History of bladder repair surgery (Acute) History of carpal tunnel release (Acute) History of lumbar fusion (Acute 10/29/17) History of partial hysterectomy (Acute) Hx of abdominoplasty (Acute) Hx of bilateral breast reduction surgery (Acute) Hx of BSO (bilateral salpingo-oophorectomy) (Acute) Hx of vitrectomy (Acute) Medical History (Last Updated 12/22/18 @ 09:04 by Roxanna Maldonado RN) Achilles tendon injury (Acute) Anxiety (Acute) Arthritis (Acute) Atypical chest pain (Acute) Carotid artery stenosis (Acute) CHF (congestive heart failure) (Acute) Chronic back pain (Acute) Chronic neck pain (Acute) Eczema (Acute) Edema extremities (Acute) Fatty liver disease, nonalcoholic (Acute) Fibromyalgia (Acute) Fusion of lumbar spine (Acute) Gout (Acute) Heart murmur (Acute) HTN (hypertension) (Acute) Hyperlipidemia (Acute) Hypothyroid (Acute) IBS (irritable bowel syndrome) (Acute) Kidney stones (Acute) Lipoma (Acute) LVH (left ventricular hypertrophy) (Acute) Migraines (Acute) Mosquito bite (Acute) Pacemaker (Acute 07/02/18) Perforated ear drum (Acute) Seasonal allergies (Acute) Sleep apnea with use of continuous positive airway pressure (CPAP) (Acute) TIA (transient ischemic attack) (Acute) Venous insufficiency (Acute) Physical Therapy Inpatient Evaluation/Re-Eval M1 PT/OT-IP Prior Functional Status Start: 12/31/18 08:14 Freq: NEEDED Status: Active Protocol: Document 12/31/18 08:35 HH (Rec: 12/31/18 10:00 [email or web address]) Medical Review Prior Functional Status Medical History Reviewed Yes Diet/Fluid Consistency Regular Communication No deficits noted. Able to make needs known Mobility and Gait Pt stated she was independent for home and community mobility. She does use a SPC for community mobility due to impaired balance. Pt did fall twice within the past 6 months . Activities of Daily Living and IADL's independent with ADLs and IADLs. She c/o dropping things out of her hands occasionally due to her neck and arm pain. She also stated she has difficulties bending over to parts picker things /put socks on. Social History Household Members spouse Living Arrangements House Number of Floors (Floors) One Floor Number of Stairs To Enter/Railing? 2 WENDY without railigns, has a bench on the side for support Home Environment Standard Height Toilet,Walk in Shower Home Equipment Straight Cane,Shower Seat with Backrest,Hand Held Shower, Data Management Specialist,Sock Aid,Grab Bars In Shower Employment Status Retired Additional Social History Comment Pt lives with her in [facility] who is a very active , independent and able to assist pt as needed after d/c. Pt has no children but do have lots of friends from jew/ neighbors to support if needed. Pt has peripheral neuropathy whose feets are very sensitive to touch/ pressure. Pt usually wears sandals at all times. M2 PT-IP Current Condition Start: 12/31/18 08:14 Freq: NEEDED Status: Active Protocol: Document 12/31/18 08:35 (Rec: 12/31/18 10:00 [email or web address]) Physical Therapy Current Condition Current Condition Evaluation Date 12/31/18 Treatment Diagnosis C5-C7 ant diskectomy and artificial disk replacement Onset Date 12/30/18 Precautions Cervical Spine Precautions Soft Collar for Comfort,Rigid Collar,No Heavy Lifting,Log Roll Weight Bearing Status Weight Bearing Status Weight Bear as Tolerated M3 PT-IP Subjective Start: 12/31/18 08:14 Freq: NEEDED Status: Active Protocol: Document 12/31/18 08:35 HH (Rec: 12/31/18 10:00 [email or web address]) Subjective Physical Therapy Visit Type Type Initial Evaluation Visit Start Time 08:35 Visit Stop Time 08:55 Total Visit Minutes 20 Notes Pt had medication about 2 hours ago but c/o nauseated, drowzy and dizzy Number of HIGH SCHOOL LIBRARY MEDIA SPECIALIST Visits 0 Physical Therapy Visit Comments Patient Comments Pt agreeable to mobilize with PT Patient Goals to return home with Therapy Pain Assessment Pain Present Pain Present Denied Pain M4 PT-IP Mobility and Gait Start: 12/31/18 08:14 Freq: NEEDED Status: Active Protocol: Document 12/31/18 08:35 (Rec: 12/31/18 10:00 [email or web address]) PT-Bed Mobility Assessment Scooting Scooting to Edge of Bed Standby Assistance PT-Transfer Assessment Sit to and From Stand Sit to and from Stand Standby Assistance,Use of Upper Extremities Equipment Transfer Assistive Device Gait Belt,Front Wheeled Walker Orthotic/Prosthetic Devices or Brace: Yes Transfers Transfer Destination Bed,Chair Transfer Technique Stand Step Pivot Transfer Ability Level of Assist Standby Assistance,Use of Upper Extremities Comments Mobility Comments BP during eval= 120s/60s HR= 60s SpO2 = 90-94%. Pt was up at EOB upon assessment. Pt recalled all 3 post op precautions and stated she did log roll method for bed mobility. Pt appears to be very drowsy but able to answer questions regarding PLOF and social hx. Pt was able to stand up with FWW and SBA. She then c/o nauseated and dizzy , and requested to sit down by using stand step pivot transfer to bedside chair. Pt was steady and had good safety awareness. Roshni VSS is stable, she requested to rest at this point due to nausea. Notified AMY Vasquez and placed call light within reach. Gait Assessment Comments Gait Comments unable to assess Stair Climbing Assessment Comments Stair Climbing Comments unable to assess PT-Balance Assessment Sitting Balance and Reactions Static Sitting Balance Ability Normal Dynamic Sitting Balance Ability Normal Standing Balance and Reactions Static Standing Balance Ability Normal Dynamic Standing Balance Ability Normal Device Used FWW M5 PT-IP Objective Assessments Start: 12/31/18 08:14 Freq: NEEDED Status: Active Protocol: Document 12/31/18 08:35 (Rec: 12/31/18 10:00 [email or web address]) Orientation Orientation/Cognition Level of Alertness Alert Orientation Name,Age,Birthday,Month,Date, Year,Day of Week,Place, Situation Language Function Ability No Deficits Noted Safety Awareness Understands Safety Issues Memory Description No Deficits Noted Comments Pt appears very drowsy upon assessment Gross Range of Motion Upper Extremity ROM Assessment Within Functional Limits Impairments able to reach back of her head and overhead. Lower Extremity ROM Assessment Within Functional Limits Strength Upper Extremity Strength Assessment Bilaterally Impaired Shoulder 4-/5 Wrist 4-/5 Hand 4-/5 Lower Extremity Strength Assessment Within Functional Limits Coordination Assessment Gross Coordination Gross Coordination WNL M6 PT-IP Treatment Start: 12/31/18 08:14 Freq: NEEDED Status: Active Protocol: Document 12/31/18 08:35 HH (Rec: 12/31/18 10:00 [email or web address]) Physical Therapy Treatment Exercises Exercises Ankle Pumps,Quad Sets Education Education Provided Precautions,Weight Bearing Status,Post-Op Packet,Safety M7 PT-IP Assessment and Plan Start: 12/31/18 08:14 Freq: NEEDED Status: Active Protocol: Document 12/31/18 08:35 HH (Rec: 12/31/18 10:00 [email or web address]) PT Summary Assessment and Plan Potential Rehabilitation Potential Excellent Status of Condition at Evaluation Stable Summary Impairments Pain,ROM,Strength,Balance,Bed Mobility,Transfers,Gait, Activity Tolerance Assessment Summary Pt is a low complexity POD #2 C5-C7 anterior diskectomy and artificial disc replacement. Upon assessment, pt appears very drowsy, nauseated and dizzy possibly due to medication. Pt's VSS was stable but she was only able to tolerate bed to chair transfer due to dizziness. Pt also has 2 steps to enter her home without railings. Pt will have to reach rehab goals before d/c home with 's assistance. Goals Bed Mobility Goal Independent Transfer Goal Independent,Front Wheeled Walker Gait Goal Independent,Front Wheel Walker Gait Distance 150 Other Goals climb 2 WENDY without rails (SBA ) Days to Meet Goals 5 Frequency of Treatment Frequency Of Treatment Twice a Day Treatment Plan Physical Therapy Treatment Plan Bed Mobility Training,Transfer Training,Gait Training, Therapeutic Exercise,Balance Retraining,Post Op Education, Discharge Planning,Hot or Cold Pack,Neuromuscular Re-ed Other Recommendations and Next Treatment review precautions Focus log roll stair climbing if possible kahlil and doff collar Recommendations To Nursing Amount of Assist Needed 1 Person Assist Discharge Recommendations PT Discharge Recommendations Home with Assistance
[2018-12-31] MEDS: hydroCHLOROthiazide 12.5 MG CAPSULE PO (10:15)
[2018-12-31] MEDS: ALLOPURINOL 100 MG TABLET PO (10:15)
[2018-12-31] MEDS: ASPIRIN EC 81 MG TABLET PO (10:15)
[2018-12-31] MEDS: NAPROXEN 250 MG TABLET 500 MG PO (10:15)
[2018-12-31] MEDS: DOCUSATE 100 MG CAPSULE PO (10:16)
[2018-12-31 11:20] VITALS: BP 126/55; PULSE 60; RESP 18; TEMP 36.5; O2SAT 96
--- NOTE | 2018-12-31 13:54 | OT.IP.EVAL ---
Current Diagnoses Spinal stenosis, cervical region (12/30/18) Other cervical disc degeneration, unspecified cervical region (12/30/18) Surgery Performed Operation Date: 12/30/18 12:45 Actual Procedures p C56 & C67 anterior discectomy and artificial disc replacement - Rohan Steel MD Past Medical History (Last Updated 12/22/18 @ 09:04 by Roxanna Maldonado, RN) Achilles tendon injury (Acute) Anxiety (Acute) Arthritis (Acute) Atypical chest pain (Acute) Carotid artery stenosis (Acute) CHF (congestive heart failure) (Acute) Chronic back pain (Acute) Chronic neck pain (Acute) Eczema (Acute) Edema extremities (Acute) Fatty liver disease, nonalcoholic (Acute) Fibromyalgia (Acute) Fusion of lumbar spine (Acute) Gout (Acute) Heart murmur (Acute) HTN (hypertension) (Acute) Hyperlipidemia (Acute) Hypothyroid (Acute) IBS (irritable bowel syndrome) (Acute) Kidney stones (Acute) Lipoma (Acute) LVH (left ventricular hypertrophy) (Acute) Migraines (Acute) Mosquito bite (Acute) Pacemaker (Acute 07/02/18) Perforated ear drum (Acute) Seasonal allergies (Acute) Sleep apnea with use of continuous positive airway pressure (CPAP) (Acute) TIA (transient ischemic attack) (Acute) Venous insufficiency (Acute) Surgical History (Last Updated 12/22/18 @ 09:00 by Roxanna Maldonado, AMY) History of ankle surgery (Acute) History of bilateral cataract extraction (Acute) History of bladder repair surgery (Acute) History of carpal tunnel release (Acute) History of lumbar fusion (Acute 10/29/17) History of partial hysterectomy (Acute) Hx of abdominoplasty (Acute) Hx of bilateral breast reduction surgery (Acute) Hx of BSO (bilateral salpingo-oophorectomy) (Acute) Hx of vitrectomy (Acute) Occupational Therapy Inpatient Evaluation/Re-Eval M2 OT-IP Current Condition Start: 12/31/18 13:20 Freq: Status: Active Protocol: Document 12/31/18 13:21 [facility] (Rec: 12/31/18 13:54 [facility] [id number]) Occupational Therapy Current Condition Current Condition Evaluation Date 12/31/18 Treatment Diagnosis cervical stenosis with myelopathy, s/p C5-6, C6-7 ant . distectomy Diagnosis Onset Date 12/30/18 Post Operative Precautions Cervical Spine Precautions Soft Collar for Comfort,No Heavy Lifting,Log Roll Weight Bearing Status Weight Bearing Status Weight Bear as Tolerated M3 OT- IP Subjective and Pain Start: 12/31/18 13:20 Freq: Status: Active Protocol: Document 12/31/18 13:21 [facility] (Rec: 12/31/18 13:54 [facility] [id number]) OT- Subjective Occupational Therapy Visit Type Type Initial Evaluation Visit Start Time 11:45 Visit Stop Time 12:24 Total Visit Minutes 39 Occupational Therapy Visit Comments Patient Comments Pt very nauseous but still willing to get up to try to do caregiver training with and shower. Patient/Caregiver Goals To go home. OT Pain Assessment Pain When Pain Assessed At Rest Pain Present Pain Present Denied Pain M4 OT- IP ADL's Start: 12/31/18 13:20 Freq: Status: Active Protocol: Document 12/31/18 13:21 [facility] (Rec: 12/31/18 13:54 [facility] [id number]) OT ADL-Grooming Comments OT Grooming Comments Educated to bend at hips to spit into the sink or spit into a cup when brushing her teeth. OT ADL-Dressing General Eval Upper Body Dressing Ability Standby Assistance Lower Body Dressing Ability Minimal Assistance Areas Needing Assistance Underpants/Brief,Pants/Shorts Comments OT Dressing Comments Set-up for button front shirt. Pt needing assist to kahlil right leg into brief, and CGA for balance while pulling up brief pants over her hips. Pt states has commodity loan clerk at home to use and did not want to practice at this time. In addition, pt's able to assist. Recommended to wear brief at night. OT ADL-Toileting General Evaluation Toileting Ability Standby Assistance Comments OT Toileting Comments Recommended to stand to wipe and use of briefs. Initially best to have assist pt in the bathroom for needs. OT ADL-Bathing Bathing Type Bathing Type Shower General Evaluation Bathing Ability Minimal Assistance Areas Needing Assistance Wash/Dry Back,Wash/Dry Lower Extremities Devices Bathing Equipment Shower Chair with Arms Comments OT Bathing Comments Pt just needing assist to wash her back and CGA while standing to do pericare needs. Pt heavily relies on grab bars while standing. Pt's able to assist pt with good safety in the shower. M5 OT- IP IADL's Start: 12/31/18 13:20 Freq: Status: Active Protocol: Document 12/31/18 13:21 [facility] (Rec: 12/31/18 13:54 [facility] [id number]) OT-Instrumental Activities of Daily Living Home Safety Awareness Ability to Problem Solve Emergency Able to Problem Solve Situations Home Safety Comments Pt's to assist at home . M6 OT- IP Functional Cognition Start: 12/31/18 13:20 Freq: Status: Active Protocol: Document 12/31/18 13:21 [facility] (Rec: 12/31/18 13:54 [facility] [id number]) Cognitive Factors Limiting Selfcare Function Cognitive Ability Level of Alertness Alert Patient Orientation Name,Age,Birthday,Month,Date, Year,Day of Week,Place, Situation Attention Span Ability Capable of Focused Attention, Capable of Sustained Attention Ability to Follow Commands Able to Follow Multi-Step Commands Memory Description Short Term Impaired Safety Awareness Decreased Ability to Apply Precautions,Underestimates Need for Assistance Cognitive Comments Cognitive Assessment Comments Pt needing reminders to slow down and be careful not to twist her head and keep FWW in front of her at all times. Pt and both needing reminders to communicate with each only as to needs and what is being done. OT- Vision and Hearing OT- Hearing Assessment OT- Hearing Assessment WFL OT- Vision Assessment Visual Acuity Glasses All The Time M7 OT- IP Mobility and Balance Start: 12/31/18 13:20 Freq: Status: Active Protocol: Document 12/31/18 13:21 [facility] (Rec: 12/31/18 13:54 [facility] [id number]) OT- Bed Mobility Assessment Rolling Type of Rolling Roll to Left Supine to Sit Supine to Sit Assist Standby Assistance,Contact Guard Assistance Sit to Supine Sit to Supine Assist Standby Assistance Scooting Scooting to Edge of Bed Standby Assistance OT-Transfer Assessment Sit to and From Stand Sit to and from Stand Standby Assistance,Contact Guard Assistance Transfers Transfer Ability Standby Assistance,Contact Guard Assistance Technique Transfer Destination Bed,Chair,Shower Stall,Toilet Transfer Technique Stand Step Pivot Devices Transfer Assistive Devices Gait Belt,Front Wheeled Walker Comments Mobility Comments Pt's initially trying to help too much for bed mobility and trying to have her grab his arm to get up from the bed. After training for log rolling, pt able to do with SBA. Emphasized best to only assist pt as she needs it. OT- Gait Assessment Gait Gait Assistance Required: Standby Assistance,1 Person Assist Comments Gait Ability Comments SBA in the room with FWW, occasional CGA for uneven surfaces and to step over threshold of the shower. OT- Balance Assessment Sitting Balance and Reactions Static Sitting Balance Ability Normal Dynamic Sitting Balance Ability Normal Standing Balance and Reactions Static Standing Balance Ability Good Dynamic Standing Balance Ability Fair M8 OT- IP Objective Assessments Start: 12/31/18 13:20 Freq: Status: Active Protocol: Document 12/31/18 13:21 [facility] (Rec: 12/31/18 13:54 [facility] [id number]) OT Gross Range of Motion Upper Extremity Range of Motion Assessment Within Functional Limits OT Strength Upper Extremity Strength Assessment Within Functional Limits M9 OT- IP Assessment and Plan Start: 12/31/18 13:20 Freq: Status: Active Protocol: Document 12/31/18 13:21 [facility] (Rec: 12/31/18 13:54 [facility] [id number]) OT Summary Assessment and Plan Potential Rehabilitation Potential Excellent Analytic Complexity at Evaluation Low Summary OT Impairments Functional Mobility,Dressing, Toileting,Bathing Progress Towards Goals Progressing Toward Goals Assessment Summary Pt low complexity and main barrier is steps and now needing assist for dressing and showering needs. Pt's present for family training and independent and with good safety to assist pt for all ADl and functional mobility needs. Pt looking to go home today. Goals Patient/Caregiver Education Goal Demonstrate Post-Op Precautions,Caregiver Independent Assisting Patient Days to Meet Goals 1 Frequency of Treatment Frequency Of Treatment Once a Day Treatment Plan OT Treatment Plan Patient/Family Education, Discharge Planning Discharge Recommendations OT Discharge Recommendations Home with Assistance
--- NOTE | 2018-12-31 14:20 | PT.IPTN ---
Current Diagnoses Spinal stenosis, cervical region (12/30/18) Other cervical disc degeneration, unspecified cervical region (12/30/18) Surgery Performed Operation Date: 12/30/18 12:45 Actual Procedures p C56 & C67 anterior discectomy and artificial disc replacement - Rohan Steel MD Physical Therapy Treatment Note M2 PT-IP Current Condition Start: 12/31/18 08:14 Freq: NEEDED Status: Discharge Protocol: Document 12/31/18 08:35 [facility] (Rec: 12/31/18 10:00 [id number]) Physical Therapy Current Condition Current Condition Evaluation Date 12/31/18 Treatment Diagnosis C5-C7 ant diskectomy and artificial disk replacement Onset Date 12/30/18 Precautions Cervical Spine Precautions Soft Collar for Comfort,Rigid Collar,No Heavy Lifting,Log Roll Weight Bearing Status Weight Bearing Status Weight Bear as Tolerated M3 PT-IP Subjective Start: 12/31/18 08:14 Freq: NEEDED Status: Discharge Protocol: Document 12/31/18 14:20 [facility] (Rec: 12/31/18 16:18 [facility] [id number]) Subjective Physical Therapy Visit Type Type Treatment Note Visit Start Time 14:00 Visit Stop Time 14:20 Total Visit Minutes 20 Number of SALES ORDER SPECIALIST Visits 1 Physical Therapy Visit Comments Patient Comments Pt states she feels better. M4 PT-IP Mobility and Gait Start: 12/31/18 08:14 Freq: NEEDED Status: Discharge Protocol: Document 12/31/18 14:20 [facility] (Rec: 12/31/18 16:18 [facility] [id number]) PT-Transfer Assessment Sit to and From Stand Sit to and from Stand Standby Assistance,Use of Upper Extremities Equipment Transfer Assistive Device Gait Belt,Front Wheeled Walker Orthotic/Prosthetic Devices or Brace: Yes Transfers Transfer Destination Chair Transfer Ability Level of Assist Standby Assistance,Use of Upper Extremities Gait Assessment Gait Gait Assistance Required: Standby Assistance,Contact Guard Assist Distance (Feet) 100 Assistive Devices Assistive Device Gait Belt,Straight Cane,Front Wheeled Walker Orthotic/Prosthetic Devices or Brace: Yes Gait Deviations General Gait Pattern Antalgic Factors Limiting Gait Function Factors Limiting Gait Function Pain,Poor Balance Comments Gait Comments ambulated 50 feet with FWW with SBA and then 50 with SPC with CGA Stair Climbing Assessment Evaluation Level of Assist On Stairs Minimal Assistance Devices Stair Climbing Assistive Devices Straight Cane Technique/Endurance Stair Climbing Direction Ascend and Descend Stair Climbing Technique Step to Step Number of Steps Climbed 3 Stair Climbing Set # Repetitions (reps) 1 M5 PT-IP Objective Assessments Start: 12/31/18 08:14 Freq: NEEDED Status: Discharge Protocol: Document 12/31/18 08:35 (Rec: 12/31/18 10:00 [id number]) Orientation Orientation/Cognition Level of Alertness Alert Orientation Name,Age,Birthday,Month,Date, Year,Day of Week,Place, Situation Language Function Ability No Deficits Noted Safety Awareness Understands Safety Issues Memory Description No Deficits Noted Comments Pt appears very drowsy upon assessment Gross Range of Motion Upper Extremity ROM Assessment Within Functional Limits Impairments able to reach back of her head and overhead. Lower Extremity ROM Assessment Within Functional Limits Strength Upper Extremity Strength Assessment Bilaterally Impaired Shoulder 4-/5 Wrist 4-/5 Hand 4-/5 Lower Extremity Strength Assessment Within Functional Limits Coordination Assessment Gross Coordination Gross Coordination WNL M6 PT-IP Treatment Start: 12/31/18 08:14 Freq: NEEDED Status: Discharge Protocol: Document 12/31/18 08:35 (Rec: 12/31/18 10:00 [id number]) Physical Therapy Treatment Exercises Exercises Ankle Pumps,Quad Sets Education Education Provided Precautions,Weight Bearing Status,Post-Op Packet,Safety M7 PT-IP Assessment and Plan Start: 12/31/18 08:14 Freq: NEEDED Status: Discharge Protocol: Document 12/31/18 14:20 [facility] (Rec: 12/31/18 16:18 [facility] [id number]) PT Summary Assessment and Plan Summary Assessment Summary Pt improving with mobility. She was able to progress gait distance. She was safe and stable with stair mobility. Pt safe for home D/C. Frequency of Treatment Frequency Of Treatment Twice a Day Treatment Plan Physical Therapy Treatment Plan Bed Mobility Training,Transfer Training,Gait Training, Therapeutic Exercise,Balance Retraining,Post Op Education, Discharge Planning,Hot or Cold Pack,Neuromuscular Re-ed Recommendations To Nursing Amount of Assist Needed 1 Person Assist Discharge Recommendations PT Discharge Recommendations Home with Assistance
--- NOTE | 2018-12-31 14:29 | CM.DANOTE ---
DCP Assessment: EMR reviewed: pt is a 68 yr old female who was admitted for Surgical repair of cervical myelopathy preformed by surgeon Dr. Rohan steel. PCP Dr.Lauren Hightower. RN met with pt and family at bedside. Pt stated she was feeling nauseated and receiving medication to help. Pt states she is completely I with ADL's at baseline and has had PT evaluation. Pt has shower chair and cane at home to assist with mobility and showering during recovery and has very supportive family unit to help with recovery. Pt , Major Restrepo plans to assist pt with recovery process at home. Insurance: 1st payer: Medicare 2nd payer. for Life. Plan: D/c home with assistance once pt nausea is controlled and pt is stable. F/u with pt -possible d/c tonight 12/31/18 vs tomorrow 01/01/19 depending on nausea and pt stability . Adela Sampson RN DMDischarge Planning/Care Management CM Discharge Assessment Start: 12/31/18 14:20 Freq: Status: Active Protocol: Document 12/31/18 14:20 HS (Rec: 12/31/18 14:29 HS [id number]) Discharge Planning Assessment Assigned Site Physician Adela Sampson RN DPOA/Assigned Designee Name Major Restrepo () Contact Information [phone] Advance Directives? Yes: DPOA Advance Directives on File No History Provided By Patient,Family Member,Medical Record Has Patient been admitted in last 30 No days? Prior Living Arrangements House Household Members spouse Type of transporation used prior to Drives own vehicle admit Independent with ADL's Yes Is patient alert and oriented? Yes Caregiver for Another No DME Already Rented / Owned Bath Bench,Cane Barriers to Discharge No Discharge Plan Home Transportation Arrangement Spouse, or daughter Whiteboard Updated in Patient Room with Yes name and ext. # of Site Physician Review Status In Process Next Review Type Continued Stay Review Pre-Anesthesia Assessment Start: 12/22/18 08:52 Freq: Status: Complete Protocol: Document 12/22/18 08:52 CAB (Rec: 12/22/18 09:55 CAB [id number]) Pre-Anesthesia Assessment Patient Also Known As (AKA) Denisha Patient Information Reviewed Via Phone Assessment Assessment Completed With Patient Diagnostic Results BMP/CMP,CBC,EKG Comment Labs/EKG at 12/17/18 Primary Care Provider Priti Hightower Seen Specialist in Last 12 Months Yes Specialist Seen Oxyhydrogen Welder,Pan Greaser, Orthopedist,Travel Administrator, Other Comment Neurology Primary Language Emirati Preferred Language Emir[place] Wire Coiler Machine Operator Required No Height 154.94 cm Weight 100.244 kg Body Mass Index (BMI) 41.7 Hearing Ability Normal Visual Assist Glasses Dentition Type Teeth, Natural Present Barriers to Learning None Other Aids No Hx Anesthesia Reactions No Hx Family Anesthesia Reaction No Hx Malignant Hyperthermia No Hx Blood Transfusions No Hx Blood Transfusion Reaction No Anesthesia Review Requested No Diamond Wheel Edger No alcohol intake never Smoking Status Never smoker Substance Use Type does not use Pain Present Pain Reported Musculoskeletal Symptoms Abnormal Gait,Back Pain, Difficulty Walking,Neck Pain, Radiating Pain into Limb, Tingling History of Falling (Recent or History of Yes ) Patient is completely paralyzed or No completely immobile Prosthesis or Orthotic Device Cane Mental Status Oriented to own ability Is patient on oxygen? No Does patient have BRISCOE/SOB Yes Hx Sleep Apnea Yes CPAP/BIPAP use prescribed and used routinely Currently Taking a Beta Monster No Can You Climb a Flight of Stairs Without No SOB Hx Chest Pain Yes: Atypical chest pain Hx SOB Yes Hx Syncope or Dizziness Yes: Occasional dizziness Anti-Coagulant Therapy Yes: ASA 81mg/daily Has a Oxyhydrogen Welder Yes: Dr. 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 No: Magnet ok, if prone position, reprogramming is required Cardiac Clearance Received Yes Comment Cardiac records scanned to record Diet Type At Home Ketogenic,Low Carb dysphagia Yes: Occasionally, I choke on my saliva Bladder Pattern Frequency,Incontinent,Nocturia ,Urgency Urinary Catheter Present No Hx Urinary Self Catheterization No Diabetes No Patient No Lactating No Hx Drug Resistant Organism No Presence of External or Internal Medical Yes: Pacemaker, CPAP, lumbar Devices hardware Have you traveled outside the [facility] States in the last 30 days? Marital Status Lives With spouse Prior Living Arrangements House Number of Floors (Floors) One Floor Support System Child/Children,Joy/God, Spouse Patient Discharge Plan Description Return Home Feels Safe in Current Environment Yes Been Physically Hurt or Threatened By a No Person in Current Environment Do you have thoughts of harming yourself None or others? Are you currently considering suicide? No Do you have a plan to hurt yourself or No Plan others? Do You Have Any Spiritual Beliefs That No May Affect Your HC Choices? Do You Have Any Cultural Practices That No May Affect Your HC Choices? Spiritual Referral None Comment Adventism Who Can We Speak to About Patient's Care Family, friends Identifying Code for Release of Patient Declines to issue Information Health Care Proxy/Next of Kin Major Restrepo () Health Care Proxy or [phone] Emergency Contact Name Major Restrepo (), Wendy (daughter) Emergency Contact Phone Number Major: [phone] or Wendy: Advance Directives? Yes: DPOA Advance Directives on File No Power of Dairy Consultant Yes PAC Instructions Bring CPAP/BIPAP,Durable medical equipment,Medications to take/avoid,Nasal antibiotic ,No ETOH/petroleum product on skin DOS,NPO,Post-op transportation,Pre-surgical wash,Sturdy shoes/comfortable clothes,Do not bring valuables and remove jewelry
[2018-12-31] MEDS: hydrOXYzine pamoate 25 MG CAPSULE PO (15:31)
[2018-12-31] MEDS: HYDROCODONE/ACET 5/325 TABLET 1 TAB PO (15:31)
== END 2018-12-31 15:34 | disposition home or self-care (01) | DRG 518 ==
PROVIDERS: Admitting Provider Orthopaedic Surgery; PCP Family Medicine; Visit Provider Orthopaedic Surgery
PROC: 0RR30JZ Replacement of Cervical Vertebral Disc with Synthetic Substitute, Open Approach (ICD-10-PCS; principal; 2018-12-30 12:45)
DX: M48.02 Spinal stenosis, cervical region (principal); M47.12 Other spondylosis with myelopathy, cervical region; Z68.41 Body mass index [BMI] 40.0-44.9, adult; E66.01 Morbid (severe) obesity due to excess calories
CPT/HCPCS: 72040; 76000; 94760; 97161; 97165; 97530; 97535; C1776; J0131; J0690; J1100; J2250; J2405; J2704; J3010; J3410

== ENCOUNTER → 2019-06-15 12:15 | Outpatient (CLI) | payer MEDICARE, OTHER, SELFPAY ==
[2018-12-30 16:32] VITALS: BMI 42.1
--- NOTE | 2019-06-15 | DI.MG.S_ITS ---
BILATERAL DIGITAL DIAGNOSTIC MAMMOGRAM 3D/2D: 06/15/2019 CLINICAL: Abnormal mammogram. Comparison is made to exams dated: 11/26/2017 mammogram, 05/23/2017 mammogram - [facility], 03/14/2017 mammogram, 03/08/2016 mammogram - [facility], and 11/26/2017 [facility]. The tissue of both breasts is predominantly fatty. Subcentimeter grouped heterogeneous calcifications in the left breast at 3 o'clock middle depth are stable since 03/14/2017. Circumscribed subcentimeter cyst in the lateral right breast. No significant masses, calcifications, or other findings are seen in either breast. IMPRESSION: Grouped heterogeneous calcifications in the left breast are stable since 03/14/2017 and are benign. There is no mammographic evidence of malignancy. Exam findings and recommendation were conveyed to the patient by the Marketing Sales Consultant. Return to annual mammogram screening schedule is recommended. This exam was interpreted at Station ID: [id number]. NOTE: For mammograms, a report in lay terms will be sent to the patient. Approximately 15% of breast malignancies will not be visualized mammographically. In the management of a palpable breast mass, a negative mammogram must not discourage biopsy of a clinically suspicious lesion. Electronically Signed By: Donovan Calvillo M.D. slc/:06/15/2019 16:55:03 letter sent: Normal Exam ACR BI-RADS Category 2: Benign Finding(s) [id number]
== END ==
PROVIDERS: PCP Family Medicine; Referring Provider Family Medicine; Visit Provider Family Medicine
DX: R92.1 Mammographic calcification found on diagnostic imaging of breast (principal)
CPT/HCPCS: 77066; G0279

== ENCOUNTER → 2019-12-16 12:43 | Outpatient (CLI) | payer MEDICARE, OTHER, SELFPAY ==
[2018-12-30 16:32] VITALS: BMI 42.1
== END ==
PROVIDERS: PCP Internal Medicine; Referring Provider Internal Medicine; Visit Provider Internal Medicine
DX: M81.0 Age-related osteoporosis without current pathological fracture (principal); Z78.0 Asymptomatic menopausal state; E07.9 Disorder of thyroid, unspecified; Z90.722 Acquired absence of ovaries, bilateral; Z82.62 Family history of osteoporosis
CPT/HCPCS: 77080

== ENCOUNTER → 2020-07-11 16:17 | Outpatient (CLI) | payer MEDICARE, OTHER, SELFPAY ==
[2018-12-30 16:32] VITALS: BMI 42.1
== END ==
PROVIDERS: PCP Internal Medicine; Referring Provider Internal Medicine; Visit Provider Internal Medicine
DX: Z12.31 Encounter for screening mammogram for malignant neoplasm of breast (principal); Z53.9 Procedure and treatment not carried out, unspecified reason

== ENCOUNTER → 2020-07-27 13:02 | Outpatient (CLI) | payer MEDICARE, OTHER, SELFPAY ==
[2018-12-30 16:32] VITALS: BMI 42.1
--- NOTE | 2020-07-27 | DI.US.S_ITS ---
LIMITED ULTRASOUND OF LEFT BREAST: 07/27/2020 CLINICAL: Focal left breast pain. Comparison is made to exams dated: 07/27/2020 mammogram, 06/15/2019 mammogram, 11/26/2017 ultrasound, 11/26/2017 mammogram, 05/23/2017 mammogram - [facility], and 03/14/2017 mammogram - [facility]. Real-time ultrasound of the left breast 12 o'clock region was performed. Muse scale images of the real-time examination were reviewed. No significant abnormalities were seen sonographically in the left breast. Specifically, no finding to explain the patient's pain. IMPRESSION: NEGATIVE There is no sonographic correlate to the patient's focal left breast pain and no evidence of malignancy. Return to annual mammogram screening schedule is recommended. Findings and recommendations were conveyed to the patient at time of exam. This exam was interpreted at Station ID: [id number]. Electronically Signed By: Eboni yates/:07/27/2020 14:43:32 letter sent: Normal Exam Ultrasound BI-RADS: 1 Negative
--- NOTE | 2020-07-27 | DI.US.S_ITS ---
LIMITED ULTRASOUND OF RIGHT BREAST: 07/27/2020 CLINICAL: Palpable right breast lump. Comparison is made to exams dated: 07/27/2020 mammogram, 06/15/2019 mammogram - [facility], 03/14/2017 mammogram, and 03/08/2016 mammogram - [facility] [place]. Color flow and real-time ultrasound of the right breast 6 o'clock region were performed. Muse scale images of the real-time examination were reviewed. There is a 1.1 cm x 0.7 cm x 0.6 cm oval cyst in the inframammary fold of the right breast at 5 o'clock. This oval cyst is uniformly hypoechoic. There is a visible tract connecting it to the skin surface. This correlates as palpated and with mammography findings. Color flow imaging demonstrates that there is no vascularity present. IMPRESSION: BENIGN The palpable 1.1 cm oval cyst in the inframammary fold of the right breast is consistent with a sebaceous cyst and is benign. There is no sonographic evidence of malignancy. Return to annual mammogram screening schedule is recommended. Findings and recommendations were conveyed to the patient at time of exam. This exam was interpreted at Station ID: [id number]. Electronically Signed By: Eboni yates/:07/27/2020 14:48:38 letter sent: Normal Exam Ultrasound BI-RADS: 2 Benign
--- NOTE | 2020-07-27 | DI.MG.S_ITS ---
BILATERAL DIGITAL DIAGNOSTIC MAMMOGRAM 3D/2D: 07/27/2020 CLINICAL: Left breast pain and right breast lump. Comparison is made to exams dated: 06/15/2019 mammogram, 11/26/2017 mammogram - [facility], and 03/14/2017 mammogram - [facility]. The tissue of both breasts is predominantly fatty. There is a 1.2 cm oval high density asymmetry with a circumscribed margin in the right breast at 6 o'clock posterior depth. This is seen in additional views. This is more prominent compared to prior and correlates to the palpable abnormality. No other significant masses, calcifications, or other findings are seen in either breast. Specifically, no finding to correspond to the patient's left breast pain. IMPRESSION: INCOMPLETE: NEEDS ADDITIONAL IMAGING EVALUATION The 1.2 cm oval high density asymmetry corresponding to the palpable abnormality in the right breast is indeterminate. An ultrasound is recommended. This was performed immediately following this exam. There is no abnormality seen in the left breast to correspond with the pain at 1 o'clock, however, ultrasound is recommended. This was performed immediately following this exam. This exam was interpreted at Station ID: [id number]. NOTE: For mammograms, a report in lay terms will be sent to the patient. Approximately 15% of breast malignancies will not be visualized mammographically. In the management of a palpable breast mass, a negative mammogram must not discourage biopsy of a clinically suspicious lesion. Electronically Signed By: Eboni yates/:07/27/2020 14:03:33 ACR BI-RADS Category 0: Incomplete 3340F
== END ==
PROVIDERS: PCP Internal Medicine; Referring Provider Internal Medicine; Visit Provider Internal Medicine
DX: R92.8 Other abnormal and inconclusive findings on diagnostic imaging of breast (principal); N60.01 Solitary cyst of right breast; N64.4 Mastodynia
CPT/HCPCS: 76642; 77066; G0279

== ENCOUNTER → 2021-07-14 08:56 | Outpatient (CLI) | payer MEDICARE, OTHER, SELFPAY ==
[2018-12-30 16:32] VITALS: BMI 42.1
[2021-07-14 11:33] LABS: COVID-19 CEPHEID PCR (VTM/NP) Negative (Negative)
== END ==
PROVIDERS: PCP Internal Medicine; Visit Provider Family Medicine Sleep Medicine
DX: Z20.822 Contact with and (suspected) exposure to COVID-19 (principal)
CPT/HCPCS: C9803; U0003; U0005

== ENCOUNTER → 2021-07-31 13:04 | Outpatient (CLI) | payer MEDICARE, OTHER, SELFPAY ==
[2018-12-30 16:32] VITALS: BMI 42.1
--- NOTE | 2021-07-31 | DI.MG.S_ITS ---
BILATERAL DIGITAL SCREENING MAMMOGRAM 3D/2D WITH CAD: 07/31/2021 CLINICAL: Routine screening. Family history of breast cancer. Comparison is made to exams dated: 07/27/2020 mammogram, 06/15/2019 mammogram - [facility], and 03/14/2017 mammogram - [facility]. The tissue of both breasts is predominantly fatty. Current study was also evaluated with a Computer Aided Detection (CAD) system. No significant masses, calcifications, or other findings are seen in either breast. There has been no significant interval change. IMPRESSION: NEGATIVE There is no mammographic evidence of malignancy. A 1 year screening mammogram is recommended. This exam was interpreted at Station ID: [id number]. NOTE: For mammograms, a report in lay terms will be sent to the patient. Approximately 15% of breast malignancies will not be visualized mammographically. In the management of a palpable breast mass, a negative mammogram must not discourage biopsy of a clinically suspicious lesion. Electronically Signed By: Malachi castellon/jennifer:07/31/2021 16:09:06 letter sent: Normal Exam ACR BI-RADS Category 1: Negative 3341F
== END ==
PROVIDERS: PCP Internal Medicine; Referring Provider Internal Medicine; Visit Provider Internal Medicine
DX: Z12.31 Encounter for screening mammogram for malignant neoplasm of breast (principal); Z80.3 Family history of malignant neoplasm of breast; Z13.820 Encounter for screening for osteoporosis; Z78.0 Asymptomatic menopausal state; M85.89 Other specified disorders of bone density and structure, multiple sites
CPT/HCPCS: 77063; 77067; 77080

== ENCOUNTER → 2022-08-09 12:57 | Outpatient (CLI) | payer MEDICARE, OTHER, SELFPAY ==
[2018-12-30 16:32] VITALS: BMI 42.1
--- NOTE | 2022-08-09 13:01 | DI.MG.S_ITS ---
BILATERAL DIGITAL SCREENING MAMMOGRAM 3D/2D WITH CAD: 08/09/2022 CLINICAL: Routine screening. Family history of breast cancer. Comparison is made to exams dated: 07/31/2021 mammogram, 07/27/2020 mammogram, and 06/15/2019 mammogram - [facility]. Both breasts are almost entirely fatty (category a/<25% glandular tissue). Current study was also evaluated with a Computer Aided Detection (CAD) system. No significant masses, calcifications, or other findings are seen in either breast. There has been no significant interval change. IMPRESSION: NEGATIVE There is no mammographic evidence of malignancy. A 1 year screening mammogram is recommended. Based on the Tyrer Cuzick model (a risk assessment model) the patient's lifetime risk is 2.9% and her 10 year risk is 2.1%. According to the ACR, ACS, and NCCN guidelines, an annual breast MRI exam along with mammogram is recommended if the patient's lifetime risk is 20% or greater. This exam was interpreted at Station ID: [id number]. NOTE: For mammograms, a report in lay terms will be sent to the patient. Approximately 15% of breast malignancies will not be visualized mammographically. In the management of a palpable breast mass, a negative mammogram must not discourage biopsy of a clinically suspicious lesion. Electronically Signed By: Fam casiano/jennifer:08/09/2022 15:00:19 letter sent: Normal Exam ACR BI-RADS Category 1: Negative 3341F
== END ==
PROVIDERS: PCP Family Medicine; Referring Provider Family Medicine; Visit Provider Family Medicine
DX: Z12.31 Encounter for screening mammogram for malignant neoplasm of breast (principal); Z80.3 Family history of malignant neoplasm of breast
CPT/HCPCS: 77063; 77067

== ENCOUNTER → 2023-03-14 14:42 | Outpatient (CLI) | payer MEDICARE, OTHER, SELFPAY ==
[2018-12-30 16:32] VITALS: BMI 42.1
--- NOTE | 2023-03-14 | PATH_ITS ---
Note [facility] Accession Number: [id number] TESTS RESULT FLAG UNITS REF RANGE LAB Clinician Provided Cytology Information No. of containers..02 Previously Prepared Cytology Slide 35 Unknown Storage/container code(s) Source: RIGHT INFERIOR THYROID NODULE DIAGNOSIS: RIGHT INFERIOR THYROID NODULE INCONCLUSIVE. [place] CATEGORY III. ATYPIA OF UNDETERMINED SIGNIFICANCE. MOLECULAR STUDIES REQUESTED; RESULTS WILL BE REPORTED SEPARATELY. Pathologist ICD10: R89.6 Signed out by: Demetria Jones MD, Pathologist NPI- [id number] Performed by: Alice Theodore, Music Teacher ([facility]) Gross description: 30 CC, PINK, CLEAR RECIEVED: IN CYTOLYT WITH 6 ALCOHOL FIXED AND 6 QUICK STAINED SLIDES ALSO 1 RNA VIAL WILL ON 11-05-2024.VO /VDU 03/15/2023 [facility] Local FLAG LEGEND: L-Low Normal,H-High Normal,LL-Alert Low,HH-Alert High <-Panic Low,>-Panic High,A-Abnormal,AA-Critical Abnormal Performed at: 01 =Z [facility] [address], [place] [address] Chago Mora MD, Performed at: [facility] [address], [place], [place] [id number] MD Chago Mora MD Phone: [phone]
--- NOTE | 2023-03-14 14:44 | DI.US.S_ITS ---
PROCEDURE: US FINE NEEDLE ASPIRATION INDICATIONS: INFERIOR RIGHT THYROID NODULE TECHNIQUE: The indications, alternatives, benefits, risks, and complications of the procedure were explained to the patient. Written informed consent was obtained and placed in the chart. The area of interest was examined sonographically and a site was chosen for ultrasound guided percutaneous sampling. The skin was prepared and draped in the usual fashion, and anesthetized with 1% lidocaine infiltrated from the skin down to the lesion. Multiple passes were then performed, with contents emptied into an appropriate pathology specimen container. A bandage was applied to the area of access at completion of the study. COMPARISON: None. FINDINGS: Location(s) of lesion(s) sampled: Inferior right thyroid lobe [place]: 25 gauge hypodermic needles. Number of passes: 6 Medications: 1% lidocaine for local anaesthesia. Complications: None. IMPRESSION: Successful ultrasound-guided right thyroid nodule fine needle aspiration, with cytology results pending. Dictated by: Malachi Hurtado M.D. on 03/20/2023 at 22:50 Approved by: Malachi Hurtado M.D. on 03/20/2023 at 22:52
== END ==
PROVIDERS: PCP Family Medicine; Referring Provider Family Medicine; Visit Provider Family Medicine
DX: E04.1 Nontoxic single thyroid nodule (principal)
CPT/HCPCS: 10005

== ENCOUNTER → 2023-08-14 12:40 | Outpatient (CLI) | payer MEDICARE, OTHER, SELFPAY ==
[2018-12-30 16:32] VITALS: BMI 42.1
--- NOTE | 2023-08-14 12:42 | DI.MG.S_ITS ---
BILATERAL DIGITAL SCREENING MAMMOGRAM 3D/2D WITH CAD: 08/14/2023 CLINICAL: Routine screening. Family history of breast cancer. Comparison is made to exams dated: 08/09/2022 mammogram, 07/31/2021 mammogram, and 07/27/2020 mammogram - [facility]. Both breasts are almost entirely fatty (category a/<25% glandular tissue). Current study was also evaluated with a Computer Aided Detection (CAD) system. No significant masses, calcifications, or other findings are seen in either breast. There has been no significant interval change. IMPRESSION: NEGATIVE There is no mammographic evidence of malignancy. A 1 year screening mammogram is recommended. Based on the Tyrer Cuzick model (a risk assessment model) the patient's lifetime risk is 2.7% and her 10 year risk is 2.2%. According to the ACR, ACS, and NCCN guidelines, an annual breast MRI exam along with mammogram is recommended if the patient's lifetime risk is 20% or greater. This exam was interpreted at Station ID: [id number]. NOTE: For mammograms, a report in lay terms will be sent to the patient. Approximately 15% of breast malignancies will not be visualized mammographically. In the management of a palpable breast mass, a negative mammogram must not discourage biopsy of a clinically suspicious lesion. Electronically Signed By: Peter odonnell/jennifer:08/14/2023 13:59:40 letter sent: Normal Exam ACR BI-RADS Category 1: Negative 3341F
== END ==
LOC: MAMMO 12:41
PROVIDERS: PCP Family Medicine; Referring Provider Family Medicine; Visit Provider Family Medicine
DX: Z12.31 Encounter for screening mammogram for malignant neoplasm of breast (principal); R92.313 Mammographic fatty tissue density, bilateral breasts; Z80.3 Family history of malignant neoplasm of breast
CPT/HCPCS: 77063; 77067

== ENCOUNTER → 2023-11-07 08:51 | Outpatient (CLI) | payer MEDICARE, OTHER, SELFPAY ==
[2018-12-30 16:32] VITALS: BMI 42.1
== END ==
LOC: WC 08:53
PROVIDERS: PCP Family Medicine; Referring Provider Orthopaedic Surgery; Visit Provider Nurse Practitioner Family
DX: L89.893 Pressure ulcer of other site, stage 3 (principal); I10 Essential (primary) hypertension; E66.01 Morbid (severe) obesity due to excess calories; Z68.43 Body mass index [BMI] 50.0-59.9, adult
CPT/HCPCS: 11042; 99204; 99213

== ENCOUNTER → 2023-11-14 11:18 | Outpatient (CLI) | payer MEDICARE, OTHER, SELFPAY ==
[2018-12-30 16:32] VITALS: BMI 42.1
== END ==
LOC: WC 11:19
PROVIDERS: PCP Family Medicine; Referring Provider Orthopaedic Surgery; Visit Provider Surgery
DX: L89.893 Pressure ulcer of other site, stage 3 (principal); I10 Essential (primary) hypertension; E66.01 Morbid (severe) obesity due to excess calories; Z68.43 Body mass index [BMI] 50.0-59.9, adult
CPT/HCPCS: 11042; 99213

== ENCOUNTER → 2023-11-21 09:40 | Outpatient (CLI) | payer MEDICARE, OTHER, SELFPAY ==
[2018-12-30 16:32] VITALS: BMI 42.1
== END ==
LOC: WC 09:45
PROVIDERS: PCP Family Medicine; Referring Provider Orthopaedic Surgery; Visit Provider Surgery
DX: L89.113 Pressure ulcer of right upper back, stage 3 (principal); L53.8 Other specified erythematous conditions
CPT/HCPCS: 11042

== ENCOUNTER → 2023-11-27 13:31 | Outpatient (CLI) | payer MEDICARE, OTHER, SELFPAY ==
[2018-12-30 16:32] VITALS: BMI 42.1
== END ==
LOC: WC 13:38
PROVIDERS: PCP Family Medicine; Referring Provider Orthopaedic Surgery; Visit Provider Surgery
DX: L89.893 Pressure ulcer of other site, stage 3 (principal); L53.9 Erythematous condition, unspecified; E66.01 Morbid (severe) obesity due to excess calories; Z68.43 Body mass index [BMI] 50.0-59.9, adult
CPT/HCPCS: 11042

== ENCOUNTER → 2023-12-04 13:52 | Outpatient (CLI) | payer MEDICARE, OTHER, SELFPAY ==
[2018-12-30 16:32] VITALS: BMI 42.1
== END ==
PROVIDERS: PCP Family Medicine; Referring Provider Orthopaedic Surgery; Visit Provider Surgery
DX: L89.893 Pressure ulcer of other site, stage 3 (principal); I10 Essential (primary) hypertension; E66.9 Obesity, unspecified; Z68.43 Body mass index [BMI] 50.0-59.9, adult
CPT/HCPCS: 11042

== ENCOUNTER → 2023-12-18 13:55 | Outpatient (CLI) | payer MEDICARE, OTHER, SELFPAY ==
[2018-12-30 16:32] VITALS: BMI 42.1
== END ==
PROVIDERS: PCP Family Medicine; Referring Provider Orthopaedic Surgery; Visit Provider Surgery
DX: Z09 Encounter for follow-up examination after completed treatment for conditions other than malignant neoplasm (principal); Z87.2 Personal history of diseases of the skin and subcutaneous tissue; L89.893 Pressure ulcer of other site, stage 3
CPT/HCPCS: 99212; 99213

== ENCOUNTER → 2024-09-08 14:54 | Outpatient (CLI) | payer MEDICARE, OTHER, SELFPAY ==
[2018-12-30 16:32] VITALS: BMI 42.1
--- NOTE | 2024-09-08 15:00 | DI.MG.S_ITS ---
MM screening mammo BI: 09/08/2024. BI-RADS: 2 CLINICAL: 74-year old female for bilateral screening mammogram. Tyrer-Cuzick lifetime risk of 2.3%. Current reported family history of breast cancer: sister. The patient is status-post reduction mammoplasty. PRIOR EXAMS 08/14/2023, 08/09/2022, 07/31/2021, 07/27/2020, 06/15/2019, 11/26/2017, 05/23/2017. MAMMOGRAPHY TECHNIQUE: 2D and 3D (tomosynthesis) digital mammographic views obtained, with additional images as needed for full coverage. Current study was also evaluated with a Computer Aided Detection (CAD) system. DENSITY A. The breasts are almost entirely fatty. MAMMOGRAPHY FINDINGS Right: Benign-appearing mass noted on the right. There are no suspicious masses, calcifications, or other findings in the breast. No significant change from comparison. Left: Benign-appearing calcification noted on the left. There are no suspicious masses, calcifications, or other findings in the breast. No significant change from comparison. IMPRESSION: * No evidence of malignancy with benign findings. RECOMMENDATIONS Bilateral * Annual screening mammography. OVERALL ASSESSMENT CATEGORY BI-RADS-2: Benign. The [employer] recommends annual screening mammography beginning at age 40 for women with average risk of breast cancer. ELECTRONICALLY SIGNED: Eboni Alonso M.D. on 09/09/2024 at 09:11:18 AM PT Interpreting Station ID: [id number]
== END ==
LOC: MAMMO 14:59
PROVIDERS: PCP Family Medicine; Referring Provider Family Medicine; Visit Provider Family Medicine
DX: Z12.31 Encounter for screening mammogram for malignant neoplasm of breast (principal); Z80.3 Family history of malignant neoplasm of breast; R92.313 Mammographic fatty tissue density, bilateral breasts
CPT/HCPCS: 77063; 77067